=== PATIENT | female | born 1940 | race Caucasian/White ===

== ENCOUNTER 2016-10-02 12:27 | Inpatient (IN) | payer MEDICARE, BC ==
[~2016-10-02] VITALS: Ht 170.2 cm; Wt 118.0 kg
[~2016-10-02 12:27] MED LIST: AUGM875T PO; BACT800T5 PO; CARV6.25 PO; DILT31TA PO; EFFE25TA PO; LEVEMIR SQ; MAGN400T PO; METO2.5T7 PO; MIRA33502 PO; NOVOLOGSS SQ; PERC7.5T13 PO; PROBCAP4 PO; ROBA500T PO; SPIR25TA PO; STOO100T PO; TORS1TAB12 PO; WARF5TAB PO
[2016-10-02 12:44] VITALS: BP 145/89; PULSE 89; RESP 18; TEMP 98; O2SAT 100
[2016-10-02 12:49] VITALS: BP 145/89; PULSE 91; RESP 18; TEMP 98; O2SAT 100
[2016-10-02] MEDS ORDERED: SODIUM CHLOR 0.9% 1000 ML INJ 1,000 ML IV ONE (13:15)
--- NOTE | 2016-10-02 13:17 | PD ---
HPI . Constipation Chief Complaint: GI Complaint Time Seen by Provider: 12:57 Travel History International Travel<30 days: No Contact w/Intl Traveler<30days: No Traveled to known affect area: No History of Present Illness HPI This is a 76 year old female with morbid obesity, DM, CHF, HTN, Hyperlipidemia, Incontinence, and GENIA who presents with with a 10 day history of severe constipation. She reports not eating the past two days and this morning she had explosive diarrhea. She has been taking MiraLax and Dulcolax daily. She reports tenesmus, anxiety, lightheadedness, nausea, and mild diffuse abdominal pain. She denies any fevers, chest pain, SOB, hematochezia, melena, or hematemesis. She has no allergies. PFSH Past Medical History Hx Anticoagulant Therapy: Yes (WARFARIN ) Arthritis: Yes Asthma: No Atrial Fibrillation: Yes Blood Disorders: No Anxiety: Yes Depression: Yes Heart Rhythm Problems: Yes Cancer: Yes (CERVICAL ) Cardiovascular Problems: Yes (CHF, A FIB) High Cholesterol: No Chemotherapy: No Chest Pain: No Congestive Heart Failure: Yes COPD: No Cerebrovascular Accident: No Diabetes: Yes (TYPE 2 INSULIN DEPENDENT) Patient Takes Glucophage: No Diminished Hearing: No Endocrine: Yes Gastrointestinal Disorders: Yes GERD: No Glaucoma: No Genitourinary: Yes (INCONTINENT OF URINE) Hepatitis: No Hiatal Hernia: No Hypertension: Yes Immune Disorder: No Implanted Vascular Access Dvce: Yes Kidney Stones: No Musculoskeletal: Yes (ARTHRITIS) Neurologic: Yes Psychiatric: No Reproductive: No Respiratory: Yes Immunizations Current: No Migraines: No Myocardial Infarction: No Radiation Therapy: No Renal Failure: No Seizures: No Sleep Apnea: Yes (CPAP AT NIGHT) Thyroid Disease: No Ulcer: No Tetanus Vaccination: Unknown Influenza Vaccination: No ?: Not Menopausal: Yes Tubal Ligation: Yes Past Surgical History Abdominal Surgery: Yes (LAP BAND MAR 20, GALL BLADDER (67)) AICD: No Appendectomy: No Arteriovenous Shunt: No Body Medical Devices: ARTIFICAL KNEES BILATERALLY, LAPBAND Cholecystectomy: Yes Genitourinary Surgery: No Gynecologic Surgery: Yes (HYST AND TUBAL LIGATION, CA CERVIX) Hysterectomy: Yes Insulin Pump: No Joint Replacement: Yes (BILAT KNEE 2007) Pacemaker: No Thoracic Surgery: No Tonsillectomy: Yes Other Surgery: Yes (GALLBLADDER SURGERY, 2 COMPLETE KNEES, LAPBAND) Social History Alcohol Use: No Tobacco Use: No (10 PACK YEARS) 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) Allergies-Medications (Allergen,Severity, Reaction): Coded Allergies: *MDRO Multi-Drug Resistant Organism (Verified Adverse Reaction, Unknown, ) MRSA leg wound 10/2014, 11/2014, 02/2015 Reported Meds & Prescriptions Reported Meds & Active Scripts Active Bactrim DS (Sulfamethoxazole-Trimethoprim DS) 1 Tab Tab 1 Tab PO BID Augmentin 875 mg Tab (Amoxicillin & Pot Clavulanate 875 mg Tab) 875 Mg Tab 875 Mg PO BID Miralax (Polyethylene Glycol) 255 Gm Powd 1 Capful PO Q2HR PRN 5 Days MIX 1 CAPFUL (17 GM) IN 8 OZ WATER Coreg 6.25 mg (Carvedilol) 6.25 Mg Tab 12.5 Mg PO BID 30 Days Reported Probiotic Acidophilus (Acidophilus) Cap 1 Tab PO DAILY Levemir Insulin (Insulin Detemir) 100 Units/Ml Inj 50 Units SQ BID Robaxin (Methocarbamol) 500 Mg Tab 1,000 Mg PO PRN Effervescent Potassium/Ch (Potassium Bicarb & Chloride) 25 Meq Tab 75 Meq PO BID Mag-Ox 400 (Magnesium Oxide) 400 Mg Tab 400 Mg PO BID Cardizem 30 mg tab (Diltiazem HCl) 30 Mg Tab 30 Mg PO DAILY Demadex 20 mg (Torsemide) 20 Mg Tab 20 Mg PO BID Percocet 7.5/325 (Oxycodone/Acetaminophen) Oxycodone 7.5/325 Acetaminophen Tab 1 Tab PO Q6H PRN Warfarin Sodium 5 mg (Warfarin Sodium) 5 Mg Tab 5 Mg PO MOTUWETHFRSA EVERY DAY EXCEPT FRIDAY Stool Softener (Docusate Sodium) 100 Mg Tab 100 Mg PO HS Novolog Insulin Supplemental Scale (Insulin Aspart) 100 /Ml Inj Unknown Dose SQ TIDACHS Max dose at bedtime:( )units; sugars less than 70, (0)units; sugars 150-199, (5)unit; sugars 200-249, (10)units; sugars 250-299, (15) units; sugars 300-349, (20)units; sugars greater than 349, (25)units Spironolactone 25 Mg Tab 25 Mg PO BID Metolazone 2.5 Mg Tab 2.5 Mg PO BID Review of Systems Except as stated in HPI: all other systems reviewed are Neg General / Constitutional: No: Fever, Chills HENT: Positive: Lightheadedness, No: Headaches Cardiovascular: Positive: Diaphoresis, Syncope (near syncope after defecating ) , No: Chest Pain or Discomfort, Palpitations Respiratory: No: Cough, Shortness of Breath, Wheezing Gastrointestinal: Positive: Nausea, Diarrhea, Abdominal Pain, Constipation, No : Vomiting, Hematemesis, Hematochezia Genitourinary: No: Urgency, Frequency, Dysuria Skin: Positive Rash Neurologic: Positive: Weakness, Dizziness Physical Exam Narrative GENERAL: This is an obese female examined at bedside. She is in no acute distress She is alert and oriented x3. SKIN: Warm and dry. HEAD: Atraumatic. Normocephalic. EYES: Pupils equal and round. ENT: No nasal bleeding or discharge. Mucous membranes pink and moist. NECK: Trachea midline. CARDIOVASCULAR: Regular rate and rhythm. RESPIRATORY: No accessory muscle use. GASTROINTESTINAL: Abdomen is full but soft, no areas of focal tenderness. Bowel sounds are decreased.No rebound or guarding. MUSCULOSKELETAL: No obvious deformities. No edema. NEUROLOGICAL: Awake and alert. No obvious cranial nerve deficits. Motor grossly within normal limits. Normal speech. PSYCHIATRIC: Appropriate mood and affect; insight and judgment normal. Data Data Last Documented VS Vital Signs Date Time Temp Pulse Resp B/P (MAP) Pulse Ox O2 Delivery O2 Flow Rate FiO2 10/02/16 12:49 18 10/02/16 12:49 98.0 91 145/89 (107) 100 Room Air Orders Orders Urinalysis - C+S If Indicated (10/02/16 13:06) Sodium Chlor 0.9% 1000 Ml Inj (Ns 1000 M (10/02/16 13:15) Abdomen, Flat & Upright (10/02/16 ) Complete Blood Count With Diff (10/02/16 13:06) Comprehensive Metabolic Panel (10/02/16 13:06) Labs Laboratory Tests Test 10/02/16 13:20 White Blood Count 11.3 TH/MM3 Red Blood Count 5.65 MIL/MM3 Hemoglobin 15.0 GM/DL Hematocrit 44.6 % Mean Corpuscular Volume 79.0 FL Mean Corpuscular Hemoglobin 26.6 PG Mean Corpuscular Hemoglobin Concent 33.7 % Red Cell Distribution Width 15.4 % Platelet Count 295 TH/MM3 Mean Platelet Volume 8.6 FL Neutrophils (%) (Auto) 80.1 % Lymphocytes (%) (Auto) 11.0 % Monocytes (%) (Auto) 8.0 % Eosinophils (%) (Auto) 0.2 % Basophils (%) (Auto) 0.7 % Neutrophils # (Auto) 9.0 TH/MM3 Lymphocytes # (Auto) 1.2 TH/MM3 Monocytes # (Auto) 0.9 TH/MM3 Eosinophils # (Auto) 0.0 TH/MM3 Basophils # (Auto) 0.1 TH/MM3 CBC Comment DIFF FINAL Differential Comment Blood Urea Nitrogen 36 MG/DL Creatinine 1.20 MG/DL Random Glucose 213 MG/DL Total Protein 9.3 GM/DL Albumin 3.1 GM/DL Calcium Level 10.0 MG/DL Alkaline Phosphatase 84 U/L Aspartate Amino Transf (AST/SGOT) 23 U/L Alanine Aminotransferase (ALT/SGPT) 14 U/L Total Bilirubin 1.0 MG/DL Sodium Level 128 MEQ/L Potassium Level 3.1 MEQ/L Chloride Level 84 MEQ/L Carbon Dioxide Level 32.2 MEQ/L Anion Gap 12 MEQ/L Estimat Glomerular Filtration Rate 44 ML/MIN [facility] Medical Decision Making Medical Screen Exam Complete: Yes Emergency Medical Condition: Yes Differential Diagnosis Differential diagnosis of abdominal pain includes but is not limited to gastritis, pancreatitis, hepatitis, gastroenteritis, gallbladder disease, constipation, urinary retention, UTI, peptic ulcer disease, diverticulitis or appendicitis Narrative Course This patient presents with abdominal pain and constipation. She states her last normal bowel movement was more than a week ago. She does state that she has been taking MiraLAX and had a loose stool prior to presentation. Last Impressions Abdomen X-Ray 10/02/16 0000 Signed Impressions: Service Date/Time: Sunday, October 02, 2016 13:33 - CONCLUSION: 1. Postsurgical features of prior lap band procedure. 2. Stool noted throughout the colon consistent with some degree of constipation. 3. Borderline prominent loops of small bowel primarily in the left upper abdomen. This is nonspecific although very early developing ileus or partial small bowel obstruction cannot be excluded. Kevin Hung MD CBC & BMP Diagram 10/02/16 13:20 Total Protein 9.3 H, Albumin 3.1 L, Calcium Level 10.0, Alkaline Phosphatase 84 , Aspartate Amino Transf (AST/SGOT) 23, Alanine Aminotransferase (ALT/SGPT) 14, Total Bilirubin 1.[address] Physician Communication Physician Communication Dr. Benitez Diagnosis Primary Impression: Hyponatremia Additional Impressions: Hypokalemia Dehydration Constipation Qualified Codes: K59.00 - Constipation, unspecified Admitting Information Admitting Physician Requests: Observation Condition: Stable Beatriz Davies MD Oct 02, 2016 13:17
[2016-10-02 13:41] LABS: BASOPHIL # 0.1 TH/MM3 (0-0.2); BASOPHIL % 0.7 % (0.0-2.0); EOSINOPHIL % 0.2 % (0.0-4.0); HEMATOCRIT 44.6 % (35.0-46.0); HEMO FLAGS DIFF FINAL; LYMPHOCYTE # 1.2 TH/MM3 (1.0-4.8); MEAN CORPUSCULAR HEMOGLOBIN 26.6 PG (27.0-34.0); MEAN CORPUSCULAR HGB CONC 33.7 % (32.0-36.0); NEUT % 80.1 % (16.0-70.0); PLATELET COUNT 295 TH/MM3 (150-450); RED BLOOD COUNT 5.65 MIL/MM3 (4.00-5.30); RED CELL DISTRIBUTION WIDTH 15.4 % (11.6-17.2); WHITE BLOOD COUNT 11.3 TH/MM3 (4.0-11.0)
[2016-10-02 14:03] LABS: ALKALINE PHOSPHATASE 84 U/L (45-117)
[2016-10-02 14:06] LABS: ALT (GPT) 14 U/L (10-53); ANION GAP 12 MEQ/L (5-15); AST (GOT) 23 U/L (15-37); BICARBONATE 32.2 MEQ/L (21.0-32.0); BLOOD UREA NITROGEN 36 MG/DL (7-18); CHLORIDE 84 MEQ/L (98-107); GLOMERULAR FILTRATION RATE 44 ML/MIN (>89); SODIUM (NA) 128 MEQ/L (136-145)
[2016-10-02 14:08] LABS: POTASSIUM 3.1 MEQ/L (3.5-5.1)
--- NOTE | 2016-10-02 14:11 | RADRPT ---
EXAM DATE/TIME: 10/02/2016 13:33 [facility] COMPARISON: No previous studies available for comparison. INDICATIONS : Abdominal pain and constipation for ten days. MEDICAL HISTORY : SURGICAL HISTORY : Tubal ligation. Cholecystectomy. Hysterectomy. Lap band ENCOUNTER: Initial ACUITY: 2 weeks PAIN SCORE: 10/10 LOCATION: Bilateral Abdomen FINDINGS: Postsurgical features of lap band procedure with reservoir in the right lower quadrant. Air and stool seen throughout the colon. There are borderline prominent loops of small bowel primarily in the left upper abdomen. No significant air-fluid levels. No free air or pneumatosis. No abnormal calcificatio ns. Osseous structures are grossly intact. CONCLUSION: 1. Postsurgical features of prior lap band procedure. 2. Stool noted throughout the colon consistent with some degree of constipation. 3. Borderline prominent loops of small bowel primarily in the left upper abdomen. This is nonspecific although very early developing ileus or partial small bowel obstruction cannot be excluded. Kevin Hnug MD on October 02, 2016 at 14:04 Board Certified Radiologist. This report was verified electronically.
[2016-10-02 15:00] VITALS: BP 139/86; PULSE 93; RESP 18; O2SAT 98
[2016-10-02] MEDS ORDERED: DEXTROSE 50% IN WATER 50 ML VIAL(D50) IV PRN (15:15)
[2016-10-02] MEDS ORDERED: hydrALAZINE HCL 25 MG TAB PO PRN (15:15)
[2016-10-02] MEDS ORDERED: RESP: ALBUTEROL 2.5 MG/IPRATROPIUM 0.5 MG NEB (PRN) NEB (15:15)
[2016-10-02] MEDS ORDERED: GLUCAGON 1 MG/ML VIAL OTHER PRN (15:15)
[2016-10-02] MEDS ORDERED: ONDANSETRON HCL 4 MG/2 ML VIAL IVP PRN (15:15)
[2016-10-02] MEDS ORDERED: SODIUM CHLORIDE 0.9% FLUSH 10 ML FLUSH IV FLUSH PRN (15:15)
--- NOTE | 2016-10-02 15:18 | HHI.HP ---
[facility] Megan Strong MD Admission Diagnosis constipation, hyponatremia, hypokalemia Diagnoses: (1) Abdominal pain (2) Constipation (3) Hyponatremia (4) Hypokalemia Chief Complaint: Abdominal pain Travel History International Travel<30 Days: No Contact w/Intl Traveler <30 Da: No Traveled to Known Affected Are: No History of Present Illness 76-year-old female with a history of diabetes type 2, CHF, atrial fibrillation came to the ED for evaluation of severe abdominal pain due to constipation 10 days despite taking Miralax and Dulcolax. Patient has a history of neuropathy for which she is on chronic narcotics as well as medicinal marijuana. Although patient had one episode of exposed diarrhea this morning, she stated however when she went to sit on the toilet bowl she could not go. She reported decreased appetite and decreased by mouth intake for the past 2 days. Patient was found to have abnormal sodium and potassium. 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 History of cervical cancer Past Surgical History Total hysterectomy Lap Band in 2007 Tonsillectomy Cholecystectomy BL Total Knee replacements Reported Medications Bactrim DS (Sulfamethoxazole-Trimethoprim DS) 1 Tab Tab 1 Tab PO BID Augmentin 875 mg Tab (Amoxicillin & Pot Clavulanate 875 mg Tab) 875 Mg Tab 875 Mg PO BID Miralax (Polyethylene Glycol) 255 Gm Powd 1 Capful PO Q2HR PRN 5 Days MIX 1 CAPFUL (17 GM) IN 8 OZ WATER Coreg 6.25 mg (Carvedilol) 6.25 Mg Tab 12.5 Mg PO BID 30 Days Reported Probiotic Acidophilus (Acidophilus) Cap 1 Tab PO DAILY Levemir Insulin (Insulin Detemir) 100 Units/Ml Inj 50 Units SQ BID Robaxin (Methocarbamol) 500 Mg Tab 1,000 Mg PO PRN Effervescent Potassium/Ch (Potassium Bicarb & Chloride) 25 Meq Tab 75 Meq PO BID Mag-Ox 400 (Magnesium Oxide) 400 Mg Tab 400 Mg PO BID Cardizem 30 mg tab (Diltiazem HCl) 30 Mg Tab 30 Mg PO DAILY Demadex 20 mg (Torsemide) 20 Mg Tab 20 Mg PO BID Percocet 7.5/325 (Oxycodone/Acetaminophen) Oxycodone 7.5/325 Acetaminophen Tab 1 Tab PO Q6H PRN Warfarin Sodium 5 mg (Warfarin Sodium) 5 Mg Tab 5 Mg PO MOTUWETHFRSA EVERY DAY EXCEPT FRIDAY Stool Softener (Docusate Sodium) 100 Mg Tab 100 Mg PO HS Novolog Insulin Supplemental Scale (Insulin Aspart) 100 /Ml Inj Unknown Dose SQ TIDACHS Max dose at bedtime:( )units; sugars less than 70, (0)units; sugars 150-199, (5)unit; sugars 200-249, (10)units; sugars 250-299, (15) units; sugars 300-349, (20)units; sugars greater than 349, (25)units Spironolactone 25 Mg Tab 25 Mg PO BID Metolazone 2.5 Mg Tab 2.5 Mg PO BID Allergies: Coded Allergies: *MDRO Multi-Drug Resistant Organism (Verified Adverse Reaction, Unknown, ) MRSA leg wound 10/2014, 11/2014, 02/2015 Family History Not relevant secondary to patient age Social History Never smoked, denies Etoh, denies drug use. Physical Exam Vital Signs Vital Signs Date Time Temp Pulse Resp B/P (MAP) Pulse Ox O2 Delivery O2 Flow Rate FiO2 10/02/16 12:49 18 10/02/16 12:49 98.0 91 18 145/89 (107) 100 Room Air 10/02/16 12:44 98.0 89 18 145/89 (107) 100 Physical Exam GENERAL: This is a well-nourished, well-developed obese patient, in no apparent distress. SKIN: No rashes, ecchymoses or lesions. Cool and dry. HEAD: Atraumatic. Normocephalic. No temporal or scalp tenderness. EYES: Pupils equal round and reactive. Extraocular motions intact. No scleral icterus. No injection or drainage. ENT: Nose without bleeding, purulent drainage or septal hematoma. Throat without erythema, tonsillar hypertrophy or exudate. Uvula midline. Airway patent. NECK: Trachea midline. No JVD or lymphadenopathy. Supple, nontender, no meningeal signs. CARDIOVASCULAR: Regular rate and rhythm without murmurs, gallops, or rubs. RESPIRATORY: Clear to auscultation. Breath sounds equal bilaterally. No wheezes , rales, or rhonchi. GASTROINTESTINAL: Abdomen soft, mildly tender, nondistended. No hepato- splenomegaly, or palpable masses. No guarding. Positive bowel sounds MUSCULOSKELETAL: Extremities without clubbing, cyanosis, or edema. No joint tenderness, effusion, or edema noted. No calf tenderness. Negative Homans sign bilaterally. NEUROLOGICAL: Awake and alert. Cranial nerves II through XII intact. Motor and sensory grossly within normal limits. Five out of 5 muscle strength in all muscle groups. Normal speech. Laboratory Laboratory Tests Test 10/02/16 13:20 White Blood Count 11.3 Red Blood Count 5.65 Hemoglobin 15.0 Hematocrit 44.6 Mean Corpuscular Volume 79.0 Mean Corpuscular Hemoglobin 26.6 Mean Corpuscular Hemoglobin Concent 33.7 Red Cell Distribution Width 15.4 Platelet Count 295 Mean Platelet Volume 8.6 Neutrophils (%) (Auto) 80.1 Lymphocytes (%) (Auto) 11.0 Monocytes (%) (Auto) 8.0 Eosinophils (%) (Auto) 0.2 Basophils (%) (Auto) 0.7 Neutrophils # (Auto) 9.0 Lymphocytes # (Auto) 1.2 Monocytes # (Auto) 0.9 Eosinophils # (Auto) 0.0 Basophils # (Auto) 0.1 CBC Comment DIFF FINAL Differential Comment Blood Urea Nitrogen 36 Creatinine 1.20 Random Glucose 213 Total Protein 9.3 Albumin 3.1 Calcium Level 10.0 Alkaline Phosphatase 84 Aspartate Amino Transf (AST/SGOT) 23 Alanine Aminotransferase (ALT/SGPT) 14 Total Bilirubin 1.0 Sodium Level 128 Potassium Level 3.1 Chloride Level 84 Carbon Dioxide Level 32.2 Anion Gap 12 Estimat Glomerular Filtration Rate 44 Result Diagram: 10/02/16 1320 10/02/16 1320 Imaging Last Impressions Abdomen X-Ray 10/02/16 0000 Signed Impressions: Service Date/Time: Sunday, October 02, 2016 13:33 - CONCLUSION: 1. Postsurgical features of prior lap band procedure. 2. Stool noted throughout the colon consistent with some degree of constipation. 3. Borderline prominent loops of small bowel primarily in the left upper abdomen. This is nonspecific although very early developing ileus or partial small bowel obstruction cannot be excluded. MD Claudio Robison VTE Risk Assessment Caprini Risk Assessment Model Point Value = 1 Point Value = 2 Point Value = 3 Point Value = 5 Age 41-60 Minor surgery BMI > 25 kg/m2 Swollen legs Varicose veins or History of unexplained or recurrent spontaneous Oral contraceptives or hormone replacement Sepsis (< 1 month) Serious lung disease, including pneumonia (< 1 month) Abnormal pulmonary function Acute myocardial infarction Congestive heart failure (< 1 month) History of inflammatory bowel disease Medical patient at bed rest Age 61-74 Arthroscopic surgery Major open surgery (> 45 min) Laparoscopic surgery (> 45 min) Malignancy Confined to bed (> 72 hours) Immobilizing plaster cast Central venous access Age >= 75 History of VTE Family history of VTE Factor V Leiden Prothrombin [id number] Lupus anticoagulant Anticardiolipin antibodies Elevated serum homocysteine Heparin-induced thrombocytopenia Other congenital or acquired thrombophilia Stroke (< 1 month) Elective arthroplasty Hip, pelvis, or leg fracture Acute spinal cord injury (< 1 month) Prophylaxis Regimen Total Risk Factor Score Risk Level Prophylaxis Regimen 0-1 Low Early ambulation 2 Moderate Order ONE of the following: *Sequential Compression Device (SCD) *Heparin 5000 units SQ BID 3-4 Higher Order ONE of the following medications: *Heparin 5000 units SQ TID *Enoxaparin/Lovenox 40 mg SQ daily (WT < 150 kg, CrCl > 30 mL/min) *Enoxaparin/Lovenox 30 mg SQ daily (WT < 150 kg, CrCl > 10-29 mL/min) *Enoxaparin/Lovenox 30 mg SQ BID (WT < 150 kg, CrCl > 30 mL/min) AND/OR *Sequential Compression Device (SCD) 5 or more Highest Order ONE of the following medications: *Heparin 5000 units SQ TID (Preferred with Epidurals) *Enoxaparin/Lovenox 40 mg SQ daily (WT < 150 kg, CrCl > 30 mL/min) *Enoxaparin/Lovenox 30 mg SQ daily (WT < 150 kg, CrCl > 10-29 mL/min) *Enoxaparin/Lovenox 30 mg SQ BID (WT < 150 kg, CrCl > 30 mL/min) AND *Sequential Compression Device (SCD) Assessment and Plan Problem List: (1) Abdominal pain ICD Code: R10.9 - Unspecified abdominal pain (2) Hyponatremia ICD Code: E87.1 - Hypo-osmolality and hyponatremia Status: Acute (3) Hypokalemia ICD Code: E87.6 - Hypokalemia Status: Acute Assessment and Plan 76 yrs old female Abdominal pain Constipation secondary to narcotics use X-ray abdomen noted and review by me with finding of constipation as well as possible ileus vs partial SBO Repeat flat and upright in a.m. Treat with stool softener now Hyponatremia Start normal saline and monitor electrolytes Hypokalemia Give potassium 60 mEq 1 now Acute on chronic kidney disease stage III Gentle IV fluid hydration Monitor BUN and creatinine and avoid all nephrotoxic drugs Diabetes type 2 Poorly controlled blood glucose Resume outpatient medications and start insulin sliding scale Check hemoglobin A1c History of atrial fibrillation Check INR/PT Resume Coreg and warfarin, monitor INR/PT Other chronic medical conditions Resume outpatient medications DVT prophylaxis: Coumadin Code Status Full code Discussed Condition With Patient, ED physician Problem Qualifiers (1) Constipation: Qualified Codes: K59.00 - Constipation, unspecified Mj Benitez MD Oct 02, 2016 15:18
[2016-10-02] MEDS ORDERED: LYRI50CA PO (15:22)
[2016-10-02] MEDS ORDERED: KLOR25TA2 PO (15:22)
[2016-10-02] MEDS ORDERED: METO5TAB3 PO (15:22)
[2016-10-02] MEDS ORDERED: NOVOLOGP2 SQ (15:22)
[2016-10-02] MEDS ORDERED: OXYC1TAB36 PO (15:22)
[2016-10-02] MEDS ORDERED: STOO100C PO (15:22)
[2016-10-02] MEDS ORDERED: VITA1000 PO (15:22)
[2016-10-02] MEDS ORDERED: INSU1INJ14 SQ (15:22)
[2016-10-02] MEDS ORDERED: TORS20TA PO (15:22)
[2016-10-02] MEDS ORDERED: MAGN400T PO (15:22)
[2016-10-02] MEDS ORDERED: CARV12.52 PO (15:22)
[2016-10-02] MEDS ORDERED: GARC500T PO (15:22)
[2016-10-02] MEDS ORDERED: WARF-18 PO (15:22)
[2016-10-02] MEDS: INSULIN ASPART SUPPLEMENTAL SCALE SQ SCH ×2 (16:00→21:00)
[2016-10-02] MEDS ORDERED: POTASSIUM CHLORIDE 20 MEQ CONTROLLED RELEASE TAB PO ONE (16:00)
[2016-10-02] MEDS: SODIUM CHLOR 0.9% 1000 ML INJ 1,000 ML IV SCH ×2 (17:32→21:08)
[2016-10-02] MEDS ORDERED: [UNRECOGNIZED DRUG - OTHER] PO SCH (21:00)
[2016-10-02] MEDS ORDERED: GARCINIA CAMBOGIA PO SCH (21:00)
[2016-10-02] MEDS ORDERED: CHROMIUM PO SCH (21:00)
[2016-10-02] MEDS: INSULIN DEGLUDEC 80 UNIT SQ SCH (21:00)
[2016-10-02] MEDS: ACETAMINOPHEN 325 MG TAB PO PRN (21:06)
[2016-10-02] MEDS: SODIUM CHLORIDE 0.9% FLUSH 10 ML FLUSH IV FLUSH SCH (21:06)
[2016-10-02] MEDS: TEMAZEPAM 15 MG CAP PO PRN (21:06)
[2016-10-02 22:43] LABS: INTERNATIONAL NORMALIZED RATIO 1.4 RATIO; PROTHROMBIN TIME - PATIENT 16.1 SEC (9.8-11.6)
[2016-10-02 23:43] VITALS: BP 140/71; PULSE 95; RESP 19; TEMP 98.2; O2SAT 98
[2016-10-03 03:58] VITALS: BP 147/88; PULSE 89; RESP 19; TEMP 97.7; O2SAT 97
[2016-10-03 05:34] LABS: AUTOMATED NEUTROPHIL # 10.1 TH/MM3 (1.8-7.7); BASOPHIL % 0.3 % (0.0-2.0); EOSINOPHIL % 0.1 % (0.0-4.0); HEMATOCRIT 41.4 % (35.0-46.0); HEMO FLAGS DIFF FINAL; LYMPH % 13.9 % (9.0-44.0); LYMPHOCYTE # 1.8 TH/MM3 (1.0-4.8); MEAN CELL VOLUME 78.9 FL (80.0-100.0); MEAN CORPUSCULAR HEMOGLOBIN 26.6 PG (27.0-34.0); MEAN CORPUSCULAR HGB CONC 33.7 % (32.0-36.0); MONO % 8.8 % (0.0-8.0); NEUT % 76.9 % (16.0-70.0); PLATELET COUNT 323 TH/MM3 (150-450); RED BLOOD COUNT 5.25 MIL/MM3 (4.00-5.30); RED CELL DISTRIBUTION WIDTH 15.4 % (11.6-17.2); WHITE BLOOD COUNT 13.2 TH/MM3 (4.0-11.0)
[2016-10-03 05:44] LABS: INTERNATIONAL NORMALIZED RATIO 1.4 RATIO; PROTHROMBIN TIME - PATIENT 15.8 SEC (9.8-11.6)
[2016-10-03 05:57] LABS: ANION GAP 6 MEQ/L (5-15)
[2016-10-03 05:59] LABS: ALKALINE PHOSPHATASE 79 U/L (45-117); ALT (GPT) 12 U/L (10-53); AST (GOT) 15 U/L (15-37); BICARBONATE 34.6 MEQ/L (21.0-32.0); BLOOD UREA NITROGEN 27 MG/DL (7-18); CHLORIDE 92 MEQ/L (98-107); GLOMERULAR FILTRATION RATE 54 ML/MIN (>89); SODIUM (NA) 133 MEQ/L (136-145); TOTAL BILIRUBIN ADULT 1.1 MG/DL (0.2-1.0)
[2016-10-03 06:03] LABS: POTASSIUM 2.8 MEQ/L (3.5-5.1)
[2016-10-03] MEDS ORDERED: POTASSIUM CHLORIDE 20 MEQ CONTROLLED RELEASE TAB PO ONE ×2 (06:30→08:30)
--- NOTE | 2016-10-03 06:42 | RADRPT ---
EXAM DATE/TIME: 10/03/2016 06:12 [facility] COMPARISON: ABDOMEN FLAT & UPRIGHT, October 02, 2016, 13:33. INDICATIONS : Abdominal pain, vomiting MEDICAL HISTORY : None. SURGICAL HISTORY : Tubal ligation. Cholecystectomy. Hysterectomy. Lap band ENCOUNTER: Subsequent ACUITY: 2 weeks PAIN SCORE: 10/10 LOCATION: Bilateral abdomen FINDINGS: Supine and upright views of the abdomen were performed. Again seen is a mild ileus. No free air. No e vidence for obstruction. Stable postsurgical changes. No acute bony findings. CONCLUSION: 1. Mild ileus, stable. Marty Avila MD on October 03, 2016 at 6:39 Board Certified Radiologist. This report was verified electronically.
[2016-10-03] MEDS: POTASSIUM CHLOR 20 MEQ PREMIX 100 ML IV SCH ×2 (06:47→09:27)
[2016-10-03] MEDS: INSULIN ASPART SUPPLEMENTAL SCALE SQ SCH ×4 (07:28→21:00)
[2016-10-03 07:49] VITALS: BP 143/79; PULSE 91; RESP 18; TEMP 97.7; O2SAT 95
--- NOTE | 2016-10-03 09:21 | HHI.PR ---
Subjective Remarks Follow up abdominal pain/severe constipation/mild ileus/Hypokalemia 10/03/16-patient seen and examined; she had multiple Bowel movement since admission how she still feels like bloated and states there is still a blockage. Complains of generalized pain Objective Vitals Vital Signs Date Time Temp Pulse Resp B/P (MAP) Pulse Ox O2 Delivery O2 Flow Rate FiO2 10/03/16 07:49 97.7 91 18 143/79 (100) 95 10/03/16 03:58 97.7 89 19 147/88 (107) 97 10/02/16 23:43 98.2 95 19 140/71 (94) 98 10/02/16 21:38 18 10/02/16 15:52 10/02/16 15:00 93 18 139/86 (103) 98 Room Air 10/02/16 12:49 18 10/02/16 12:49 98.0 91 18 145/89 (107) 100 Room Air 10/02/16 12:44 98.0 89 18 145/89 (107) 100 I/O 10/02/16 10/02/16 10/02/16 10/03/16 10/03/16 10/03/16 06:59 14:59 22:59 06:59 14:59 22:59 Intake Total 1000 ml Balance 1000 ml Intake IV Total 1000 ml Result Diagram: 10/03/16 0501 10/03/16 0501 Imaging Last Impressions Abdomen X-Ray 10/03/16 0600 Signed Impressions: Service Date/Time: September 06:12 - CONCLUSION: 1. Mild ileus, stable. Marty Avila MD Objective Remarks GENERAL: NAD SKIN: Warm and dry. HEAD: Normocephalic. EYES: No scleral icterus. No injection or drainage. NECK: Supple, trachea midline. No JVD or lymphadenopathy. CARDIOVASCULAR: Regular rate and rhythm without murmurs, gallops, or rubs. RESPIRATORY: Breath sounds equal bilaterally. No accessory muscle use. GASTROINTESTINAL: obese, Abdomen soft, mildly tender, nondistended. +BS MUSCULOSKELETAL: No cyanosis, or edema. BACK: Nontender without obvious deformity. No CVA tenderness. A/P Problem List: (1) Abdominal pain ICD Code: R10.9 - Unspecified abdominal pain (2) Constipation ICD Code: K59.00 - Constipation Status: Resolved (3) Hyponatremia ICD Code: E87.1 - Hypo-osmolality and hyponatremia Status: Acute (4) Hypokalemia ICD Code: E87.6 - Hypokalemia Status: Acute Assessment and Plan 76 yrs old female Mild Ileus Abdominal pain Constipation secondary to narcotics use Repeat Flat and upright with finding of still mild ileus Continue with conservative treatment with stool softener Hyponatremia Improving with normal saline and monitor electrolytes Hypokalemia Give potassium total of 80 mEq and repeat K Acute on chronic kidney disease stage III Improving with Gentle IV fluid hydration Monitor BUN and creatinine and avoid all nephrotoxic drugs Diabetes type 2 Continue outpatient medications and start insulin sliding scale hemoglobin A1c History of atrial fibrillation Check INR/PT continue Coreg and warfarin, monitor INR/PT Leukocytosis UA pending Other chronic medical conditions continue outpatient medications PT consult to treat DVT prophylaxis: Coumadin Discharge Planning Discharge home with C vs SNF next 24-48hrs Problem Qualifiers (1) Constipation: Qualified Codes: K59.00 - Constipation, unspecified Mj Benitez MD Oct 03, 2016 09:21
[2016-10-03] MEDS: WARFARIN SOD 2.5 MG TAB PO SCH (09:28)
[2016-10-03] MEDS: CARVEDILOL 12.5 MG TAB PO SCH (09:28)
[2016-10-03] MEDS: PREGABALIN 25 MG CAP PO SCH (09:28)
[2016-10-03] MEDS: SODIUM CHLORIDE 0.9% FLUSH 10 ML FLUSH IV FLUSH SCH ×2 (09:29→21:00)
[2016-10-03] MEDS: TORSEMIDE 20 MG TAB PO SCH (09:29)
[2016-10-03] MEDS: MAGNESIUM OXIDE 400 MG TAB PO SCH (09:29)
[2016-10-03] MEDS ORDERED: SOD PHOSPHATE/SOD BIPHOSPHATE (ADULT) ENEMA 133ML PR ONE (09:30)
[2016-10-03] MEDS: SODIUM CHLOR 0.9% 1000 ML INJ 1,000 ML IV SCH ×2 (11:30→21:51)
[2016-10-03 11:35] VITALS: BP 140/95; PULSE 97; RESP 20; TEMP 97.7; O2SAT 98
[2016-10-03 12:19] LABS: HEMOGLOBIN A1b 1.1 %; HEMOGLOBIN Ao 82.1 %; HEMOGLOBIN F 1.1 %; HEMOGLOBIN LA1C 2.5 %; HEMOGLOBIN P3 6.2 %
[2016-10-03 20:11] VITALS: BP 159/79; PULSE 100; RESP 18; TEMP 98.2; O2SAT 96
[2016-10-03] MEDS: INSULIN DEGLUDEC 80 UNIT SQ SCH (21:00)
[2016-10-03] MEDS: DOCUSATE SODIUM 50 MG/SENNA 8.6 MG TAB PO PRN (21:26)
[2016-10-03] MEDS: TEMAZEPAM 15 MG CAP PO PRN (21:26)
[2016-10-03 22:53] VITALS: BP 150/65; PULSE 65; RESP 18; TEMP 97.6; O2SAT 98
[2016-10-04] MEDS: ACETAMINOPHEN 325 MG TAB PO PRN (00:21)
[2016-10-04 03:18] VITALS: BP 150/68; PULSE 65; RESP 18; TEMP 97.7; O2SAT 98
[2016-10-04 06:18] LABS: AUTOMATED NEUTROPHIL # 13.2 TH/MM3 (1.8-7.7); BASOPHIL # 0.1 TH/MM3 (0-0.2); BASOPHIL % 0.3 % (0.0-2.0); EOSINOPHIL % 0.1 % (0.0-4.0); HEMATOCRIT 45.7 % (35.0-46.0); HEMO FLAGS DIFF FINAL; LYMPH % 9.9 % (9.0-44.0); LYMPHOCYTE # 1.6 TH/MM3 (1.0-4.8); MEAN CELL VOLUME 79.3 FL (80.0-100.0); MEAN CORPUSCULAR HEMOGLOBIN 25.9 PG (27.0-34.0); MEAN CORPUSCULAR HGB CONC 32.7 % (32.0-36.0); NEUT % 82.7 % (16.0-70.0); PLATELET COUNT 377 TH/MM3 (150-450); RED BLOOD COUNT 5.76 MIL/MM3 (4.00-5.30); RED CELL DISTRIBUTION WIDTH 15.7 % (11.6-17.2)
[2016-10-04 06:30] LABS: INTERNATIONAL NORMALIZED RATIO 1.3 RATIO; PROTHROMBIN TIME - PATIENT 14.4 SEC (9.8-11.6)
[2016-10-04 06:33] LABS: BICARBONATE 29.5 MEQ/L (21.0-32.0)
[2016-10-04 06:39] LABS: POTASSIUM 2.8 MEQ/L (3.5-5.1)
[2016-10-04] MEDS: INSULIN ASPART SUPPLEMENTAL SCALE SQ SCH ×4 (06:43→21:21)
[2016-10-04 07:28] VITALS: BP 170/101; PULSE 97; RESP 20; TEMP 97.5; O2SAT 97
[2016-10-04] MEDS: SODIUM CHLOR 0.9% 1000 ML INJ 1,000 ML IV SCH ×2 (07:30→18:16)
[2016-10-04] MEDS: SODIUM CHLORIDE 0.9% FLUSH 10 ML FLUSH IV FLUSH SCH ×2 (07:54→21:14)
[2016-10-04] MEDS: CARVEDILOL 12.5 MG TAB PO SCH (08:01)
[2016-10-04] MEDS: TORSEMIDE 20 MG TAB PO SCH (08:01)
[2016-10-04] MEDS: PREGABALIN 25 MG CAP PO SCH (08:01)
[2016-10-04] MEDS: MAGNESIUM OXIDE 400 MG TAB PO SCH (08:01)
[2016-10-04] MEDS: WARFARIN SOD 2.5 MG TAB PO SCH (08:02)
[2016-10-04] MEDS ORDERED: POTASSIUM CHLORIDE 25 MEQ EFFERVESCENT TAB PO ONE (10:30)
[2016-10-04 11:47] VITALS: BP 125/97; PULSE 102; RESP 16; TEMP 97.3; O2SAT 97
--- NOTE | 2016-10-04 14:12 | HHI.PR ---
Subjective Remarks Follow up abdominal pain/severe constipation/mild ileus/Hypokalemia 10/03/16-patient seen and examined; she had multiple Bowel movement since admission how she still feels like bloated and states there is still a blockage. Complains of generalized pain 10/04/16-patient seen and examined, states she is still back up and believes she still has stool causing her to have severe constipation despite the fact she is having bowel movement. Potassium 2.8 Objective Vitals Vital Signs Date Time Temp Pulse Resp B/P (MAP) Pulse Ox O2 Delivery O2 Flow Rate FiO2 10/04/16 11:47 97.3 102 16 125/97 (106) 97 10/04/16 07:28 97.5 97 20 170/101 (124) 97 10/04/16 03:18 97.7 65 18 150/68 (95) 98 10/04/16 02:27 18 10/03/16 22:53 97.6 65 18 150/65 (93) 98 10/03/16 20:11 98.2 100 18 159/79 (105) 96 Result Diagram: 10/04/16 0416 10/04/16 0416 Objective Remarks GENERAL: NAD SKIN: Warm and dry. HEAD: Normocephalic. EYES: No scleral icterus. No injection or drainage. NECK: Supple, trachea midline. No JVD or lymphadenopathy. CARDIOVASCULAR: Regular rate and rhythm without murmurs, gallops, or rubs. RESPIRATORY: Breath sounds equal bilaterally. No accessory muscle use. GASTROINTESTINAL: obese, Abdomen soft, mildly tender, nondistended. +BS MUSCULOSKELETAL: No cyanosis, or edema. BACK: Nontender without obvious deformity. No CVA tenderness. A/P Problem List: (1) Abdominal pain ICD Code: R10.9 - Unspecified abdominal pain (2) Constipation ICD Code: K59.00 - Constipation Status: Resolved (3) Hyponatremia ICD Code: E87.1 - Hypo-osmolality and hyponatremia Status: Acute (4) Hypokalemia ICD Code: E87.6 - Hypokalemia Status: Acute Assessment and Plan 76 yrs old female Mild Ileus Abdominal pain Constipation secondary to narcotics use Repeat Flat and upright with finding of still mild ileus Continue with conservative treatment with stool softener Hyponatremia Improving with normal saline and monitor electrolytes Hypokalemia Give potassium as well as marked oxide Acute on chronic kidney disease stage III Improved with Gentle IV fluid hydration Monitor BUN and creatinine and avoid all nephrotoxic drugs Diabetes type 2 Continue outpatient medications and start insulin sliding scale hemoglobin A1c 6.9 History of atrial fibrillation continue Coreg and warfarin, monitor INR/PT Leukocytosis UA pending Check chest x-ray as well as blood culture Start empiric treatment with vancomycin Other chronic medical conditions continue outpatient medications PT consult to treat DVT prophylaxis: Coumadin Problem Qualifiers (1) Constipation: Qualified Codes: K59.00 - Constipation, unspecified Mj Benitez MD Oct 04, 2016 14:12
[2016-10-04] MEDS ORDERED: VANCOMYCIN INJ 1,000 MG in SODIUM CHLOR 0.9% 250 ML INJ 250 ML IV SCH (16:00)
[2016-10-04] MEDS ORDERED: Vancomycin Consult Pharmacy 1 EA OTHER SCH (16:00)
--- NOTE | 2016-10-04 16:19 | RADRPT ---
EXAM DATE/TIME: 10/04/2016 15:56 [facility] COMPARISON: CHEST SINGLE AP, March 11, 2015, 13:56. INDICATIONS : Chest discomfort, abdomen pain. MEDICAL HISTORY : Diabetes mellitus type II. Congestive heart failure. SURGICAL HISTORY : Tubal ligation. Cholecystectomy. Hysterectomy. Lap band. ENCOUNTER: Subsequent ACUITY: 2 weeks PAIN SCORE: 1/10 LOCATION: Bilateral chest FINDINGS: Portable AP view of the chest demonstrates a normal-sized cardiac silhouette with calcification of th e aorta. No effusion, consolidation, or pneumothorax is identified. Bones and soft tissues demonstrat e no acute finding. There is abnormal elevation of the humeral heads bilaterally. CONCLUSION: 1. No acute cardiopulmonary abnormality is identified. 2. Finding suggesting chronic rotator cuff tears bilaterally. Clif Barraza MD on October 04, 2016 at 16:16 Board Certified Radiologist. This report was verified electronically.
[2016-10-04 17:32] VITALS: BP 135/84; PULSE 95; RESP 16; TEMP 97.6; O2SAT 99
[2016-10-04] MEDS: POTASSIUM CHLORIDE 20 MEQ CONTROLLED RELEASE TAB PO SCH ×2 (20:16→21:14)
[2016-10-04 20:45] VITALS: BP 144/97; PULSE 92; RESP 18; TEMP 97.2; O2SAT 96
[2016-10-04] MEDS ORDERED: PREGABALIN 25 MG CAP PO ONE (20:45)
[2016-10-04] MEDS: INSULIN DEGLUDEC 80 UNIT SQ SCH (21:00)
[2016-10-05] VITALS (8 sets, daily range): BP systolic 131–144; BP diastolic 64–101; PULSE 86–96; RESP 18–20; TEMP 95.3–97.4; O2SAT 95–99
[2016-10-05] MEDS: TEMAZEPAM 15 MG CAP PO PRN ×2 (02:44→21:18)
[2016-10-05] MEDS: DOCUSATE SODIUM 50 MG/SENNA 8.6 MG TAB PO PRN ×2 (02:44→21:21)
[2016-10-05 06:38] LABS: INTERNATIONAL NORMALIZED RATIO 1.3 RATIO
[2016-10-05 06:43] LABS: AUTOMATED NEUTROPHIL # 12.4 TH/MM3 (1.8-7.7); BASOPHIL # 0.1 TH/MM3 (0-0.2); BASOPHIL % 0.4 % (0.0-2.0); EOSINOPHIL % 0.3 % (0.0-4.0); HEMATOCRIT 45.1 % (35.0-46.0); HEMO FLAGS DIFF FINAL; LYMPH % 14.4 % (9.0-44.0); LYMPHOCYTE # 2.3 TH/MM3 (1.0-4.8); MEAN CELL VOLUME 78.9 FL (80.0-100.0); MEAN CORPUSCULAR HEMOGLOBIN 25.8 PG (27.0-34.0); MEAN CORPUSCULAR HGB CONC 32.7 % (32.0-36.0); MONO % 7.8 % (0.0-8.0); NEUT % 77.1 % (16.0-70.0); PLATELET COUNT 325 TH/MM3 (150-450); RED BLOOD COUNT 5.72 MIL/MM3 (4.00-5.30); RED CELL DISTRIBUTION WIDTH 15.5 % (11.6-17.2)
[2016-10-05 07:11] LABS: BICARBONATE 25.7 MEQ/L (21.0-32.0); POTASSIUM 3.4 MEQ/L (3.5-5.1)
[2016-10-05] MEDS: INSULIN ASPART SUPPLEMENTAL SCALE SQ SCH ×4 (08:34→21:00)
[2016-10-05] MEDS: POTASSIUM CHLORIDE 20 MEQ CONTROLLED RELEASE TAB PO SCH ×2 (08:52→21:18)
[2016-10-05] MEDS: CARVEDILOL 12.5 MG TAB PO SCH (08:52)
[2016-10-05] MEDS: ACETAMINOPHEN 325 MG TAB PO PRN ×2 (08:56→23:13)
[2016-10-05] MEDS: WARFARIN SOD 2.5 MG TAB PO SCH (08:56)
[2016-10-05] MEDS: TORSEMIDE 20 MG TAB PO SCH (08:56)
[2016-10-05] MEDS: SODIUM CHLORIDE 0.9% FLUSH 10 ML FLUSH IV FLUSH SCH ×2 (08:56→21:00)
[2016-10-05] MEDS: SODIUM CHLOR 0.9% 1000 ML INJ 1,000 ML IV SCH ×3 (08:57→23:15)
[2016-10-05] MEDS: MAGNESIUM OXIDE 400 MG TAB PO SCH (08:59)
[2016-10-05] MEDS: PREGABALIN 25 MG CAP PO SCH ×2 (08:59→11:49)
[2016-10-05] MEDS: ALUMINUM/MAGNESIUM/SIMETH 30 ML CUP PO PRN ×2 (09:04→21:18)
--- NOTE | 2016-10-05 11:54 | HHI.PR ---
Subjective Remarks Follow up abdominal pain/severe constipation/mild ileus/Hypokalemia 10/03/16-patient seen and examined; she had multiple Bowel movement since admission how she still feels like bloated and states there is still a blockage. Complains of generalized pain 10/04/16-patient seen and examined, states she is still back up and believes she still has stool causing her to have severe constipation despite the fact she is having bowel movement. Potassium 2.8 10/05/16-patient seen and examined, still complaining of feeling back up with stool, potassium 3.4. She was started yesterday empiric vancomycin Objective Vitals Vital Signs Date Time Temp Pulse Resp B/P (MAP) Pulse Ox O2 Delivery O2 Flow Rate FiO2 10/05/16 08:00 95.6 94 20 144/101 (115) 99 10/05/16 04:41 97.3 94 18 136/70 (92) 95 10/05/16 01:07 96 10/05/16 00:45 97.0 96 18 143/80 (101) 97 10/04/16 20:45 97.2 92 18 144/97 (113) 96 10/04/16 17:32 97.6 95 16 135/84 (101) 99 I/O 10/04/16 10/04/16 10/04/16 10/05/16 10/05/16 10/05/16 06:59 14:59 22:59 06:59 14:59 22:59 Intake Total 240 ml 240 ml 0 ml Balance 240 ml 240 ml 0 ml Intake Oral 240 ml 240 ml IV Total 0 ml # Voids 2 # Bowel Movements 0 Result Diagram: 10/05/16 0553 10/05/16 0553 Objective Remarks GENERAL: NAD SKIN: Warm and dry. HEAD: Normocephalic. EYES: No scleral icterus. No injection or drainage. NECK: Supple, trachea midline. No JVD or lymphadenopathy. CARDIOVASCULAR: Regular rate and rhythm without murmurs, gallops, or rubs. RESPIRATORY: Breath sounds equal bilaterally. No accessory muscle use. GASTROINTESTINAL: obese, Abdomen soft, mildly tender, nondistended. +BS MUSCULOSKELETAL: No cyanosis, or edema. BACK: Nontender without obvious deformity. No CVA tenderness. A/P Problem List: (1) Abdominal pain ICD Code: R10.9 - Unspecified abdominal pain (2) Constipation ICD Code: K59.00 - Constipation Status: Resolved (3) Hyponatremia ICD Code: E87.1 - Hypo-osmolality and hyponatremia Status: Acute (4) Hypokalemia ICD Code: E87.6 - Hypokalemia Status: Acute Assessment and Plan 76 yrs old female Mild Ileus Abdominal pain Constipation secondary to narcotics use Repeat Flat and upright with finding of still mild ileus Continue with conservative treatment with stool softener Give Fleet enema 1 today Hyponatremia Improving with normal saline and monitor electrolytes Hypokalemia 3.4 today and improving Acute on chronic kidney disease stage III Improved with Gentle IV fluid hydration Monitor BUN and creatinine and avoid all nephrotoxic drugs Diabetes type 2 Continue outpatient medications and insulin sliding scale hemoglobin A1c 6.9 History of atrial fibrillation continue Coreg and warfarin, monitor INR/PT Leukocytosis UA pending Chest x-ray noted and unremarkable Blood culture pending Continue empiric treatment with vancomycin Other chronic medical conditions continue outpatient medications PT consult to treat DVT prophylaxis: Coumadin Problem Qualifiers (1) Constipation: Qualified Codes: K59.00 - Constipation, unspecified Mj Benitez MD Oct 05, 2016 11:54
[2016-10-05] MEDS ORDERED: SOD PHOSPHATE/SOD BIPHOSPHATE (ADULT) ENEMA 133ML PR ONE (13:00)
[2016-10-05 14:25] LABS: BICARBONATE 29.2 MEQ/L (21.0-32.0); POTASSIUM 3.3 MEQ/L (3.5-5.1)
[2016-10-05] MEDS: VANCOMYCIN INJ 1,750 MG in SODIUM CHLORID 0.9% 500 ML INJ 500 ML IV SCH (17:11)
[2016-10-05] MEDS: INSULIN DEGLUDEC 80 UNIT SQ SCH (21:00)
[2016-10-06 03:00] VITALS: BP 153/82; PULSE 90; RESP 19; TEMP 96.9; O2SAT 97
[2016-10-06] MEDS: SODIUM CHLOR 0.9% 1000 ML INJ 1,000 ML IV SCH ×2 (05:49→21:56)
[2016-10-06] MEDS: INSULIN ASPART SUPPLEMENTAL SCALE SQ SCH ×4 (05:54→22:12)
[2016-10-06 08:00] VITALS: BP 156/72; PULSE 85; RESP 17; TEMP 97.2; O2SAT 100
[2016-10-06 08:27] LABS: INTERNATIONAL NORMALIZED RATIO 1.4 RATIO; PROTHROMBIN TIME - PATIENT 15.6 SEC (9.8-11.6)
[2016-10-06] MEDS: SODIUM CHLORIDE 0.9% FLUSH 10 ML FLUSH IV FLUSH SCH ×2 (09:00→21:00)
[2016-10-06] MEDS: POTASSIUM CHLORIDE 20 MEQ CONTROLLED RELEASE TAB PO SCH ×2 (10:31→21:00)
[2016-10-06] MEDS: WARFARIN SOD 2.5 MG TAB PO SCH (10:31)
[2016-10-06] MEDS: PREGABALIN 25 MG CAP PO SCH (10:31)
[2016-10-06] MEDS: CARVEDILOL 12.5 MG TAB PO SCH (10:31)
[2016-10-06] MEDS: MAGNESIUM OXIDE 400 MG TAB PO SCH (10:32)
[2016-10-06] MEDS: TORSEMIDE 20 MG TAB PO SCH (10:32)
[2016-10-06] MEDS: ALUMINUM/MAGNESIUM/SIMETH 30 ML CUP PO PRN (10:32)
--- NOTE | 2016-10-06 11:12 | HHI.PR ---
Subjective Remarks Follow up abdominal pain/severe constipation/mild ileus/Hypokalemia 10/03/16-patient seen and examined; she had multiple Bowel movement since admission how she still feels like bloated and states there is still a blockage. Complains of generalized pain 10/04/16-patient seen and examined, states she is still back up and believes she still has stool causing her to have severe constipation despite the fact she is having bowel movement. Potassium 2.8 10/05/16-patient seen and examined, still complaining of feeling back up with stool, potassium 3.4. She was started yesterday empiric vancomycin 10/06/16-patient seen and examined, states she is feeling somehow better although she still has some abdominal spasm. Positive for BM. Patient is requesting if she can be discharged to [facility] Objective Vitals Vital Signs Date Time Temp Pulse Resp B/P (MAP) Pulse Ox O2 Delivery O2 Flow Rate FiO2 10/06/16 08:00 97.2 85 17 156/72 (100) 100 10/06/16 03:00 96.9 90 19 153/82 (105) 97 10/05/16 23:23 97.4 92 19 134/64 (87) 96 10/05/16 19:31 96.7 89 19 138/81 (100) 96 10/05/16 17:00 96.1 86 20 131/71 (91) 97 10/05/16 12:00 95.3 90 20 139/82 (101) 96 I/O 10/05/16 10/05/16 10/05/16 10/06/16 10/06/16 10/06/16 06:59 14:59 22:59 06:59 14:59 22:59 Intake Total 240 ml 0 ml 1080 ml 360 ml Balance 240 ml 0 ml 1080 ml 360 ml Intake Oral 240 ml 1080 ml 360 ml IV Total 0 ml # Voids 2 6 1 # Bowel Movements 0 1 2 Result Diagram: 10/05/16 0553 10/05/16 1309 Imaging Last Impressions Chest X-Ray 10/04/16 0000 Signed Impressions: Service Date/Time: Tuesday, October 04, 2016 15:56 - CONCLUSION: 1. No acute cardiopulmonary abnormality is identified. 2. Finding suggesting chronic rotator cuff tears bilaterally. Clif Barraza MD Abdomen X-Ray 10/03/16 0600 Signed Impressions: Service Date/Time: September 06:12 - CONCLUSION: 1. Mild ileus, stable. Marty Avila MD Objective Remarks GENERAL: NAD SKIN: Warm and dry. HEAD: Normocephalic. EYES: No scleral icterus. No injection or drainage. NECK: Supple, trachea midline. No JVD or lymphadenopathy. CARDIOVASCULAR: Regular rate and rhythm without murmurs, gallops, or rubs. RESPIRATORY: Breath sounds equal bilaterally. No accessory muscle use. GASTROINTESTINAL: obese, Abdomen soft, mildly tender, nondistended. +BS MUSCULOSKELETAL: No cyanosis, or edema. BACK: Nontender without obvious deformity. No CVA tenderness. Procedures none A/P Problem List: (1) Abdominal pain ICD Code: R10.9 - Unspecified abdominal pain (2) Constipation ICD Code: K59.00 - Constipation Status: Resolved (3) Hyponatremia ICD Code: E87.1 - Hypo-osmolality and hyponatremia Status: Acute (4) Hypokalemia ICD Code: E87.6 - Hypokalemia Status: Acute Assessment and Plan 76 yrs old female Mild Ileus Abdominal pain Constipation secondary to narcotics use Repeat Flat and upright with finding of still mild ileus Continue with conservative treatment with stool softener Hyponatremia Improving with normal saline and monitor electrolytes Hypokalemia improving Acute on chronic kidney disease stage III Improved with Gentle IV fluid hydration Monitor BUN and creatinine and avoid all nephrotoxic drugs Diabetes type 2 Continue outpatient medications and insulin sliding scale hemoglobin A1c 6.9 History of atrial fibrillation continue Coreg and warfarin, monitor INR/PT Leukocytosis Chest x-ray noted and unremarkable Blood culture NTD Continue empiric treatment with vancomycin Chronic sores/ulcers Wound care consult in a.m. Other chronic medical conditions continue outpatient medications PT consult to treat DVT prophylaxis: Coumadin Problem Qualifiers (1) Constipation: Qualified Codes: K59.00 - Constipation, unspecified Mj Benitez MD Oct 06, 2016 11:12
[2016-10-06 16:00] VITALS: BP 144/67; PULSE 86; RESP 17; TEMP 95.2; O2SAT 96
[2016-10-06] MEDS: VANCOMYCIN INJ 1,750 MG in SODIUM CHLORID 0.9% 500 ML INJ 500 ML IV SCH (17:48)
[2016-10-06 19:15] VITALS: BP 132/86; PULSE 86; RESP 19; TEMP 97.2; O2SAT 96
[2016-10-06 19:16] LABS: AUTOMATED NEUTROPHIL # 8.2 TH/MM3 (1.8-7.7); BASOPHIL # 0.1 TH/MM3 (0-0.2); BASOPHIL % 0.7 % (0.0-2.0); EOSINOPHIL # 0.2 TH/MM3 (0-0.4); HEMATOCRIT 42.5 % (35.0-46.0); HEMO FLAGS DIFF FINAL; MEAN CELL VOLUME 79.4 FL (80.0-100.0); MONO % 7.5 % (0.0-8.0); NEUT % 71.8 % (16.0-70.0); PLATELET COUNT 303 TH/MM3 (150-450); RED BLOOD COUNT 5.36 MIL/MM3 (4.00-5.30); RED CELL DISTRIBUTION WIDTH 15.7 % (11.6-17.2); WHITE BLOOD COUNT 11.4 TH/MM3 (4.0-11.0)
[2016-10-06 19:50] LABS: BICARBONATE 27.6 MEQ/L (21.0-32.0)
[2016-10-06 19:52] LABS: POTASSIUM 3.8 MEQ/L (3.5-5.1)
[2016-10-06] MEDS: INSULIN DEGLUDEC 80 UNIT SQ SCH (21:00)
[2016-10-06] MEDS: TEMAZEPAM 15 MG CAP PO PRN (22:03)
[2016-10-07 00:10] VITALS: BP 113/60; PULSE 91; RESP 20; TEMP 96.6; O2SAT 96
[2016-10-07 04:20] VITALS: BP 133/79; PULSE 85; RESP 18; TEMP 97; O2SAT 97
[2016-10-07] MEDS: INSULIN ASPART SUPPLEMENTAL SCALE SQ SCH ×2 (07:00→11:25)
[2016-10-07 07:50] VITALS: BP 135/83; PULSE 87; RESP 18; TEMP 97.5; O2SAT 99
[2016-10-07] MEDS: TORSEMIDE 20 MG TAB PO SCH (08:31)
[2016-10-07] MEDS: MAGNESIUM OXIDE 400 MG TAB PO SCH (08:31)
[2016-10-07] MEDS: PREGABALIN 25 MG CAP PO SCH (08:32)
[2016-10-07] MEDS: SODIUM CHLORIDE 0.9% FLUSH 10 ML FLUSH IV FLUSH SCH (08:32)
[2016-10-07] MEDS: WARFARIN SOD 2.5 MG TAB PO SCH (08:32)
[2016-10-07] MEDS: CARVEDILOL 12.5 MG TAB PO SCH (08:32)
[2016-10-07] MEDS: SODIUM CHLOR 0.9% 1000 ML INJ 1,000 ML IV SCH (08:34)
[2016-10-07] MEDS: POTASSIUM CHLORIDE 20 MEQ CONTROLLED RELEASE TAB PO SCH (08:34)
[2016-10-07 11:02] VITALS: BP 98/65; PULSE 90; RESP 18; TEMP 96.6; O2SAT 96
--- NOTE | 2016-10-07 11:41 | HHI.PR ---
Subjective Remarks Follow up abdominal pain/severe constipation/mild ileus/Hypokalemia 10/03/16-patient seen and examined; she had multiple Bowel movement since admission how she still feels like bloated and states there is still a blockage. Complains of generalized pain 10/04/16-patient seen and examined, states she is still back up and believes she still has stool causing her to have severe constipation despite the fact she is having bowel movement. Potassium 2.8 10/05/16-patient seen and examined, still complaining of feeling back up with stool, potassium 3.4. She was started yesterday empiric vancomycin 10/06/16-patient seen and examined, states she is feeling somehow better although she still has some abdominal spasm. Positive for BM. Patient is requesting if she can be discharged to [facility] 10/07/16-patient seen and examined, reports some abdominal spasm or why stable. Discussed with senior case manager regarding discharge disposition. Objective Vitals Vital Signs Date Time Temp Pulse Resp B/P (MAP) Pulse Ox O2 Delivery O2 Flow Rate FiO2 10/07/16 11:02 96.6 90 18 98/65 (76) 96 10/07/16 07:50 97.5 87 18 135/83 (100) 99 10/07/16 04:20 97.0 85 18 133/79 (97) 97 10/07/16 00:10 96.6 91 20 113/60 (77) 96 10/06/16 19:15 97.2 86 19 132/86 (101) 96 10/06/16 16:00 95.2 86 17 144/67 (92) 96 I/O 10/06/16 10/06/16 10/06/16 10/07/16 10/07/16 10/07/16 07:00 15:00 23:00 07:00 15:00 23:00 Intake Total 360 ml 2080 ml 480 ml Balance 360 ml 2080 ml 480 ml Intake Oral 360 ml 1200 ml 480 ml IV Total 880 ml # Voids 1 7 4 # Bowel Movements 2 1 0 Result Diagram: 10/06/16 1835 10/07/16 0645 Imaging Last Impressions Chest X-Ray 10/04/16 0000 Signed Impressions: Service Date/Time: Tuesday, October 04, 2016 15:56 - CONCLUSION: 1. No acute cardiopulmonary abnormality is identified. 2. Finding suggesting chronic rotator cuff tears bilaterally. Clif Barraza MD Abdomen X-Ray 10/03/16 0600 Signed Impressions: Service Date/Time: September 06:12 - CONCLUSION: 1. Mild ileus, stable. Marty Avila MD Objective Remarks GENERAL: NAD SKIN: Warm and dry. HEAD: Normocephalic. EYES: No scleral icterus. No injection or drainage. NECK: Supple, trachea midline. No JVD or lymphadenopathy. CARDIOVASCULAR: Regular rate and rhythm without murmurs, gallops, or rubs. RESPIRATORY: Breath sounds equal bilaterally. No accessory muscle use. GASTROINTESTINAL: obese, Abdomen soft, mildly tender, nondistended. +BS MUSCULOSKELETAL: No cyanosis, or edema. BACK: Nontender without obvious deformity. No CVA tenderness. Procedures none A/P Problem List: (1) Abdominal pain ICD Code: R10.9 - Unspecified abdominal pain (2) Constipation ICD Code: K59.00 - Constipation Status: Resolved (3) Hyponatremia ICD Code: E87.1 - Hypo-osmolality and hyponatremia Status: Acute (4) Hypokalemia ICD Code: E87.6 - Hypokalemia Status: Acute Assessment and Plan 76 yrs old female Mild Ileus Abdominal pain Constipation secondary to narcotics use Repeat Flat and upright with finding of still mild ileus Continue with conservative treatment with stool softener Hyponatremia Improving with normal saline and monitor electrolytes Hypokalemia Resolved Acute on chronic kidney disease stage III Improved with Gentle IV fluid hydration Monitor BUN and creatinine and avoid all nephrotoxic drugs Diabetes type 2 Continue outpatient medications and insulin sliding scale hemoglobin A1c 6.9 History of atrial fibrillation continue Coreg and warfarin, monitor INR/PT Leukocytosis-improving Chest x-ray noted and unremarkable Blood culture NTD Discontinue empiric treatment with vancomycin Chronic sores/ulcers Wound care consult in a.m. Other chronic medical conditions continue outpatient medications PT to treat DVT prophylaxis: Coumadin Problem Qualifiers (1) Constipation: Qualified Codes: K59.00 - Constipation, unspecified Mj Benitez MD Oct 07, 2016 11:41
--- NOTE | 2016-10-07 13:11 | HHI.DS ---
Discharge Summary Admission Date Oct 04, 2016 at 15:50 Discharge Date: Oct 07, 2016 Admitting Diagnosis constipation, hyponatremia, hypokalemia (1) Abdominal pain ICD Code: R10.9 - Unspecified abdominal pain (2) Constipation ICD Code: K59.00 - Constipation Status: Resolved (3) Hyponatremia ICD Code: E87.1 - Hypo-osmolality and hyponatremia Status: Acute (4) Hypokalemia ICD Code: E87.6 - Hypokalemia Status: Acute Procedures none Brief History - From Admission 76-year-old female with a history of diabetes type 2, CHF, atrial fibrillation came to the ED for evaluation of severe abdominal pain due to constipation 10 days despite taking Miralax and Dulcolax. Patient has a history of neuropathy for which she is on chronic narcotics as well as medicinal marijuana. Although patient had one episode of exposed diarrhea this morning, she stated however when she went to sit on the toilet bowl she could not go. She reported decreased appetite and decreased by mouth intake for the past 2 days. Patient was found to have abnormal sodium and potassium. She denies any chest pain or shortness of breath, although she complains of chronic upper and lowers extremities neuropathy CBC/BMP: 10/06/16 1835 10/07/16 0645 Significant Findings Laboratory Tests Test 10/05/16 05:53 10/05/16 13:09 10/06/16 07:05 10/06/16 18:18 White Blood Count 16.0 TH/MM3 (4.0-11.0) Red Blood Count 5.72 MIL/MM3 (4.00-5.30) Mean Corpuscular Volume 78.9 FL (80.0-100.0) Mean Corpuscular Hemoglobin 25.8 PG (27.0-34.0) Neutrophils (%) (Auto) 77.1 % (16.0-70.0) Neutrophils # (Auto) 12.4 TH/MM3 (1.8-7.7) Monocytes # (Auto) 1.2 TH/MM3 (0-0.9) Prothrombin Time 15.0 SEC (9.8-11.6) 15.6 SEC (9.8-11.6) Blood Urea Nitrogen 26 MG/DL (7-18) 27 MG/DL (7-18) 20 MG/DL (7-18) Random Glucose 161 MG/DL (74-106) 152 MG/DL (74-106) 187 MG/DL (74-106) Sodium Level 131 MEQ/L (136-145) 132 MEQ/L (136-145) 132 MEQ/L (136-145) Potassium Level 3.4 MEQ/L (3.5-5.1) 3.3 MEQ/L (3.5-5.1) Chloride Level 94 MEQ/L (98-107) 94 MEQ/L (98-107) 94 MEQ/L (98-107) Estimat Glomerular Filtration Rate 64 ML/MIN (>89) 63 ML/MIN (>89) 62 ML/MIN (>89) Test 10/06/16 18:35 10/07/16 06:45 White Blood Count 11.4 TH/MM3 (4.0-11.0) Red Blood Count 5.36 MIL/MM3 (4.00-5.30) Mean Corpuscular Volume 79.4 FL (80.0-100.0) Neutrophils (%) (Auto) 71.8 % (16.0-70.0) Neutrophils # (Auto) 8.2 TH/MM3 (1.8-7.7) Estimat Glomerular Filtration Rate 66 ML/MIN (>89) Imaging Last Impressions Chest X-Ray 10/04/16 0000 Signed Impressions: Service Date/Time: Tuesday, October 04, 2016 15:56 - CONCLUSION: 1. No acute cardiopulmonary abnormality is identified. 2. Finding suggesting chronic rotator cuff tears bilaterally. Clif Barraza MD Abdomen X-Ray 10/03/16 0600 Signed Impressions: Service Date/Time: September 06:12 - CONCLUSION: 1. Mild ileus, stable. Marty Avila MD PE at Discharge GENERAL: NAD SKIN: Warm and dry. HEAD: Normocephalic. EYES: No scleral icterus. No injection or drainage. NECK: Supple, trachea midline. No JVD or lymphadenopathy. CARDIOVASCULAR: Regular rate and rhythm without murmurs, gallops, or rubs. RESPIRATORY: Breath sounds equal bilaterally. No accessory muscle use. GASTROINTESTINAL: obese, Abdomen soft, mildly tender, nondistended. +BS MUSCULOSKELETAL: No cyanosis, or edema. BACK: Nontender without obvious deformity. No CVA tenderness. Hospital Course Ascencio admitted with abdominal pain, use and multiple electrolyte abnormalities which were corrected accordingly. He was managed conservatively for her ileus with initially nothing by mouth along with IV fluid hydration. Diet was advanced accordingly. Patient was continued on her treatment for diabetes and other medical conditions. DVT and GI prophylaxis were provided. She was started on prophylactic empiric Antibiotics for leukocytosis however cultures remained negative prior to discharge. Physical therapy was consulted. Pt Condition on Discharge: Stable Discharge Disposition: Rehab Inpatient Discharge Time: > 30 minutes Discharge Instructions DIET: Follow Instructions for: Diabetic Diet Activities you can perform: Regular-No Restrictions Follow up Referrals: PCP Follow-up - 2-3 Days Continued Medications: Carvedilol (Carvedilol) 12.5 Mg Tab 12.5 MG PO DAILY, #60 TAB 0 Refills Cholecalciferol (Vitamin D-1000) 1,000 Unit Tab 4000 UNITS PO DAILY for Nutritional Supplement, #1 BOTTLE 0 Refills Docusate Sodium (Stool Softener) 100 Mg Cap 100 MG PO DAILY Garcinia Cambogia-Chromium (Garcinia Cambogia 500-200 mg-Mcg) 1 Tab Tab 3 TAB PO BID Insulin Aspart Inj (Novolog Inj) 1,000 Unit/10 Ml Vial 0 SQ DIRECTED for Blood Sugar Management, #10 ML 0 Refills Sliding Scale as directed. Insulin Degludec Inj (Tresiba Flextouch Pen Inj) 300 unit/3 ML Pen 80 UNITS SQ HS for Blood Sugar Management, #15 ML 0 Refills Magnesium Oxide (Magnesium Oxide) 400 Mg Tab 400 MG PO DAILY Metolazone (Metolazone) 5 Mg Tab 5 MG PO DAILY, #30 TAB 0 Refills Oxycodone-Acetaminophen (Oxycodone-Acetaminophen) 10-325 mg Tab 1 TAB PO Q6H PRN for PAIN, TAB 0 Refills Potassium Bicarbonate Effervescent (Klor-Con EF) 25 Meq Tab 50 MEQ PO DAILY for Electrolyte Replacement, #60 TAB 0 Refills Pregabalin (Lyrica) 50 Mg Cap 50 MG PO DAILY, #30 CAP 0 Refills Torsemide (Torsemide) 20 Mg Tab 20 MG PO DAILY, #30 TAB 0 Refills Warfarin (Warfarin) 2.5 Mg Tab 2.5 MG PO DAILY for Blood Clot Prevention, #30 TAB 0 Refills Mj Benitez MD Oct 07, 2016 13:11
[2016-10-07] MEDS ORDERED: PHARMACY ORDERED LAB ONE (16:45)
[2016-10-23] MEDS ORDERED: TORS20TA PO (08:17)
[2016-10-23] MEDS ORDERED: MAGN400T PO (08:17)
[2016-10-23] MEDS ORDERED: VITA1000 PO (08:17)
[2016-10-23] MEDS ORDERED: KLOR25TA2 PO (08:17)
[2016-10-23] MEDS ORDERED: PREG25 PO (08:18)
[2016-10-23] MEDS ORDERED: CARV6.25 PO (08:18)
[2016-10-23] MEDS ORDERED: REST15CA PO (08:18)
[2016-10-23] MEDS ORDERED: SODI1TAB PO (08:18)
[2016-10-23] MEDS ORDERED: DICY20TA10 PO (08:18)
[2016-10-23] MEDS ORDERED: LEVEMIR SQ ×2 (08:18)
[2016-10-23] MEDS ORDERED: ROPI.25 PO (08:18)
[2016-10-23] MEDS ORDERED: COUM1TAB PO (08:18)
[2016-10-23] MEDS ORDERED: ACET1TAB86 PO (08:18)
[2016-10-23] MEDS ORDERED: SPIR25 PO (08:18)
== END 2016-10-07 14:52 | DRG 392 ==
LOC: NEPC 12:27 → NEDA 15:10 → NEPHCDU 16:22 → OBSVTOIN 10-04 15:50 → N06B 10-04 18:28
PROVIDERS: ADMIT Hospitalist; ATTEND Hospitalist
DX: K59.03 Drug induced constipation (principal); K56.7 Ileus, unspecified; E11.22 Type 2 diabetes mellitus with diabetic chronic kidney disease; I50.30 Unspecified diastolic (congestive) heart failure; E87.1 Hypo-osmolality and hyponatremia; I48.91 Unspecified atrial fibrillation; G62.9 Polyneuropathy, unspecified; L97.919 Non-pressure chronic ulcer of unspecified part of right lower leg with unspecified severity; I12.9 Hypertensive chronic kidney disease with stage 1 through stage 4 chronic kidney disease, or unspecified chronic kidney disease; Z68.41 Body mass index [BMI] 40.0-44.9, adult; E66.01 Morbid (severe) obesity due to excess calories; N18.3 Chronic kidney disease, stage 3 (moderate); N28.9 Disorder of kidney and ureter, unspecified; E87.6 Hypokalemia; T40.605A Adverse effect of unspecified narcotics, initial encounter; Z79.891 Long term (current) use of opiate analgesic; Z98.84 Bariatric surgery status; G47.33 Obstructive sleep apnea (adult) (pediatric); Z85.41 Personal history of malignant neoplasm of cervix uteri; Z96.653 Presence of artificial knee joint, bilateral; F12.90 Cannabis use, unspecified, uncomplicated; Z79.01 Long term (current) use of anticoagulants; Z79.4 Long term (current) use of insulin
CPT/HCPCS: 71010; 74020; 76937; 80048; 80053; 82565; 82948; 83036; 85025; 85610; 87040; 96360; 96361; 96372; G0378; J1815; J2405; J3370; J3480; J7030; J7040

== ENCOUNTER 2017-01-26 17:24 | Inpatient (IN) | payer MEDICARE, BC ==
[~2017-01-26] VITALS: Ht 172.7 cm; Wt 140.0 kg
[~2017-01-26 17:24] MED LIST changes: +ACET325T15 PO; -AUGM875T PO; -BACT800T5 PO; +CARV12.52 PO; +COUM1TAB PO; +DICY20TA10 PO; -DILT31TA PO; +DOCU1CAP66 PO; -EFFE25TA PO; +INSU1INJ14 SQ; +KLOR25TA2 PO; -METO2.5T7 PO; -MIRA33502 PO; +NOVOLOGP2 SQ; -NOVOLOGSS SQ; -PERC7.5T13 PO; +PREG25 PO; -PROBCAP4 PO; +REST15CA PO; -ROBA500T PO; +ROPI.25 PO; +SODI1TAB PO; +SPIR25 PO; -SPIR25TA PO; -STOO100T PO; -TORS1TAB12 PO; +TORS20TA PO; +VITA1000 PO; -WARF5TAB PO
[2017-01-26 17:34] VITALS: BP 128/75; PULSE 95; RESP 20; TEMP 97.8; O2SAT 100
[2017-01-26] MEDS ORDERED: SODIUM CHLORIDE 0.9% FLUSH 10 ML FLUSH IV FLUSH PRN ×2 (17:45→20:30)
--- NOTE | 2017-01-26 17:55 | PD ---
HPI Chief Complaint: General Weakness Time Seen by Provider: 17:46 Travel History International Travel<30 days: No Contact w/Intl Traveler<30days: No Traveled to known affect area: No History of Present Illness HPI Patient is a 76-year-old female presenting to emergency department for evaluation of generalized weakness. Patient states that since she has gotten progressively more weak. She states that today she stood up including get her legs to move, she subsequently fell back into her chair/recliner and then slid to the floor. She denies any head injury or loss of consciousness. She states that she just felt weak. She denies abdominal pain, chest pain, fever or chills, nausea, vomiting she has a history of urinary tract infections which she reports which were asymptomatic in the past. Patient's past medical history significant for hypertension, chronic constipation, type 2 diabetes, peripheral neuropathy. PFSH Past Medical History Hx Anticoagulant Therapy: Yes (WARFARIN ) Arthritis: Yes Atrial Fibrillation: Yes Heart Rhythm Problems: Yes Cancer: Yes (Cervical CA 99) Cardiovascular Problems: Yes High Cholesterol: Yes Chest Pain: Yes Congestive Heart Failure: Yes COPD: Yes Diabetes: Yes (TYPE 2 INSULIN DEPENDENT) Endocrine: Yes Gastrointestinal Disorders: Yes Genitourinary: Yes Hypertension: Yes Musculoskeletal: Yes Neurologic: Yes (peripheral neuropathy) Renal Failure: Yes Sleep Apnea: Yes (CPAP ) Menopausal: Yes Tubal Ligation: Yes Past Surgical History Abdominal Surgery: Yes (LAP BAND MAR 20, GALL BLADDER (67)) Body Medical Devices: ARTIFICAL KNEES BILATERALLY, LAPBAND Cholecystectomy: Yes Gynecologic Surgery: Yes (HYST AND TUBAL LIGATION, CA CERVIX) Hysterectomy: Yes Joint Replacement: Yes (BILAT KNEE 2007) Tonsillectomy: Yes Social History Alcohol Use: No Tobacco Use: No (10 PACK YEARS) Substance Use: Yes (marijuana every once in a while) Allergies-Medications (Allergen,Severity, Reaction): Coded Allergies: *MDRO Multi-Drug Resistant Organism (Verified Adverse Reaction, Unknown, 01/26/17) MRSA leg wound 10/2014, 11/2014, 02/2015 Reported Meds & Prescriptions Reported Meds & Active Scripts Active Levemir Inj (Insulin Detemir) 1,000 unit/ 10 ML Vial 35 Units SQ DAILY 30 Days Do not mix with any other Insulin. Requip (Ropinirole HCl) 0.25 Mg Tab 0.25 Mg PO HS Lyrica (Pregabalin) 25 Mg Cap 50 Mg PO TID Eq Acetaminophen (Acetaminophen) 325 Mg Tab 650 Mg PO Q4H PRN 30 Days Coreg (Carvedilol) 6.25 Mg Tab 6.25 Mg PO DAILY Klor-Con EF (Potassium Bicarbonate) 25 Meq Tab 50 Meq PO DAILY Torsemide 20 Mg Tab 20 Mg PO DAILY Reported Warfarin 2.5 Mg Tab 2.5 Mg PO DAILY Linzess (Linaclotide) 290 Mcg Cap 290 Mcg PO DAILY Lyrica (Pregabalin) 100 Mg Cap 100 Mg PO BID Tresiba Flextouch Pen Inj (Insulin Degludec Inj) 300 unit/3 ML Pen 80 Units SQ HS Review of Systems Except as stated in HPI: all other systems reviewed are Neg HENT: No: Headaches, Lightheadedness Cardiovascular: No: Chest Pain or Discomfort Respiratory: No: Shortness of Breath Gastrointestinal: No: Nausea, Vomiting, Abdominal Pain Neurologic: Positive: Weakness, No: Focal Abnormalities, Change in Mentation, Sensory Disturbance Physical Exam Narrative GENERAL: Obese, well-developed, alert elderly female. Resting comfortably in no acute distress. SKIN: Warm and dry. HEAD: Atraumatic. Normocephalic. EYES: Pupils equal and round. No scleral icterus. No injection or drainage. ENT: No nasal bleeding or discharge. Mucous membranes pink and moist. NECK: Trachea midline. No JVD. CARDIOVASCULAR: Tachycardic, 2/6 systolic murmur RESPIRATORY: No accessory muscle use. Clear to auscultation. Breath sounds equal bilaterally. GASTROINTESTINAL: Abdomen soft, non-tender, nondistended. Hepatic and splenic margins not palpable. Positive bowel sounds, no rebound, no guarding MUSCULOSKELETAL: Extremities without clubbing, cyanosis, or edema. No obvious deformities. NEUROLOGICAL: Awake and alert. No obvious cranial nerve deficits. Motor grossly within normal limits. Five out of 5 muscle strength in the arms and legs. Normal speech. PSYCHIATRIC: Appropriate mood and affect; insight and judgment normal. Data Data Last Documented VS Vital Signs Date Time Temp Pulse Resp B/P (MAP) Pulse Ox O2 Delivery O2 Flow Rate FiO2 01/26/17 17:34 97.8 95 20 128/75 (92) 100 Orders Orders Electrocardiogram (01/26/17 17:44) Complete Blood Count With Diff (01/26/17 17:44) Comprehensive Metabolic Panel (01/26/17 17:44) Thyroid Stimulating Hormone (01/26/17 17:44) Urinalysis - C+S If Indicated (01/26/17 17:44) Chest, Single Ap (01/26/17 17:44) Blood Glucose (01/26/17 17:44) Ecg Monitoring (01/26/17 17:44) Iv Access Insert/Monitor (01/26/17 17:44) Oximetry (01/26/17 17:44) Sodium Chloride 0.9% Flush (Ns Flush) (01/26/17 17:45) B-Type Natriuretic Peptide (01/26/17 17:44) Act Partial Throm Time (Ptt) (01/26/17 17:53) Prothrombin Time / Inr (Pt) (01/26/17 17:53) Cath For Specimen (01/26/17 18:47) Urine Culture (01/26/17 18:45) Admit Order (Ed Use Only) (01/26/17 20:15) Labs Laboratory Tests Test 01/26/17 18:10 01/26/17 18:45 White Blood Count 9.2 TH/MM3 Red Blood Count 4.27 MIL/MM3 Hemoglobin 11.9 GM/DL Hematocrit 36.0 % Mean Corpuscular Volume 84.3 FL Mean Corpuscular Hemoglobin 27.8 PG Mean Corpuscular Hemoglobin Concent 33.0 % Red Cell Distribution Width 15.3 % Platelet Count 220 TH/MM3 Mean Platelet Volume 9.4 FL Neutrophils (%) (Auto) 76.8 % Lymphocytes (%) (Auto) 12.6 % Monocytes (%) (Auto) 7.7 % Eosinophils (%) (Auto) 2.0 % Basophils (%) (Auto) 0.9 % Neutrophils # (Auto) 7.0 TH/MM3 Lymphocytes # (Auto) 1.2 TH/MM3 Monocytes # (Auto) 0.7 TH/MM3 Eosinophils # (Auto) 0.2 TH/MM3 Basophils # (Auto) 0.1 TH/MM3 CBC Comment DIFF FINAL Differential Comment Prothrombin Time 26.2 SEC Prothromb Time International Ratio 2.6 RATIO Activated Partial Thromboplast Time 38.3 SEC Blood Urea Nitrogen 25 MG/DL Creatinine 1.39 MG/DL Random Glucose 70 MG/DL Total Protein 8.6 GM/DL Albumin 3.3 GM/DL Calcium Level 9.4 MG/DL Alkaline Phosphatase 67 U/L Aspartate Amino Transf (AST/SGOT) 18 U/L Alanine Aminotransferase (ALT/SGPT) 15 U/L Total Bilirubin 0.8 MG/DL Sodium Level 139 MEQ/L Potassium Level 3.7 MEQ/L Chloride Level 107 MEQ/L Carbon Dioxide Level 26.8 MEQ/L Anion Gap 5 MEQ/L Estimat Glomerular Filtration Rate 37 ML/MIN B-Type Natriuretic Peptide 42 PG/ML Thyroid Stimulating Hormone 3rd Gen 1.820 uIU/ML Urine Color YELLOW Urine Turbidity CLEAR Urine pH 5.5 Urine Specific [place] 1.010 Urine Protein TRACE mg/dL Urine Glucose (UA) NEG mg/dL Urine Ketones NEG mg/dL Urine Occult Blood SMALL Urine Nitrite NEG Urine Bilirubin NEG Urine Urobilinogen LESS THAN 2.0 MG/DL Urine Leukocyte Esterase NEG Urine RBC 1 /hpf Urine WBC 1 /hpf Urine Squamous Epithelial Cells <1 /hpf Urine Bacteria MANY /hpf Urine Hyaline Casts 3 /lpf Urine Mucus FEW /lpf Microscopic Urinalysis Comment CATH-CULTURE IND MDM Medical Decision Making Medical Screen Exam Complete: Yes Emergency Medical Condition: Yes Interpretation(s) Last Impressions Chest X-Ray 01/26/17 [id number] Signed Impressions: Service Date/Time: Thursday, January 26, 2017 17:56 - CONCLUSION: Normal examination. The right humeral head is elevated suggesting a right-sided rotator cuff tear Charles Mortensen MD Laboratory Tests Test 01/26/17 18:10 01/26/17 18:45 White Blood Count 9.2 TH/MM3 Red Blood Count 4.27 MIL/MM3 Hemoglobin 11.9 GM/DL Hematocrit 36.0 % Mean Corpuscular Volume 84.3 FL Mean Corpuscular Hemoglobin 27.8 PG Mean Corpuscular Hemoglobin Concent 33.0 % Red Cell Distribution Width 15.3 % Platelet Count 220 TH/MM3 Mean Platelet Volume 9.4 FL Neutrophils (%) (Auto) 76.8 % Lymphocytes (%) (Auto) 12.6 % Monocytes (%) (Auto) 7.7 % Eosinophils (%) (Auto) 2.0 % Basophils (%) (Auto) 0.9 % Neutrophils # (Auto) 7.0 TH/MM3 Lymphocytes # (Auto) 1.2 TH/MM3 Monocytes # (Auto) 0.7 TH/MM3 Eosinophils # (Auto) 0.2 TH/MM3 Basophils # (Auto) 0.1 TH/MM3 CBC Comment DIFF FINAL Differential Comment Prothrombin Time 26.2 SEC Prothromb Time International Ratio 2.6 RATIO Activated Partial Thromboplast Time 38.3 SEC Blood Urea Nitrogen 25 MG/DL Creatinine 1.39 MG/DL Random Glucose 70 MG/DL Total Protein 8.6 GM/DL Albumin 3.3 GM/DL Calcium Level 9.4 MG/DL Alkaline Phosphatase 67 U/L Aspartate Amino Transf (AST/SGOT) 18 U/L Alanine Aminotransferase (ALT/SGPT) 15 U/L Total Bilirubin 0.8 MG/DL Sodium Level 139 MEQ/L Potassium Level 3.7 MEQ/L Chloride Level 107 MEQ/L Carbon Dioxide Level 26.8 MEQ/L Anion Gap 5 MEQ/L Estimat Glomerular Filtration Rate 37 ML/MIN B-Type Natriuretic Peptide 42 PG/ML Thyroid Stimulating Hormone 3rd Gen 1.820 uIU/ML Urine Color YELLOW Urine Turbidity CLEAR Urine pH 5.5 Urine Specific [place] 1.010 Urine Protein TRACE mg/dL Urine Glucose (UA) NEG mg/dL Urine Ketones NEG mg/dL Urine Occult Blood SMALL Urine Nitrite NEG Urine Bilirubin NEG Urine Urobilinogen LESS THAN 2.0 MG/DL Urine Leukocyte Esterase NEG Urine RBC 1 /hpf Urine WBC 1 /hpf Urine Squamous Epithelial Cells <1 /hpf Urine Bacteria MANY /hpf Urine Hyaline Casts 3 /lpf Urine Mucus FEW /lpf Microscopic Urinalysis Comment CATH-CULTURE IND Vital Signs Date Time Temp Pulse Resp B/P (MAP) Pulse Ox O2 Delivery O2 Flow Rate FiO2 01/26/17 17:34 97.8 95 20 128/75 (92) 100 Vital Signs Date Time Temp Pulse Resp B/P (MAP) Pulse Ox O2 Delivery O2 Flow Rate FiO2 01/26/17 17:34 97.8 95 20 128/75 (92) 100 Differential Diagnosis UTI versus hypoglycemia versus deconditioning versus metabolic abnormality versus other Narrative Course Patient is a 76-year-old female presenting from home due to generalized weakness. Patient's vital signs are stable, she is afebrile. Labs and imaging ordered and pending. Initial EKG showed atrial fibrillation with a ventricular rate of 86. Patient has a history of the same. This was reviewed by my attending physician. CBC is unremarkable Chemistry BUN and creatinine 25/1.39, slightly elevated when compared to prior. TSH is normal Urinalysis small occult blood, many bacteria, few mucus, reflex culture pending. Chest x-ray shows normal examination, the right humeral head is elevated suggesting a right-sided rotator cuff tear. BNP is pending We'll attempt to ambulate patient, patient is unable to ambulate she will be admitted for observation due to generalized weakness. Weakness may be secondary to hypoglycemia as the patient's blood sugar on arrival was 67. Patient was unable to get out of bed in the emergency department. She was unable to ambulate stating she was too weak and was afraid she is going to fall. [facility] paged for admission. Dr. Hall accepted admit, orders placed. Pt agreeable to stay. Diagnosis Primary Impression: Weakness generalized Additional Impressions: Impaired mobility and activities of daily living Morbid obesity Admitting Information Admitting Physician Requests: Observation Condition: Stable Nadege Rivera Jan 26, 2017 17:55
--- NOTE | 2017-01-26 18:05 | RADRPT ---
EXAM DATE/TIME: 01/26/2017 17:56 [facility] COMPARISON: No previous studies available for comparison. INDICATIONS : Syncope MEDICAL HISTORY : Congestive heart failure. Diabetes mellitus type II. SURGICAL HISTORY : None. ENCOUNTER: Initial ACUITY: 1 week PAIN SCORE: 0/10 LOCATION: chest FINDINGS: A single view of the chest demonstrates the lungs to be symmetrically aerated without evidence of mas s, infiltrate or effusion. The cardiomediastinal contours are unremarkable. Osseous structures are intact. CONCLUSION: Normal examination. The right humeral head is elevated suggesting a right-sided rotator cuff tear Charles Mortensen MD on January 26, 2017 at 18:02 Board Certified Radiologist. This report was verified electronically.
[2017-01-26] MEDS ORDERED: LYRI100C PO (18:25)
[2017-01-26] MEDS ORDERED: WARF-18 PO (18:25)
[2017-01-26] MEDS ORDERED: LINA290C PO (18:25)
[2017-01-26 18:35] LABS: BASOPHIL # 0.1 TH/MM3 (0-0.2); BASOPHIL % 0.9 % (0.0-2.0); EOSINOPHIL # 0.2 TH/MM3 (0-0.4); HEMO FLAGS DIFF FINAL; LYMPH % 12.6 % (9.0-44.0); LYMPHOCYTE # 1.2 TH/MM3 (1.0-4.8); MEAN CELL VOLUME 84.3 FL (80.0-100.0); MEAN CORPUSCULAR HEMOGLOBIN 27.8 PG (27.0-34.0); MONO % 7.7 % (0.0-8.0); NEUT % 76.8 % (16.0-70.0); PLATELET COUNT 220 TH/MM3 (150-450); RED BLOOD COUNT 4.27 MIL/MM3 (4.00-5.30); RED CELL DISTRIBUTION WIDTH 15.3 % (11.6-17.2); WHITE BLOOD COUNT 9.2 TH/MM3 (4.0-11.0)
[2017-01-26 18:42] LABS: APTT (PATIENT) 38.3 SEC (24.3-30.1); INTERNATIONAL NORMALIZED RATIO 2.6 RATIO; PROTHROMBIN TIME - PATIENT 26.2 SEC (9.8-11.6)
[2017-01-26 18:52] LABS: ALKALINE PHOSPHATASE 67 U/L (45-117); TOTAL BILIRUBIN ADULT 0.8 MG/DL (0.2-1.0)
[2017-01-26 18:54] LABS: ALT (GPT) 15 U/L (10-53); ANION GAP 5 MEQ/L (5-15); AST (GOT) 18 U/L (15-37); BICARBONATE 26.8 MEQ/L (21.0-32.0); BLOOD UREA NITROGEN 25 MG/DL (7-18); CHLORIDE 107 MEQ/L (98-107); GLOMERULAR FILTRATION RATE 37 ML/MIN (>89); POTASSIUM 3.7 MEQ/L (3.5-5.1); SODIUM (NA) 139 MEQ/L (136-145)
[2017-01-26 19:05] LABS: BACTERIA, URINE MANY /hpf; BLOOD, URINE SMALL (NEG); COMMENT (UR) CATH-CULTURE IND; CULTURE IF INDICATED CATH CULTURE IND; GLUCOSE,URINE NEG (NEG); HYALINE CAST, URINE 3 /lpf (RARE); KETONE, URINE NEG (NEG); MUCUS URINE FEW /lpf (OCC); NITRITE,URINE NEG (NEG); PH, URINE 5.5 (5.0-8.5); SQUAMOUS EPITHELIAL CELL URINE <1 /hpf (0-5); URINE COLOR YELLOW (YELLW/STRAW)
--- NOTE | 2017-01-26 20:21 | HHI.HP ---
HPI Service [facility] Primary Care Physician No Primary Care Physician Admission Diagnosis GENERALIZED WEANKESS Diagnoses: (1) Generalized weakness Diagnosis: Principal (2) Gait instability Diagnosis: Principal (3) Bacteriuria Diagnosis: Principal (4) JORJE (acute kidney injury) Diagnosis: Principal (5) A-fib Diagnosis: Principal (6) DM (diabetes mellitus) Diagnosis: Principal Travel History International Travel<30 Days: No Contact w/Intl Traveler <30 Da: No Traveled to Known Affected Are: No History of Present Illness This is a 76-year-old female with a PMH of HTN, Cervical CA, Hyperlipidemia, COPD, CHF (Echo 03/12/15 w/ EF 50-55%), Peripheral Neuropathy, Sleep Apnea and DM who presented to the ER with complaints of generalized weakness x4 days. States symptoms progressively worse today, unable to ambulate due to weakness. Denies fever, chills, chest pain, cough or sick contacts. On arrival, BP 128/75 , HR 95, O2 sat 100% on RA, Afebrile. CBC unremarkable except for mildly elevated neutrophil count. Creatinine 1.39, previously 1.17 on 10/17/16. UA with significant bacteriuria. CXR normal, possible right-sided rotator cuff tear. Attempted ambulation while in ER, however pt unable to ambulate without assistance due to weakness. Review of Systems Except as stated in HPI: all other systems reviewed are Neg ROS: 14 point review of systems otherwise negative. Past Family Social History Past Medical History PMH: HTN, Cervical CA, Hyperlipidemia, COPD, CHF (Echo 03/12/15 w/ EF 50-55%), Peripheral Neuropathy, Sleep Apnea and DM Past Surgical History PAST SURGICAL HISTORY: Lap Band, Cholecystectomy, Bilateral Knee Replacement, Hysterectomy, Tonsillectomy Allergies: Coded Allergies: *MDRO Multi-Drug Resistant Organism (Verified Adverse Reaction, Unknown, 01/26/17) MRSA leg wound 10/2014, 11/2014, 02/2015 Family History PAST FAMILY HISTORY: Reviewed. No h/o DM or CAD Social History PAST SOCIAL HISTORY: Negative for alcohol or tobacco. Occasional Marijuana Physical Exam Vital Signs Vital Signs Date Time Temp Pulse Resp B/P (MAP) Pulse Ox O2 Delivery O2 Flow Rate FiO2 01/26/17 17:34 97.8 95 20 128/75 (92) 100 Physical Exam PE: GENERAL: Elderly white obese female in no acute distress. HEENT: PERRLA, EOMI. No scleral icterus or conjunctival pallor. No lid lag or facial droop. CARDIOVASCULAR: Regular rate and rhythm. No obvious murmurs to auscultation. No chest tenderness to palpation. RESPIRATORY: No obvious rhonchi or wheezing. Clear to auscultation. Breath sounds equal bilaterally. GASTROINTESTINAL: Abdomen soft, non-tender, nondistended. BS normal. MUSCULOSKELETAL: Extremities without clubbing, cyanosis, or edema. No obvious deformities. NEUROLOGICAL: Awake, alert and oriented x4. No focal neurologic deficits. Moving both upper and lower extremities spontaneously. Laboratory Laboratory Tests Test 01/26/17 18:10 01/26/17 18:45 White Blood Count 9.2 Red Blood Count 4.27 Hemoglobin 11.9 Hematocrit 36.0 Mean Corpuscular Volume 84.3 Mean Corpuscular Hemoglobin 27.8 Mean Corpuscular Hemoglobin Concent 33.0 Red Cell Distribution Width 15.3 Platelet Count 220 Mean Platelet Volume 9.4 Neutrophils (%) (Auto) 76.8 Lymphocytes (%) (Auto) 12.6 Monocytes (%) (Auto) 7.7 Eosinophils (%) (Auto) 2.0 Basophils (%) (Auto) 0.9 Neutrophils # (Auto) 7.0 Lymphocytes # (Auto) 1.2 Monocytes # (Auto) 0.7 Eosinophils # (Auto) 0.2 Basophils # (Auto) 0.1 CBC Comment DIFF FINAL Differential Comment Prothrombin Time 26.2 Prothromb Time International Ratio 2.6 Activated Partial Thromboplast Time 38.3 Blood Urea Nitrogen 25 Creatinine 1.39 Random Glucose 70 Total Protein 8.6 Albumin 3.3 Calcium Level 9.4 Alkaline Phosphatase 67 Aspartate Amino Transf (AST/SGOT) 18 Alanine Aminotransferase (ALT/SGPT) 15 Total Bilirubin 0.8 Sodium Level 139 Potassium Level 3.7 Chloride Level 107 Carbon Dioxide Level 26.8 Anion Gap 5 Estimat Glomerular Filtration Rate 37 B-Type Natriuretic Peptide 42 Thyroid Stimulating Hormone 3rd Gen 1.820 Urine Color YELLOW Urine Turbidity CLEAR Urine pH 5.5 Urine Specific [place] 1.010 Urine Protein TRACE Urine Glucose (UA) NEG Urine Ketones NEG Urine Occult Blood SMALL Urine Nitrite NEG Urine Bilirubin NEG Urine Urobilinogen LESS THAN 2.0 Urine Leukocyte Esterase NEG Urine RBC 1 Urine WBC 1 Urine Squamous Epithelial Cells <1 Urine Bacteria MANY Urine Hyaline Casts 3 Urine Mucus FEW Microscopic Urinalysis Comment CATH-CULTURE IND Date/Time Source Procedure Growth Status 01/26/17 18:45 Urine Catheterized Urine Urine Culture Pending Received Result Diagram: 01/26/17 18101/26/17 181 Caprini VTE Risk Assessment Caprini VTE Risk Assessment: Mod/High Risk (score >= 2) Caprini Risk Assessment Model Point Value = 1 Point Value = 2 Point Value = 3 Point Value = 5 Age 41-60 Minor surgery BMI > 25 kg/m2 Swollen legs Varicose veins or History of unexplained or recurrent spontaneous Oral contraceptives or hormone replacement Sepsis (< 1 month) Serious lung disease, including pneumonia (< 1 month) Abnormal pulmonary function Acute myocardial infarction Congestive heart failure (< 1 month) History of inflammatory bowel disease Medical patient at bed rest Age 61-74 Arthroscopic surgery Major open surgery (> 45 min) Laparoscopic surgery (> 45 min) Malignancy Confined to bed (> 72 hours) Immobilizing plaster cast Central venous access Age >= 75 History of VTE Family history of VTE Factor V Leiden Prothrombin [id number] Lupus anticoagulant Anticardiolipin antibodies Elevated serum homocysteine Heparin-induced thrombocytopenia Other congenital or acquired thrombophilia Stroke (< 1 month) Elective arthroplasty Hip, pelvis, or leg fracture Acute spinal cord injury (< 1 month) Prophylaxis Regimen Total Risk Factor Score Risk Level Prophylaxis Regimen 0-1 Low Early ambulation 2 Moderate Order ONE of the following: *Sequential Compression Device (SCD) *Heparin 5000 units SQ BID 3-4 Higher Order ONE of the following medications: *Heparin 5000 units SQ TID *Enoxaparin/Lovenox 40 mg SQ daily (WT < 150 kg, CrCl > 30 mL/min) *Enoxaparin/Lovenox 30 mg SQ daily (WT < 150 kg, CrCl > 10-29 mL/min) *Enoxaparin/Lovenox 30 mg SQ BID (WT < 150 kg, CrCl > 30 mL/min) AND/OR *Sequential Compression Device (SCD) 5 or more Highest Order ONE of the following medications: *Heparin 5000 units SQ TID (Preferred with Epidurals) *Enoxaparin/Lovenox 40 mg SQ daily (WT < 150 kg, CrCl > 30 mL/min) *Enoxaparin/Lovenox 30 mg SQ daily (WT < 150 kg, CrCl > 10-29 mL/min) *Enoxaparin/Lovenox 30 mg SQ BID (WT < 150 kg, CrCl > 30 mL/min) AND *Sequential Compression Device (SCD) Assessment and Plan Problem List: (1) Generalized weakness ICD Code: R53.1 - Weakness (2) Gait instability ICD Code: R26.81 - Unsteadiness on feet (3) Bacteriuria ICD Code: R82.71 - Bacteriuria (4) JORJE (acute kidney injury) ICD Code: N17.9 - Acute kidney failure, unspecified (5) A-fib ICD Code: I48.91 - Unspecified atrial fibrillation (6) DM (diabetes mellitus) ICD Code: E11.9 - Type 2 diabetes mellitus without complications Assessment and Plan A/P: 1. Generalized Weakness: x4 days w/ progressive worsening, difficulty ambulating due to symptoms. Possibly related to bacteriuria/UTI. IVF, IV Abx for UTI, PT for eval/tx. 2. Gait Instability: secondary to above, ambulation attempted in ER, however unsuccessful. Unsafe d/c home. PT as above, Case Management for assistance w/ possible placement. 3. Bacteriuria: Asymptomatic, however in light of symptoms will treat w/ IV Abx, IVF as above. Follow up cultures. 4. JORJE: Acute on Chronic. Creatinine 1.39, previously 1.17 on 10/17/16. IVF for hydration, repeat labs in am. 5. A-fib: Chronic. Rate-controlled. On Coumadin, INR therapeutic at 2.6. Resume home medications, monitor INR 6. DM: Sliding scale w/ Accu-Cheks. Transient hypoglycemia in ER, hold long- acting Insulin for now. 7. DVT Prophylaxis: Coumadin as above. 8. Social work for d/c planning as needed. 9. Case discussed w/ ER physician at length. Jodi Hall MD Jan 26, 2017 20:21
[2017-01-26] MEDS ORDERED: LACTULOSE SYRUP 20 GM/30 ML CUP PO PRN (20:30)
[2017-01-26] MEDS ORDERED: ONDANSETRON HCL 4 MG/2 ML VIAL IVP PRN (20:30)
[2017-01-26] MEDS ORDERED: ACETAMINOPHEN/HYDROcodone 325 MG/5 MG TAB PO PRN (20:30)
[2017-01-26] MEDS ORDERED: BISACODYL 10 MG SUPP RECTAL PRN (20:30)
[2017-01-26] MEDS ORDERED: DEXTROSE 50% IN WATER 50 ML VIAL(D50) IV PUSH PRN (20:30)
[2017-01-26] MEDS ORDERED: ACETAMINOPHEN/HYDROcodone 325 MG/10 MG TAB PO PRN (20:30)
[2017-01-26] MEDS ORDERED: SENNOSIDES 8.6 MG TAB PO PRN (20:30)
[2017-01-26] MEDS ORDERED: MAGNESIUM HYDROXIDE SUSP 30 ML CUP PO PRN (20:30)
[2017-01-26] MEDS ORDERED: GLUCAGON 1 MG/ML VIAL OTHER PRN (20:30)
[2017-01-26] MEDS: SODIUM CHLOR 0.9% 1000 ML INJ 1,000 ML IV SCH (20:58)
[2017-01-26] MEDS: cefTRIAXone INJ 1,000 MG in SODIUM CHLORIDE 0.9% INJ 100 ML IV SCH (20:58)
[2017-01-26] MEDS: INSULIN ASPART SUPPLEMENTAL SCALE SQ SCH (21:00)
[2017-01-26] MEDS: SODIUM CHLORIDE 0.9% FLUSH 10 ML FLUSH IV FLUSH SCH (21:00)
[2017-01-26] MEDS: DOCUSATE SODIUM 50 MG/SENNA 8.6 MG TAB PO SCH (21:00)
[2017-01-26] MEDS: ACETAMINOPHEN 325 MG TAB PO PRN (21:59)
[2017-01-26 22:21] VITALS: BP 121/67; PULSE 94; RESP 24; TEMP 99; O2SAT 98
[2017-01-27 00:18] VITALS: BP 107/53; PULSE 94; RESP 24; TEMP 97.6; O2SAT 97
[2017-01-27] MEDS: PREGABALIN 100 MG CAP PO SCH ×3 (01:03→20:19)
[2017-01-27 03:58] VITALS: BP 115/60; PULSE 88; RESP 24; TEMP 99.4; O2SAT 97
[2017-01-27 04:25] LABS: AUTOMATED NEUTROPHIL # 5.6 TH/MM3 (1.8-7.7); BASOPHIL # 0.1 TH/MM3 (0-0.2); BASOPHIL % 0.7 % (0.0-2.0); EOSINOPHIL # 0.1 TH/MM3 (0-0.4); EOSINOPHIL % 1.3 % (0.0-4.0); HEMATOCRIT 32.8 % (35.0-46.0); HEMO FLAGS DIFF FINAL; LYMPH % 17.4 % (9.0-44.0); LYMPHOCYTE # 1.4 TH/MM3 (1.0-4.8); MEAN CELL VOLUME 83.4 FL (80.0-100.0); MEAN CORPUSCULAR HEMOGLOBIN 27.2 PG (27.0-34.0); MEAN CORPUSCULAR HGB CONC 32.6 % (32.0-36.0); MONO % 9.5 % (0.0-8.0); NEUT % 71.1 % (16.0-70.0); PLATELET COUNT 187 TH/MM3 (150-450); RED BLOOD COUNT 3.94 MIL/MM3 (4.00-5.30); RED CELL DISTRIBUTION WIDTH 15.2 % (11.6-17.2); WHITE BLOOD COUNT 7.8 TH/MM3 (4.0-11.0)
[2017-01-27 04:35] LABS: INTERNATIONAL NORMALIZED RATIO 2.6 RATIO; PROTHROMBIN TIME - PATIENT 25.9 SEC (9.8-11.6)
[2017-01-27 05:08] LABS: ALKALINE PHOSPHATASE 56 U/L (45-117); ALT (GPT) 13 U/L (10-53); ANION GAP 5 MEQ/L (5-15); AST (GOT) 13 U/L (15-37); BICARBONATE 25.6 MEQ/L (21.0-32.0); BLOOD UREA NITROGEN 25 MG/DL (7-18); CHLORIDE 108 MEQ/L (98-107); GLOMERULAR FILTRATION RATE 41 ML/MIN (>89); POTASSIUM 3.6 MEQ/L (3.5-5.1); SODIUM (NA) 139 MEQ/L (136-145); TOTAL BILIRUBIN ADULT 0.8 MG/DL (0.2-1.0)
[2017-01-27] MEDS: SODIUM CHLOR 0.9% 1000 ML INJ 1,000 ML IV SCH ×2 (06:16→16:47)
[2017-01-27 08:00] VITALS: BP 129/58; PULSE 87; RESP 18; TEMP 97.7; O2SAT 96
[2017-01-27] MEDS: INSULIN ASPART SUPPLEMENTAL SCALE SQ SCH ×4 (08:00→20:20)
[2017-01-27] MEDS: CARVEDILOL 6.25 MG TAB PO SCH (08:05)
[2017-01-27] MEDS: DOCUSATE SODIUM 50 MG/SENNA 8.6 MG TAB PO SCH ×2 (08:05→20:19)
[2017-01-27] MEDS: SODIUM CHLORIDE 0.9% FLUSH 10 ML FLUSH IV FLUSH SCH ×2 (08:06→20:19)
[2017-01-27] MEDS ORDERED: WARFARIN SOD 2.5 MG TAB PO SCH (09:00)
--- NOTE | 2017-01-27 11:43 | HHI.PR ---
Subjective Remarks Follow-up for lower extremity weakness Patient stated that she was doing fine and has home PT. She stated that when she worked with home PT on she was able to walk with a walker. She stated that all of a sudden she wasn't able to lift her leg up visit with a walker so went to the emergency department due to inability to walk. She denied any weakness and stated that it was more not able to lift her feet and visit with the walker. She denies any acute back pain. She stated that she has a chronic lower back pain that is very mild and the same. She asked for a Lidoderm patch and stated that she usually uses a Lidoderm patch for. Patient denies any fecal or urinary incontinence. She stated that she has chronic neuropathy but there has not been any changes in her neuropathy. Objective Vitals Vital Signs Date Time Temp Pulse Resp B/P (MAP) Pulse Ox O2 Delivery O2 Flow Rate FiO2 01/27/17 08:00 97.7 87 18 129/58 (81) 96 01/27/17 03:58 99.4 88 24 115/60 (78) 97 01/27/17 00:18 97.6 94 24 107/53 (71) 97 01/26/17 22:21 99.0 94 24 121/67 (85) 98 01/26/17 17:34 97.8 95 20 128/75 (92) 100 I/O 01/26/17 01/26/17 01/26/17 01/27/17 01/27/17 01/27/17 07:00 15:00 23:00 07:00 15:00 23:00 Intake Total 480 ml Balance 480 ml Intake Oral 480 ml # Voids 4 Result Diagram: 01/27/17 0339 01/27/17 0339 Objective Remarks GENERAL: in NAD CARDIOVASCULAR: Regular rate and rhythm without murmurs, gallops, or rubs. RESPIRATORY: Breath sounds equal bilaterally. No accessory muscle use. GASTROINTESTINAL: Abdomen soft, non-tender, nondistended. MUSCULOSKELETAL: 5 out of 5 lower extremity strength. Decrease lower extremity sensation but this is patient's baseline. Medications and IVs Current Medications Sodium Chloride (NS Flush) 2 ml UNSCH PRN IV FLUSH FLUSH AFTER USING IV ACCESS ; Start 01/26/17 at 17:45; Stop 01/26/17 at 20:30; Status DC Ceftriaxone Sodium 1000 mg/ Sodium Chloride 100 ml @ 200 mls/hr Q24H IV Last administered on 01/26/17 20:58; Start 01/26/17 at 21:00 Dextrose (D50w (Vial) Inj) 50 ml UNSCH PRN IV PUSH HYPOGLYCEMIA-SEE COMMENTS; Start 01/26/17 at 20:30 Glucagon (Glucagon Inj) 1 mg UNSCH PRN OTHER HYPOGLYCEMIA-SEE COMMENTS; Start 01/26/17 at 20:30 Insulin Aspart (NovoLOG SUPPLEMENTAL SCALE) 1 ACHS SLIDING SCALE SQ ; Start at 21:00 Sodium Chloride 1,000 ml @ 100 mls/hr Q10H IV Last administered on 01/26/17 20:58; Start 01/26/17 at 20:16 Sodium Chloride (NS Flush) 2 ml UNSCH PRN IV FLUSH FLUSH AFTER USING IV ACCESS ; Start 01/26/17 at 20:30 Sodium Chloride (NS Flush) 2 ml BID IV FLUSH Last administered on 01/27/17 08 :06; Start 01/26/17 at 21:00 Ondansetron HCl (Zofran Inj) 4 mg Q6H PRN IVP NAUSEA OR VOMITING; Start at 20:30 Acetaminophen (Tylenol) 650 mg Q6H PRN PO FEVER/PAIN SCALE 1 TO 2 Last administered on 01/26/17 21:59; Start 01/26/17 at 20:30 Acetaminophen/ Hydrocodone Bitart (Arabi 5-325 Mg) 1 tab Q4H PRN PO PAIN SCALE 3 TO 5; Start 01/26/17 at 20:30 Acetaminophen/ Hydrocodone Bitart (Arabi 10-325 Mg) 1 tab Q4H PRN PO PAIN SCALE 6 TO 10; Start 01/26/17 at 20:30 Senna/Docusate Sodium (Leelee-Colace) 1 tab BID PO Last administered on 08:05; Start 01/26/17 at 21:00 Magnesium Hydroxide (Milk Of Magnesia Liq) 30 ml Q12H PRN PO Mild constipation ; Start 01/26/17 at 20:30 Sennosides (Senokot) 17.2 mg Q12H PRN PO Moderate constipation; Start at 20:30 Bisacodyl (Dulcolax Supp) 10 mg DAILY PRN RECTAL SEVERE CONSITIPATION; Start 01/26/17 at 20:30 Lactulose (Lactulose Liq) 30 ml DAILY PRN PO SEVERE CONSITIPATION; Start 01/26 at 20:30 Carvedilol (Coreg) 6.25 mg DAILY PO Last administered on 01/27/17 08:05; Start 01/27/17 at 09:00 Pregabalin (Lyrica) 100 mg BID PO Last administered on 01/27/17 01:05; Start 01/26/17 at 21:00 Ropinirole HCl (Requip) 0.25 mg HS PO Last administered on 01/27/17 01:15; Start 01/26/17 at 21:00 Warfarin Sodium (Coumadin) 2.5 mg DAILY PO ; Start 01/27/17 at 09:00; Stop at 09:00; Status DC Warfarin Sodium (Coumadin) 2.5 mg DAILY@1600 PO ; Start 01/27/17 at 16:00 A/P Problem List: (1) Generalized weakness ICD Code: R53.1 - Weakness (2) Gait instability ICD Code: R26.81 - Unsteadiness on feet (3) Bacteriuria ICD Code: R82.71 - Bacteriuria (4) JORJE (acute kidney injury) ICD Code: N17.9 - Acute kidney failure, unspecified (5) A-fib ICD Code: I48.91 - Unspecified atrial fibrillation (6) DM (diabetes mellitus) ICD Code: E11.9 - Type 2 diabetes mellitus without complications Assessment and Plan 76-year-old female complaining about inability to ambulate Inability to ambulate -Strength is intact from her baseline at the moment. No red flags noted. Patient was in rehabilitation prior for similar symptoms but now is receiving PT at home. -Contributing factor most likely secondary to patient being morbidly obese. -Recommend weight loss. Will get x-ray lumbar, sacral, coccyx area. -Consult to case management to help with placement but at the moment patient does not qualify for inpatient rehabilitation/SNF. -PT consulted. Will have patient work with PT since she does not qualify for any inpatient rehabilitation. Bacteriuria: -Patient asymptomatic. She was treated empirically with IV antibiotics. We'll continue IV antibiotics pending cultures. JORJE: Acute on Chronic. -Improved. Back to baseline. Avoid nephrotoxins. Continue to monitor creatinine. A-fib: - Chronic. Rate-controlled. On Coumadin, INR therapeutic at 2.6. Resume home medications. DM: - Sliding scale w/ Accu-Cheks. Transient hypoglycemia in ER, DVT Prophylaxis: Coumadin as above. Megha Hook MD Jan 27, 2017 11:43
--- NOTE | 2017-01-27 12:12 | RADRPT ---
EXAM DATE/TIME: 01/27/2017 11:44 [facility] COMPARISON: No previous studies available for comparison. INDICATIONS : Pain no known injury MEDICAL HISTORY : Diabetes mellitus type II. Congestive heart failure. Obesity SURGICAL HISTORY : None. ENCOUNTER: Initial ACUITY: >1 year PAIN SCORE: 10/10 LOCATION: Sacrum and coccyx FINDINGS: There are degenerative changes at L4-5 and L5-S1. SI joints are normal Sacrum intact. CONCLUSION: Degenerative changes lumbar spine Sacrum intact Ceasar Reed MD FACR on January 27, 2017 at 12:10 Board Certified Radiologist. This report was verified electronically.
[2017-01-27 12:27] VITALS: BP 124/76; PULSE 87; RESP 18; TEMP 97.8; O2SAT 95
--- NOTE | 2017-01-27 12:44 | RADRPT ---
EXAM DATE/TIME: 01/27/2017 11:46 [facility] COMPARISON: No previous studies available for comparison. INDICATIONS : Pain no known injury MEDICAL HISTORY : Diabetes mellitus type II. Congestive heart failure. Obesity SURGICAL HISTORY : Gastric bypass. ENCOUNTER: Initial ACUITY: >1 year PAIN SCORE: 10/10 LOCATION: Lower Lumbar spine FINDINGS: Two view examination was performed. There are five non-rib bearing vertebral bodies. Lateral project ion shows wedge deformity of L1 with central impression on the superior endplate of L2. These may bot h be chronic. High grade 1 anterolisthesis of L4 on 5 is probably due to facet hypertrophy and degene ration. Atherosclerotic calcification of the regional vasculature. CONCLUSION: 1. High grade one anterolisthesis of L4 on 5 appears reduced due to facet hypertrophy and degeneratio n. 2. Wedge deformity of L1 with minimal impression on the superior endplate of L2 centrally both appear to be chronic. Clark Saldivar MD on January 27, 2017 at 12:39 Board Certified Radiologist. This report was verified electronically.
[2017-01-27] MEDS: LIDOCAINE HCL 5% PATCH T-DERMAL SCH (12:58)
[2017-01-27] MEDS: ACETAMINOPHEN 325 MG TAB PO PRN ×2 (13:08→23:29)
[2017-01-27 16:38] VITALS: BP 138/65; PULSE 84; RESP 20; TEMP 97.4; O2SAT 97
[2017-01-27] MEDS: WARFARIN SOD 2.5 MG TAB PO SCH (16:46)
[2017-01-27] MEDS: NYSTATIN 100,000 U/GM PWD 15 GM BTL TOPICAL SCH ×2 (16:46→20:26)
--- NOTE | 2017-01-27 17:56 | EKG ---
Date Performed: 01/26/2017 Time Performed: 18:09:34 PTAGE: 76 years EKG: ATRIAL FIBRILLATION MARKED RIGHT AXIS DEVIATION RIGHT BUNDLE BRANCH BLOCK ABNORMAL ECG Sinc e PREVIOUS TRACING , no significant change noted PREVIOUS TRACIN03/11/2015 13.44 DOCTOR: Gaudencio Murguia Interpretating Date/Time 01/27/2017 17:54:44
[2017-01-27] MEDS: cefTRIAXone INJ 1,000 MG in SODIUM CHLORIDE 0.9% INJ 100 ML IV SCH (20:19)
[2017-01-27 20:58] VITALS: BP 154/78; PULSE 98; RESP 18; TEMP 98.5; O2SAT 97
[2017-01-27] MEDS: REMOVE OLD LIDOCAINE PATCH T-DERMAL SCH (21:00)
[2017-01-28 00:39] VITALS: BP 135/61; PULSE 94; RESP 20; TEMP 98.1; O2SAT 95
[2017-01-28] MEDS: SODIUM CHLOR 0.9% 1000 ML INJ 1,000 ML IV SCH ×3 (02:16→22:16)
[2017-01-28 04:18] VITALS: BP 139/82; PULSE 84; RESP 20; TEMP 98.6; O2SAT 98
[2017-01-28 07:42] VITALS: BP 125/77; PULSE 87; RESP 20; TEMP 96.6; O2SAT 94
[2017-01-28] MEDS: INSULIN ASPART SUPPLEMENTAL SCALE SQ SCH ×4 (08:00→20:33)
[2017-01-28] MEDS: PREGABALIN 100 MG CAP PO SCH ×2 (09:02→20:32)
[2017-01-28] MEDS: SODIUM CHLORIDE 0.9% FLUSH 10 ML FLUSH IV FLUSH SCH ×2 (09:02→20:32)
[2017-01-28] MEDS: NYSTATIN 100,000 U/GM PWD 15 GM BTL TOPICAL SCH ×2 (09:02→20:33)
[2017-01-28] MEDS: ACETAMINOPHEN 325 MG TAB PO PRN ×2 (09:02→18:08)
[2017-01-28] MEDS: LIDOCAINE HCL 5% PATCH T-DERMAL SCH (09:03)
[2017-01-28] MEDS: DOCUSATE SODIUM 50 MG/SENNA 8.6 MG TAB PO SCH ×2 (09:03→20:32)
[2017-01-28] MEDS: CARVEDILOL 6.25 MG TAB PO SCH (09:03)
[2017-01-28 11:01] LABS: BICARBONATE 22.6 MEQ/L (21.0-32.0); POTASSIUM 3.6 MEQ/L (3.5-5.1)
--- NOTE | 2017-01-28 11:56 | HHI.PR ---
Subjective Remarks Follow-up for lower extremity weakness Patient states she feels the same. She stated that she is on the wrong dose of Requip but nurse called her pharmacist and stated that it is the correct dose. Also start wanted to restart Linzess. Objective Vitals Vital Signs Date Time Temp Pulse Resp B/P (MAP) Pulse Ox O2 Delivery O2 Flow Rate FiO2 01/28/17 07:42 96.6 87 20 125/77 (93) 94 01/28/17 04:18 98.6 84 20 139/82 (101) 98 01/28/17 00:39 98.1 94 20 135/61 (85) 95 01/28/17 00:29 20 01/27/17 21:19 20 01/27/17 20:58 98.5 98 18 154/78 (103) 97 01/27/17 16:38 97.4 84 20 138/65 (89) 97 01/27/17 12:27 97.8 87 18 124/76 (92) 95 I/O 01/27/17 01/27/17 01/27/17 01/28/17 01/28/17 01/28/17 07:00 15:00 23:00 07:00 15:00 23:00 Intake Total 480 ml 1850 ml Balance 480 ml 1850 ml Intake Oral 480 ml 750 ml IV Total 1100 ml # Voids 4 2 Result Diagram: 01/27/17 0339 01/28/17 0945 Imaging Last Impressions Sacrum and Coccyx X-Ray 01/27/17 0000 Signed Impressions: Service Date/Time: Friday, January 27, 2017 11:44 - CONCLUSION: Degenerative changes lumbar spine Sacrum intact Ceasar Reed MD FACR Lumbar Spine X-Ray 01/27/17 0000 Signed Impressions: Service Date/Time: Friday, January 27, 2017 11:46 - CONCLUSION: 1. High grade one anterolisthesis of L4 on 5 appears reduced due to facet hypertrophy and degeneration. 2. Wedge deformity of L1 with minimal impression on the superior endplate of L2 centrally both appear to be chronic. Clark Saldivar MD Chest X-Ray 01/26/17 1536 Signed Impressions: Service Date/Time: Thursday, January 26, 2017 17:56 - CONCLUSION: Normal examination. The right humeral head is elevated suggesting a right-sided rotator cuff tear Charles Mortensen MD Objective Remarks GENERAL: in NAD CARDIOVASCULAR: Regular rate and rhythm without murmurs, gallops, or rubs. RESPIRATORY: Breath sounds equal bilaterally. No accessory muscle use. GASTROINTESTINAL: Abdomen soft, non-tender, nondistended. MUSCULOSKELETAL: 5 out of 5 lower extremity strength. Decrease lower extremity sensation but this is patient's baseline. Medications and IVs Current Medications Sodium Chloride (NS Flush) 2 ml UNSCH PRN IV FLUSH FLUSH AFTER USING IV ACCESS ; Start 01/26/17 at 17:45; Stop 01/26/17 at 20:30; Status DC Ceftriaxone Sodium 1000 mg/ Sodium Chloride 100 ml @ 200 mls/hr Q24H IV Last administered on 01/27/17 20:19; Start 01/26/17 at 21:00; Stop 01/28/17 at 11 :50; Status DC Dextrose (D50w (Vial) Inj) 50 ml UNSCH PRN IV PUSH HYPOGLYCEMIA-SEE COMMENTS; Start 01/26/17 at 20:30 Glucagon (Glucagon Inj) 1 mg UNSCH PRN OTHER HYPOGLYCEMIA-SEE COMMENTS; Start 01/26/17 at 20:30 Insulin Aspart (NovoLOG SUPPLEMENTAL SCALE) 1 ACHS SLIDING SCALE SQ Last administered on 01/27/17 20:20; Start 01/26/17 at 21:00 Sodium Chloride 1,000 ml @ 100 mls/hr Q10H IV Last administered on 01/28/17 02:16; Start 01/26/17 at 20:16 Sodium Chloride (NS Flush) 2 ml UNSCH PRN IV FLUSH FLUSH AFTER USING IV ACCESS ; Start 01/26/17 at 20:30 Sodium Chloride (NS Flush) 2 ml BID IV FLUSH Last administered on 01/28/17 09 :02; Start 01/26/17 at 21:00 Ondansetron HCl (Zofran Inj) 4 mg Q6H PRN IVP NAUSEA OR VOMITING; Start at 20:30 Acetaminophen (Tylenol) 650 mg Q6H PRN PO FEVER/PAIN SCALE 1 TO 2 Last administered on 01/28/17 09:02; Start 01/26/17 at 20:30 Acetaminophen/ Hydrocodone Bitart (Selden 5-325 Mg) 1 tab Q4H PRN PO PAIN SCALE 3 TO 5; Start 01/26/17 at 20:30 Acetaminophen/ Hydrocodone Bitart (Selden 10-325 Mg) 1 tab Q4H PRN PO PAIN SCALE 6 TO 10; Start 01/26/17 at 20:30 Senna/Docusate Sodium (Leelee-Colace) 1 tab BID PO Last administered on 09:03; Start 01/26/17 at 21:00 Magnesium Hydroxide (Milk Of Magnesia Liq) 30 ml Q12H PRN PO Mild constipation ; Start 01/26/17 at 20:30 Sennosides (Senokot) 17.2 mg Q12H PRN PO Moderate constipation; Start at 20:30 Bisacodyl (Dulcolax Supp) 10 mg DAILY PRN RECTAL SEVERE CONSITIPATION; Start 01/26/17 at 20:30 Lactulose (Lactulose Liq) 30 ml DAILY PRN PO SEVERE CONSITIPATION; Start 01/26 at 20:30 Carvedilol (Coreg) 6.25 mg DAILY PO Last administered on 01/28/17 09:03; Start 01/27/17 at 09:00 Pregabalin (Lyrica) 100 mg BID PO Last administered on 01/28/17 09:02; Start 01/26/17 at 21:00 Ropinirole HCl (Requip) 0.25 mg HS PO Last administered on 01/27/17 20:19; Start 01/26/17 at 21:00 Warfarin Sodium (Coumadin) 2.5 mg DAILY PO ; Start 01/27/17 at 09:00; Stop at 09:00; Status DC Warfarin Sodium (Coumadin) 2.5 mg DAILY@1600 PO Last administered on 16:46; Start 01/27/17 at 16:00 Lidocaine HCl (Lidoderm 5% Patch.12 Hr) 1 patch DAILY T-DERMAL Last administered on 01/28/17 09:03; Start 01/27/17 at 12:00 Miscellaneous Information 1 Q24H T-DERMAL Last administered on 01/27/17 21:00 ; Start 01/27/17 at 21:00 Nystatin (Mycostatin Powder) 1 applic Q12HR TOPICAL Last administered on 09:02; Start 01/27/17 at 15:00 Non-Formulary Medication 290 mcg DAILY PO ; Start 01/28/17 at 12:00; Status UNV A/P Problem List: (1) Generalized weakness ICD Code: R53.1 - Weakness (2) Gait instability ICD Code: R26.81 - Unsteadiness on feet (3) Bacteriuria ICD Code: R82.71 - Bacteriuria (4) JORJE (acute kidney injury) ICD Code: N17.9 - Acute kidney failure, unspecified (5) A-fib ICD Code: I48.91 - Unspecified atrial fibrillation (6) DM (diabetes mellitus) ICD Code: E11.9 - Type 2 diabetes mellitus without complications Assessment and Plan 76-year-old female complaining about inability to ambulate Inability to ambulate -Strength is intact from her baseline at the moment. No red flags noted. Patient was in rehabilitation prior for similar symptoms but now is receiving PT at home. -Contributing factor most likely secondary to patient being morbidly obese. -Recommend weight loss. -X-ray shows degenerative joint disease and high grade 1 anteriorlisthesis of L4 on 5. -Patient poor surgical candidate. -Consult neurologist to see if further studies need to be done. Unable to do MRI since patient does have metal in her knee. Bacteriuria: -Patient asymptomatic. Urine cultures negative. Discontinue Rocephin. JORJE: Acute on Chronic. -Improved. Back to baseline. Avoid nephrotoxins. Continue to monitor creatinine. A-fib: - Chronic. Rate-controlled. On Coumadin, INR therapeutic at 2.6. Resume home medications. DM: - Sliding scale w/ Accu-Cheks. Transient hypoglycemia in ER, DVT Prophylaxis: Coumadin as above. Discharge Planning Once patient is medically cleared she will be discharged to rehabilitation facility. Megha Hook MD Jan 28, 2017 11:56
[2017-01-28] MEDS ORDERED: LINZESS 290 MCG PO SCH (12:30)
[2017-01-28 13:13] VITALS: BP 132/85; PULSE 81; RESP 20; TEMP 97.2; O2SAT 98
--- NOTE | 2017-01-28 16:45 | MB ---
cc: JUDY MATT M.D. DATE OF : 1940, 76 DATE OF CONSULTATION: 01/28/2017 REASON FOR CONSULTATION: Lower extremity weakness, low back pain. HISTORY OF PRESENT ILLNESS: This is a 76 year-old woman with a history of hypertension, cervical cancer, hyperlipidemia, COPD, CHF, last EF in February 2015, 50 to 55%, and peripheral neuropathy as well as diabetes, sleep apnea, comes in with weakness for four days. She states she usually gets around in an electric wheelchair but had PT on Friday and the next day, Friday, she was having more trouble walking with the walker, but her baseline is with a wheelchair to scooter. She had trouble actually getting to bed and at one point she was just sitting on the edge of the bed, she could not get in. She seems to be weaker in her right leg. She cannot lift it off the bed, only bending at the knee, compared to the left leg. She does complain of some back pain, but not severe but does complain of some right hip pain as well. Her right leg seems externally deviated as well. She did state that it did come on pretty quickly. No symptoms in the face or in the arms. ALLERGIES: None to medications. There is some remote history of possible MDRO, MRSA in the leg wound, possibly in . FAMILY HISTORY: Noncontributory. SOCIAL HISTORY: She apparently lives alone in an apartment, has a Life Alert. No tobacco or alcohol, occasional marijuana. HOME MEDICATIONS: 1. Levamir. 2. Requip. 3. Lyrica. 4. Tylenol. 5. Coreg. 6. Potassium. 7. Torsemide. 8. Apparently warfarin. 9. Linzess. 10. Tresiba 10. PHYSICAL EXAMINATION: Vitals: Temperature is 97.2, pulse 81, respiratory rate 20. Blood pressure 132/85, sating 98% on room air. GENERAL: She is awake and alert. She is oriented and fluent. HEENT: The pupils are reactive. Face looks symmetrical. Tongue midline. Motor and upper extremities, she has limitation, range of motion, looks like she has an old rotator cuff issue, but there is no drift noted. Leg lag cannot be assessed. Her right leg is externally deviated, but she can lift it at the thigh. She has a distant 3/5, left leg is 4/5. She has diffuse edema in the legs. Reflexes cannot be elicited in both lower extremities. She has had bilateral knee replacement. Sensory: She cannot feel vibration, position sense, pinprick, light touch of the knees down. She can feel vibration, normal sensory in her hands. I did try to do a straight leg raise and when I lifted the right leg up she had some referred pain in either her hip or lower back, it is not clear. Gait: Cannot be assessed. [id number] is normal. LABORATORY DATA: Reviewed. Her INR is 2.6. CBC, hemoglobin 10.7, platelets are 187,000. Chemistries: Currently her creatinine is 1.16, GFR 45, glucose 132. Albumin 2.7, TSH 1.82. Urine: small blood. Culture is not indicated. She did have a urine culture, however, no growth. X-RAYS: Lumbar spine x-ray shows high grade one anterolisthesis of L4 on 5, appears reduced due to facet hypertrophy and degeneration, wedge deformity L1 minimal impression on the superior end plate of L2 centrally, both appear to be chronic. Sacrum coccyx x-ray shows degenerative changes in the lumbar sine, sacrum intact. Chest x-ray: Normal right humeral head, elevated showing a possible right rotator cuff tear. I do not see any imaging of the brain. IMPRESSION This is a morbidly obese pleasant 76-year-old woman with lower extremity weakness predominantly in the right leg. Severe neuropathy. Possible hip issue versus lumbar, less likely stroke. RECOMMENDATIONS: Recommend at least a CT of the head to rule out hypodensity such as a stroke, although unlikely due to the fact that she is well anticoagulated, but I will go ahead and order the CT. She should have some vitamin level checked, B12, B1, B6. She will need extensive PT. She will also need an MRI of her lower spine, lumbosacral spine as an outpatient if she does not fit into our machine. Her artificial is titanium and they are compatible with an MRI. She will also need an outpatient EMG and nerve conduction study at some point in time. Of note, she stated that she saw Dr. Kendrick about a year ago in [place]. She can follow up with his office or our office. She should continue the lyrica. Unfortunately I do not think that she can go home given the fact that she cannot ambulate or transfer. She would benefit from inpatient rehab either at [facility], or she would prefer, she stated [facility]. Case Management would have to find out where she can go. Otherwise we will go ahead and get the two studies, the hip, the CT and the vitamin levels. Continue current care as outlined. MD SHARAD Fry/NETO /1:46 PM /3:21 PM
--- NOTE | 2017-01-28 17:31 | RADRPT ---
EXAM DATE/TIME: 01/28/2017 17:16 [facility] COMPARISON: No previous studies available for comparison. INDICATIONS : Patient complains of weakness. RADIATION DOSE: 35.78 CTDIvol (mGy) MEDICAL HISTORY : Cardiovascular disease. Hypertension. Chronic obstructive pulmonary disease.cervical cancer, diabetic SURGICAL HISTORY : Cholecystectomy. Hysterectomy. ENCOUNTER: Initial ACUITY: 1 day PAIN SCALE: 0/10 LOCATION: cranial TECHNIQUE: Multiple contiguous axial images were obtained of the head. Using automated exposure control and adj ustment of the mA and/or kV according to patient size, radiation dose was kept as low as reasonably a chievable to obtain optimal diagnostic quality images. DICOM format image data is available electro nically for review and comparison. FINDINGS: CEREBRUM: The ventricles are normal for age. No evidence of midline shift, mass lesion, hemorrhage or acute in farction. No extra-axial fluid collections are seen. POSTERIOR FOSSA: The cerebellum and brainstem are intact. The 4th ventricle is midline. The cerebellopontine angle i s unremarkable. EXTRACRANIAL: The visualized portion of the orbits is intact. SKULL: The calvaria is intact. No evidence of skull fracture. CONCLUSION: Normal examination. Charles Mortensen MD on January 28, 2017 at 17:29 Board Certified Radiologist. This report was verified electronically.
[2017-01-28] MEDS: WARFARIN SOD 2.5 MG TAB PO SCH (18:07)
[2017-01-28 20:25] VITALS: BP 138/79; PULSE 88; RESP 24; TEMP 98.5; O2SAT 98
[2017-01-28] MEDS: REMOVE OLD LIDOCAINE PATCH T-DERMAL SCH (20:33)
--- NOTE | 2017-01-28 21:36 | RADRPT ---
EXAM DATE/TIME: 01/28/2017 21:21 [facility] COMPARISON: No previous studies available for comparison. INDICATIONS : Right hip pain and weakness. MEDICAL HISTORY : Cardiovascular disease. Hypertension. Chronic obstructive pulmonary disease. Cervical cancer, Diabeti c SURGICAL HISTORY : Cholecystectomy. Hysterectomy ENCOUNTER: Initial ACUITY: 1 day PAIN SCORE: 6/10 LOCATION: Right pelvis FINDINGS: Osseous structures are osteopenic. The bony pelvic ring is grossly intact. There is mild narrowing of the superior-medial hip joints bilaterally. Mild collar of osteophytes is seen about the right fe moral neck. No fracture seen. The primary and secondary trabecular pattern of the femoral neck is m aintained. CONCLUSION: No fracture seen. Mild, symmetric, degenerative changes in the hips. Jamir Mcguire MD on January 28, 2017 at 21:31 Board Certified Radiologist. This report was verified electronically.
[2017-01-29 00:16] VITALS: BP 141/67; PULSE 88; RESP 24; TEMP 97.9; O2SAT 95
[2017-01-29] MEDS: ACETAMINOPHEN 325 MG TAB PO PRN ×3 (03:48→20:57)
[2017-01-29 04:23] VITALS: BP 144/73; PULSE 88; RESP 20; TEMP 97.5; O2SAT 95
[2017-01-29] MEDS: INSULIN ASPART SUPPLEMENTAL SCALE SQ SCH ×4 (08:00→20:58)
[2017-01-29 08:31] VITALS: BP 117/62; PULSE 84; RESP 18; TEMP 98.6; O2SAT 96
[2017-01-29] MEDS: CARVEDILOL 6.25 MG TAB PO SCH (09:04)
[2017-01-29] MEDS: PREGABALIN 100 MG CAP PO SCH ×2 (09:04→20:33)
[2017-01-29] MEDS: DOCUSATE SODIUM 50 MG/SENNA 8.6 MG TAB PO SCH ×2 (09:05→20:33)
[2017-01-29] MEDS: LIDOCAINE HCL 5% PATCH T-DERMAL SCH (09:05)
[2017-01-29] MEDS: SODIUM CHLORIDE 0.9% FLUSH 10 ML FLUSH IV FLUSH SCH ×2 (09:05→20:34)
[2017-01-29] MEDS: SODIUM CHLOR 0.9% 1000 ML INJ 1,000 ML IV SCH (09:06)
[2017-01-29] MEDS: NYSTATIN 100,000 U/GM PWD 15 GM BTL TOPICAL SCH ×2 (09:06→20:35)
--- NOTE | 2017-01-29 10:19 | HHI.PR ---
Subjective Remarks Follow-up for lower extremity weakness Patient stated that she feels a lot stronger now. She stated that she got up 3 times yesterday. She said that she is also able to pivot. Patient states she is very motivated to do physical therapy. Otherwise no other events. Objective Vitals Vital Signs Date Time Temp Pulse Resp B/P (MAP) Pulse Ox O2 Delivery O2 Flow Rate FiO2 01/29/17 08:31 98.6 84 18 117/62 (80) 96 01/29/17 04:48 20 01/29/17 04:23 97.5 88 20 144/73 (96) 95 01/29/17 00:16 97.9 88 24 141/67 (91) 95 01/28/17 21:32 20 01/28/17 20:25 98.5 88 24 138/79 (98) 98 01/28/17 13:13 97.2 81 20 132/85 (101) 98 I/O 01/28/17 01/28/17 01/28/17 01/29/17 01/29/17 01/29/17 07:00 15:00 23:00 07:00 15:00 23:00 Intake Total 1000 ml Balance 1000 ml IV Total 1000 ml # Voids 2 Result Diagram: 01/27/17 0339 01/28/17 0945 Imaging Last Impressions Hip and Pelvis X-Ray 01/28/17 0000 Signed Impressions: Service Date/Time: Saturday, January 28, 2017 21:21 - CONCLUSION: No fracture seen. Mild, symmetric, degenerative changes in the hips. Jamir Mcguire MD Head CT 01/28/17 0000 Signed Impressions: Service Date/Time: Saturday, January 28, 2017 17:16 - CONCLUSION: Normal examination. Charles Mortensen MD Sacrum and Coccyx X-Ray 01/27/17 0000 Signed Impressions: Service Date/Time: Friday, January 27, 2017 11:44 - CONCLUSION: Degenerative changes lumbar spine Sacrum intact Ceasar Reed MD FACR Lumbar Spine X-Ray 01/27/17 0000 Signed Impressions: Service Date/Time: Friday, January 27, 2017 11:46 - CONCLUSION: 1. High grade one anterolisthesis of L4 on 5 appears reduced due to facet hypertrophy and degeneration. 2. Wedge deformity of L1 with minimal impression on the superior endplate of L2 centrally both appear to be chronic. Clark Saldivar MD Chest X-Ray 01/26/17 0727 Signed Impressions: Service Date/Time: Thursday, January 26, 2017 17:56 - CONCLUSION: Normal examination. The right humeral head is elevated suggesting a right-sided rotator cuff tear Charles Mortensen MD Objective Remarks GENERAL: in NAD CARDIOVASCULAR: Regular rate and rhythm without murmurs, gallops, or rubs. RESPIRATORY: Breath sounds equal bilaterally. No accessory muscle use. GASTROINTESTINAL: Abdomen soft, non-tender, nondistended. MUSCULOSKELETAL: 5 out of 5 lower extremity strength. Decrease lower extremity sensation but this is patient's baseline. Medications and IVs Current Medications Sodium Chloride (NS Flush) 2 ml UNSCH PRN IV FLUSH FLUSH AFTER USING IV ACCESS ; Start 01/26/17 at 17:45; Stop 01/26/17 at 20:30; Status DC Ceftriaxone Sodium 1000 mg/ Sodium Chloride 100 ml @ 200 mls/hr Q24H IV Last administered on 01/27/17 20:19; Start 01/26/17 at 21:00; Stop 01/28/17 at 11 :50; Status DC Dextrose (D50w (Vial) Inj) 50 ml UNSCH PRN IV PUSH HYPOGLYCEMIA-SEE COMMENTS; Start 01/26/17 at 20:30 Glucagon (Glucagon Inj) 1 mg UNSCH PRN OTHER HYPOGLYCEMIA-SEE COMMENTS; Start 01/26/17 at 20:30 Insulin Aspart (NovoLOG SUPPLEMENTAL SCALE) 1 ACHS SLIDING SCALE SQ Last administered on 01/29/17 08:00; Start 01/26/17 at 21:00 Sodium Chloride 1,000 ml @ 100 mls/hr Q10H IV Last administered on 01/29/17 09:06; Start 01/26/17 at 20:16 Sodium Chloride (NS Flush) 2 ml UNSCH PRN IV FLUSH FLUSH AFTER USING IV ACCESS ; Start 01/26/17 at 20:30 Sodium Chloride (NS Flush) 2 ml BID IV FLUSH Last administered on 01/29/17 09 :05; Start 01/26/17 at 21:00 Ondansetron HCl (Zofran Inj) 4 mg Q6H PRN IVP NAUSEA OR VOMITING; Start at 20:30 Acetaminophen (Tylenol) 650 mg Q6H PRN PO FEVER/PAIN SCALE 1 TO 2 Last administered on 01/29/17 09:04; Start 01/26/17 at 20:30 Acetaminophen/ Hydrocodone Bitart ([place] 5-325 Mg) 1 tab Q4H PRN PO PAIN SCALE 3 TO 5; Start 01/26/17 at 20:30 Acetaminophen/ Hydrocodone Bitart ([place] 10-325 Mg) 1 tab Q4H PRN PO PAIN SCALE 6 TO 10; Start 01/26/17 at 20:30 Senna/Docusate Sodium (Leelee-Colace) 1 tab BID PO Last administered on 09:05; Start 01/26/17 at 21:00 Magnesium Hydroxide (Milk Of Magnesia Liq) 30 ml Q12H PRN PO Mild constipation ; Start 01/26/17 at 20:30 Sennosides (Senokot) 17.2 mg Q12H PRN PO Moderate constipation; Start at 20:30 Bisacodyl (Dulcolax Supp) 10 mg DAILY PRN RECTAL SEVERE CONSITIPATION; Start 01/26/17 at 20:30 Lactulose (Lactulose Liq) 30 ml DAILY PRN PO SEVERE CONSITIPATION; Start 01/26 at 20:30 Carvedilol (Coreg) 6.25 mg DAILY PO Last administered on 01/29/17 09:04; Start 01/27/17 at 09:00 Pregabalin (Lyrica) 100 mg BID PO Last administered on 01/29/17 09:04; Start 01/26/17 at 21:00 Ropinirole HCl (Requip) 0.25 mg HS PO Last administered on 01/28/17 20:32; Start 01/26/17 at 21:00 Warfarin Sodium (Coumadin) 2.5 mg DAILY PO ; Start 01/27/17 at 09:00; Stop at 09:00; Status DC Warfarin Sodium (Coumadin) 2.5 mg DAILY@1600 PO Last administered on 18:07; Start 01/27/17 at 16:00 Lidocaine HCl (Lidoderm 5% Patch.12 Hr) 1 patch DAILY T-DERMAL Last administered on 12/20/17at 09:05; Start 01/27/17 at 12:00 Miscellaneous Information 1 Q24H T-DERMAL Last administered on 01/28/17t 20:33 ; Start 01/27/17 at 21:00 Nystatin (Mycostatin Powder) 1 applic Q12HR TOPICAL Last administered on t 09:06; Start 01/27/17 at 15:00 Patient Own Medication PT OWN MED: LINZ... DAILY PO ; Start 01/28/17 at 12:30; Status Future Hold A/P Problem List: (1) Generalized weakness ICD Code: R53.1 - Weakness (2) Gait instability ICD Code: R26.81 - Unsteadiness on feet (3) Bacteriuria ICD Code: R82.71 - Bacteriuria (4) JORJE (acute kidney injury) ICD Code: N17.9 - Acute kidney failure, unspecified (5) A-fib ICD Code: I48.91 - Unspecified atrial fibrillation (6) DM (diabetes mellitus) ICD Code: E11.9 - Type 2 diabetes mellitus without complications Assessment and Plan 76-year-old female complaining about inability to ambulate Inability to ambulate -Strength is intact from her baseline at the moment. No red flags noted. Patient was in rehabilitation prior for similar symptoms but now is receiving PT at home. -Contributing factor most likely secondary to patient being morbidly obese. -Recommend weight loss. -X-ray shows degenerative joint disease and high grade 1 anteriorlisthesis of L4 on 5. Hip x-ray shows degenerative joint disease. CT scan of the brain negative for any acute process. Clinically patient is doing better. MRI can be done as outpatient. -Neurologist consulted per sheet recommendations. Bacteriuria: -Patient asymptomatic. Urine cultures negative. Discontinue Rocephin. JORJE: Acute on Chronic. -Improved. Back to baseline. Avoid nephrotoxins. Continue to monitor creatinine. A-fib: - Chronic. Rate-controlled. On Coumadin, INR therapeutic at 2.6. Resume home medications. DM: - Sliding scale w/ Accu-Cheks. Transient hypoglycemia in ER, DVT Prophylaxis: Coumadin as above. Discharge Planning Patient scheduled for discharge tomorrow to SNF. Megha Hook MD Jan 29, 2017 10:19
[2017-01-29 12:28] VITALS: BP 120/68; PULSE 83; RESP 18; TEMP 98.5; O2SAT 97
[2017-01-29 16:04] VITALS: BP 133/66; PULSE 81; RESP 18; TEMP 98.5; O2SAT 94
[2017-01-29] MEDS: WARFARIN SOD 2.5 MG TAB PO SCH (16:52)
[2017-01-29] MEDS: REMOVE OLD LIDOCAINE PATCH T-DERMAL SCH (20:58)
[2017-01-29 22:50] VITALS: BP 163/86; PULSE 87; RESP 24; TEMP 97.9; O2SAT 95
[2017-01-30 00:41] VITALS: BP 118/57; PULSE 86; RESP 24; TEMP 97.8; O2SAT 94
[2017-01-30] MEDS: SODIUM CHLOR 0.9% 1000 ML INJ 1,000 ML IV SCH (01:13)
[2017-01-30] MEDS: ACETAMINOPHEN 325 MG TAB PO PRN (05:30)
[2017-01-30 06:11] VITALS: BP 178/77; PULSE 88; RESP 22; TEMP 97.5; O2SAT 96
[2017-01-30] MEDS ORDERED: NOVOLOGSS SQ (08:39)
[2017-01-30] MEDS: SODIUM CHLORIDE 0.9% FLUSH 10 ML FLUSH IV FLUSH SCH (09:00)
[2017-01-30] MEDS: DOCUSATE SODIUM 50 MG/SENNA 8.6 MG TAB PO SCH ×2 (09:00→09:51)
--- NOTE | 2017-01-30 09:06 | HHI.PR ---
Subjective Remarks Patient says she is feeling all right. Denies chest pain or shortness of breath. She reports last bowel movement on Friday, however denies constipation and does not want to have laxatives due to not wanting to have a bowel movement. Objective Vital Signs Date Time Temp Pulse Resp B/P (MAP) Pulse Ox O2 Delivery O2 Flow Rate FiO2 01/30/17 06:11 97.5 88 22 178/77 (110) 96 01/30/17 00:41 97.8 86 24 118/57 (77) 94 01/29/17 22:50 97.9 87 24 163/86 (111) 95 01/29/17 21:41 16 01/29/17 16:04 98.5 81 18 133/66 (88) 94 01/29/17 12:28 98.5 83 18 120/68 (85) 97 Result Diagram: 01/27/17 0339 01/28/17 0945 Imaging Last Impressions Hip and Pelvis X-Ray 01/28/17 0000 Signed Impressions: Service Date/Time: Saturday, January 28, 2017 21:21 - CONCLUSION: No fracture seen. Mild, symmetric, degenerative changes in the hips. Jamir Mcguire MD Head CT 01/28/17 0000 Signed Impressions: Service Date/Time: Saturday, January 28, 2017 17:16 - CONCLUSION: Normal examination. Charles Mortensen MD Sacrum and Coccyx X-Ray 01/27/17 0000 Signed Impressions: Service Date/Time: Friday, January 27, 2017 11:44 - CONCLUSION: Degenerative changes lumbar spine Sacrum intact Ceasar Reed MD FACR Lumbar Spine X-Ray 01/27/17 0000 Signed Impressions: Service Date/Time: Friday, January 27, 2017 11:46 - CONCLUSION: 1. High grade one anterolisthesis of L4 on 5 appears reduced due to facet hypertrophy and degeneration. 2. Wedge deformity of L1 with minimal impression on the superior endplate of L2 centrally both appear to be chronic. Clark Saldivar MD Chest X-Ray 01/26/17 8472 Signed Impressions: Service Date/Time: Thursday, January 26, 2017 17:56 - CONCLUSION: Normal examination. The right humeral head is elevated suggesting a right-sided rotator cuff tear Charles Mortensen MD Objective Remarks GENERAL: Patient sitting up in bed. Appears comfortable. SKIN: Warm and dry. HEAD: Normocephalic. EYES: No scleral icterus. No injection or drainage. NECK: Supple, trachea midline. No JVD CARDIOVASCULAR: Regular rate and rhythm without murmurs, gallops, or rubs. RESPIRATORY: Breath sounds equal bilaterally. No accessory muscle use. GASTROINTESTINAL: Abdomen soft, non-tender, nondistended. MUSCULOSKELETAL: No cyanosis, or edema. BACK: Nontender without obvious deformity. No CVA tenderness. A/P Assessment and Plan Inability to ambulate -Strength is intact from her baseline at the moment. No red flags noted. Patient was in rehabilitation prior for similar symptoms but now is receiving PT at home. -Contributing factor most likely secondary to patient being morbidly obese. -Recommend weight loss. -X-ray shows degenerative joint disease and high grade 1 anteriorlisthesis of L4 on 5. Hip x-ray shows degenerative joint disease. CT scan of the brain negative for any acute process. Clinically patient is doing better. MRI can be done as outpatient. -Neurologist consulted per sheet recommendations. = Follow-up with urology as outpatient. MRI as outpatient. //Constipation. = We'll order laxatives. //Bacteriuria: -Patient asymptomatic. Urine cultures negative. Discontinue Rocephin. //JORJE: Acute on Chronic. -Improved. Back to baseline. Avoid nephrotoxins. Continue to monitor creatinine. //A-fib: - Chronic. Rate-controlled. On Coumadin, INR therapeutic at 2.6. Resume home medications. //DM: - Sliding scale w/ Accu-Cheks. Transient hypoglycemia in ER, //DVT Prophylaxis: Coumadin as above. Discharge Planning Discharge to SNF Follow up with neurology. MRI as outpatient. Juwan Weber MD Jan 30, 2017 09:06
--- NOTE | 2017-01-30 09:06 | HHI.DS ---
Discharge Summary Admission Date Jan 27, 2017 at 15:50 Discharge Date: Jan 30, 2017 Admitting Diagnosis GENERALIZED WEANKESS (1) Generalized weakness ICD Code: R53.1 - Weakness (2) Gait instability ICD Code: R26.81 - Unsteadiness on feet (3) Bacteriuria ICD Code: R82.71 - Bacteriuria (4) JORJE (acute kidney injury) ICD Code: N17.9 - Acute kidney failure, unspecified (5) A-fib ICD Code: I48.91 - Unspecified atrial fibrillation (6) DM (diabetes mellitus) ICD Code: E11.9 - Type 2 diabetes mellitus without complications Procedures No invasive procedures Brief History - From Admission This is a 76-year-old female with a PMH of HTN, Cervical CA, Hyperlipidemia, COPD, CHF (Echo 03/12/15 w/ EF 50-55%), Peripheral Neuropathy, Sleep Apnea and DM who presented to the ER with complaints of generalized weakness x4 days. States symptoms progressively worse today, unable to ambulate due to weakness. Denies fever, chills, chest pain, cough or sick contacts. On arrival, BP 128/75 , HR 95, O2 sat 100% on RA, Afebrile. CBC unremarkable except for mildly elevated neutrophil count. Creatinine 1.39, previously 1.17 on 10/17/16. UA with significant bacteriuria. CXR normal, possible right-sided rotator cuff tear. Attempted ambulation while in ER, however pt unable to ambulate without assistance due to weakness. CBC/BMP: 01/27/17 0339 01/28/17 0945 Significant Findings Laboratory Tests Test 01/28/17 09:45 01/28/17 17:53 Blood Urea Nitrogen 20 MG/DL (7-18) Creatinine 1.16 MG/DL (0.50-1.00) Random Glucose 132 MG/DL (74-106) Chloride Level 109 MEQ/L (98-107) Estimat Glomerular Filtration Rate 45 ML/MIN (>89) Imaging Last Impressions Hip and Pelvis X-Ray 01/28/17 0000 Signed Impressions: Service Date/Time: Saturday, January 28, 2017 21:21 - CONCLUSION: No fracture seen. Mild, symmetric, degenerative changes in the hips. Jamir Mcguire MD Head CT 01/28/17 0000 Signed Impressions: Service Date/Time: Saturday, January 28, 2017 17:16 - CONCLUSION: Normal examination. Charles Mortensen MD Sacrum and Coccyx X-Ray 01/27/17 0000 Signed Impressions: Service Date/Time: Friday, January 27, 2017 11:44 - CONCLUSION: Degenerative changes lumbar spine Sacrum intact Ceasar Reed MD FACR Lumbar Spine X-Ray 01/27/17 0000 Signed Impressions: Service Date/Time: Friday, January 27, 2017 11:46 - CONCLUSION: 1. High grade one anterolisthesis of L4 on 5 appears reduced due to facet hypertrophy and degeneration. 2. Wedge deformity of L1 with minimal impression on the superior endplate of L2 centrally both appear to be chronic. Clark Saldivar MD Chest X-Ray 01/26/17 1744 Signed Impressions: Service Date/Time: Thursday, January 26, 2017 17:56 - CONCLUSION: Normal examination. The right humeral head is elevated suggesting a right-sided rotator cuff tear Charles Mortensen MD PE at Discharge GENERAL: in NAD CARDIOVASCULAR: Regular rate and rhythm without murmurs, gallops, or rubs. RESPIRATORY: Breath sounds equal bilaterally. No accessory muscle use. GASTROINTESTINAL: Abdomen soft, non-tender, nondistended. MUSCULOSKELETAL: 5 out of 5 lower extremity strength. Decrease lower extremity sensation but this is patient's baseline. Hospital Course Lumbar spine x-ray on admission shows high-grade anterolisthesis of L4 on L5. Neurology was consult. Head CT ordered and negative. Patient received physical therapy, and will require extensive physical therapy at rehabilitation. She'll need a follow-up with neurology as outpatient. Patient did report no bowel movement in 3 days with it which, however refuses laxatives until she gets to [facility] facility For problem-based summary from most recent progress note, please see below. Inability to ambulate -Strength is intact from her baseline at the moment. No red flags noted. Patient was in rehabilitation prior for similar symptoms but now is receiving PT at home. -Contributing factor most likely secondary to patient being morbidly obese. -Recommend weight loss. -X-ray shows degenerative joint disease and high grade 1 anteriorlisthesis of L4 on 5. Hip x-ray shows degenerative joint disease. CT scan of the brain negative for any acute process. Clinically patient is doing better. MRI can be done as outpatient. -Neurologist consulted per sheet recommendations. = Follow-up with urology as outpatient. MRI as outpatient. //Constipation. = We'll order laxatives. //Bacteriuria: -Patient asymptomatic. Urine cultures negative. Discontinue Rocephin. //JORJE: Acute on Chronic. -Improved. Back to baseline. Avoid nephrotoxins. Continue to monitor creatinine. //A-fib: - Chronic. Rate-controlled. On Coumadin, INR therapeutic at 2.6. Resume home medications. //DM: - Sliding scale w/ Accu-Cheks. Transient hypoglycemia in ER, //DVT Prophylaxis: Coumadin as above. Pt Condition on Discharge: Good Discharge Disposition: Discharge to SNF Discharge Time: > 30 minutes Discharge Instructions DIET: Follow Instructions for: Diabetic Diet Activities you can perform: Regular-No Restrictions Follow up Referrals: Neurology - 2 Weeks with Sofya Ospina MD New Medications: Insulin Aspart Inj (Novolog Inj) 100 Unit/Ml Inj 1 INJECTION SQ ACHS SLIDING SCALE for Blood Sugar Management for 30 Days, INJECTION Continued Medications: Acetaminophen (Eq Acetaminophen) 325 Mg Tab 650 MG PO Q4H PRN for Fever/ Pain 1-10 for 30 Days, #360 TAB Carvedilol (Coreg) 6.25 Mg Tab 6.25 MG PO DAILY, #30 TAB Linaclotide (Linzess) 290 Mcg Cap 290 MCG PO DAILY, CAP 0 Refills Potassium Bicarbonate Effervescent (Klor-Con EF) 25 Meq Tab 50 MEQ PO DAILY for Electrolyte Replacement, #30 TAB 0 Refills Pregabalin (Lyrica) 25 Mg Cap 50 MG PO TID, #90 CAP Pregabalin (Lyrica) 100 Mg Cap 100 MG PO BID, #60 CAP 0 Refills Ropinirole (Requip) 0.25 Mg Tab 0.25 MG PO HS, #30 TAB Torsemide (Torsemide) 20 Mg Tab 20 MG PO DAILY, #30 TAB 0 Refills Warfarin (Warfarin) 2.5 Mg Tab 2.5 MG PO DAILY for Blood Clot Prevention, #30 TAB 0 Refills Discontinued Medications: Insulin Degludec Inj (Tresiba Flextouch Pen Inj) 300 unit/3 ML Pen 80 UNITS SQ HS for Blood Sugar Management, #15 ML 0 Refills Insulin Detemir Inj (Levemir Inj) 1,000 unit/ 10 ML Vial 35 UNITS SQ DAILY for 30 Days, INJECTION Do not mix with any other Insulin. Juwan Weber MD Jan 30, 2017 09:06
[2017-01-30] MEDS: INSULIN ASPART SUPPLEMENTAL SCALE SQ SCH (09:50)
[2017-01-30] MEDS: NYSTATIN 100,000 U/GM PWD 15 GM BTL TOPICAL SCH (09:50)
[2017-01-30] MEDS: CARVEDILOL 6.25 MG TAB PO SCH (09:51)
[2017-01-30] MEDS: MAGNESIUM HYDROXIDE SUSP 30 ML CUP PO ONE ×2 (09:51→09:55)
[2017-01-30] MEDS: LIDOCAINE HCL 5% PATCH T-DERMAL SCH (09:51)
[2017-01-30] MEDS: PREGABALIN 100 MG CAP PO SCH (09:51)
[2017-01-30] MEDS: DOCUSATE SODIUM 50 MG/SENNA 8.6 MG TAB PO ONE ×2 (09:54→09:58)
[2017-01-30 11:28] VITALS: BP 126/80; PULSE 68; TEMP 98.2; O2SAT 97
[2017-02-01 03:50] LABS: VITAMIN B6 LESS THAN 2.0 ng/mL (2.1-21.7)
== END 2017-01-30 12:42 | DRG 556 ==
LOC: NEPE 17:24 → NEDA 20:16 → NEPGCP 22:09 → OBSVTOIN 01-27 15:50
PROVIDERS: ADMIT Hospitalist; ATTEND Internal Medicine
DX: R26.2 Difficulty in walking, not elsewhere classified (principal); N17.9 Acute kidney failure, unspecified; E11.42 Type 2 diabetes mellitus with diabetic polyneuropathy; E11.649 Type 2 diabetes mellitus with hypoglycemia without coma; I11.0 Hypertensive heart disease with heart failure; I50.9 Heart failure, unspecified; Z68.42 Body mass index [BMI] 45.0-49.9, adult; E66.01 Morbid (severe) obesity due to excess calories; R53.1 Weakness; I48.2 Chronic atrial fibrillation; R82.71 Bacteriuria; E78.5 Hyperlipidemia, unspecified; J44.9 Chronic obstructive pulmonary disease, unspecified; K59.00 Constipation, unspecified; G89.29 Other chronic pain; M43.16 Spondylolisthesis, lumbar region; G47.30 Sleep apnea, unspecified; Z85.41 Personal history of malignant neoplasm of cervix uteri; Z79.4 Long term (current) use of insulin; Z71.3 Dietary counseling and surveillance; Z87.891 Personal history of nicotine dependence; Z79.01 Long term (current) use of anticoagulants
CPT/HCPCS: 70450; 71010; 72100; 72220; 73502; 80048; 80053; 81001; 82607; 82948; 83880; 84207; 84425; 84443; 85025; 85610; 85730; 87086; 93005; G8987-GP; G8988-GP; J0696; J1815; J7030

== ENCOUNTER 2017-10-29 08:48 | Inpatient (IN) ==
[2017-10-29] MEDS ORDERED: Morphine Sulfate Inj 8 MG/ML Vial IV.PUSH ONE (09:20)
--- NOTE | 2017-10-29 09:42 | ED ---
HPI General Chief complaint: Weakness Stated complaint: weakness Time Seen by Provider: 10/29/17 09:09 Source: patient, old records reviewed and other (Dr Walters) Mode of arrival: EMS Limitations: physical limitation History of Present Illness HPI narrative: Patient is a morbidly obese 77-year-old female with a BMI of 50 that came because of generalized pain mostly on her lower legs where she has chronic venous stasis wounds and is followed by Dr. Flores public information specialist. She was actually supposed to go there today but instead of going to the office she came here because she had pain. Patient is requesting something to eat and pain medications. Does not elevate a heart rate of 101. Afebrile. Location: lower extremity (Bilateral) Radiation: non-radiation Severity: mild and severe Severity scale (1-10): 10 Quality: aching Pain Consistency: constant Relieving factors: none Exacerbating factors: movement Related Data Home Medications Medication Instructions Recorded Confirmed carvedilol See Label Instructions .ROUTE 10/29/17 10/29/17 .COMPLEX furosemide [Lasix] 40 mg PO BID 10/29/17 10/29/17 linaclotide [Linzess] 290 mcg PO DAILY 10/29/17 10/29/17 metolazone 2.5 mg PO DAILY 10/29/17 10/29/17 potassium chloride See Label Instructions .ROUTE 10/29/17 10/29/17 .COMPLEX pregabalin [Lyrica] 100 mg PO BID 10/29/17 10/29/17 ropinirole 0.25 mg PO DAILY 10/29/17 10/29/17 warfarin 5 mg PO DAILY 10/29/17 10/29/17 Allergies Allergy/AdvReac Type Severity Reaction Status Date / Time *MDRO Multi-Drug Resistant AdvReac Unknown Uncoded 01/26/17 17:39 Organism Review of Systems ROS: all other systems reviewed are negative [facility] Medical History Medical History Atrial fibrillation (Acute) Chronic cutaneous venous stasis ulcer (Acute) Congestive heart failure (Acute) History of MRSA infection (Acute) Hyperlipidemia (Acute) Hypertension (Acute) Morbidly obese (Acute) Neuropathy (Acute) Obstructive sleep apnea (Acute) Type 2 diabetes mellitus (Acute) Urinary incontinence (Acute) Family History Family History Other Family history non-contributory Social History Social History Substance History: Active Abuse (smokes occ. mattyana ) Second Hand Smoke Exposure: No Smoking Status: Former smoker (quit many years ago) How Often Do You Have a Drink Containing Alcohol: Monthly or less Recent Travel in [facility] within the Last 8 Weeks: No Recent Out of Country Travel within the Last 8 Weeks: No Immunization History Tetanus Immunization: Unsure Exam Narrative Exam Narrative: GENERAL: Alert and oriented in distress due to pain SKIN: Chronic venous stasis wounds on lower extremities bilateral with excoriation macerated tissue. Weeping serous liquid. Fetid odor. Tender to palpation. Appears to have lymphedema. HEAD: Atraumatic. Normocephalic. EYES: Pupils equal and round. No scleral icterus. No injection or drainage. ENT: No nasal bleeding or discharge. Mucous membranes pink and moist. NECK: Trachea midline. No JVD. CARDIOVASCULAR: Regular rate and rhythm. No murmur appreciated. RESPIRATORY: No accessory muscle use. Clear to auscultation. Breath sounds equal bilaterally. GASTROINTESTINAL: Abdomen soft, morbidly obese non-tender, nondistended. Hepatic and splenic margins not palpable. MUSCULOSKELETAL: Severe pitting edema venous stasis changes NEUROLOGICAL: Awake and alert. No obvious cranial nerve deficits. Motor grossly within normal limits. Normal speech. PSYCHIATRIC: Appropriate mood and affect; insight and judgment normal. Course Hospital Course: Patient Reevaluation(s) Reevaluation #1: Patient still in pain no relief after she received IV morphine will give p.o. Dilaudid Time: 10:15 Reevaluation #2: Patient states she still has pain we will give IV Dilaudid Time: 12:01 Reevaluation #3: Patient lives alone has a home health care nurse that comes in between 7 and 9 however after evaluating it appears that she needs a little more fpc than just 2 hours in the a.m. she is super morbidly obese she is not able to ambulate without assistance she has severe venous stasis changes and chronic wounds of bilateral legs so patient may benefit from a placement. Time: 12:53 Consultations Consultation #1: Dr. Rain the patient's wound care physician called us and recommends ABD pads right now and if she gets admitted to consult wound care nurse. Time: 09:42 Initial Documented Vital Signs Temperature 99.4 F 10/29/17 08:52 Pulse Rate 101 H 10/29/17 08:52 Respiratory Rate 18 10/29/17 08:52 Blood Pressure 127/63 10/29/17 08:52 Pulse Oximetry 96 10/29/17 08:52 Last Documented Vital Signs Temperature 98.3 F 10/29/17 18:10 Pulse Rate 99 H 10/29/17 18:10 Respiratory Rate 16 10/29/17 18:10 Blood Pressure 137/74 10/29/17 18:10 Pulse Oximetry 94 L 10/29/17 18:10 Medical Decision Making MDM Narrative Medical decision making narrative: No leukocytosis or bandemia noted. Afebrile. Tachycardia was noted. No lactic acidosis creatinine 1.03. BUN 23 patient was advised to increase her fluid intake. Wound cultures were sent and I personally spoke to her public information specialist who recommended having her follow-up when she gets discharged. Medical Screen Exam Complete: Yes Emergency Medical Condition: Yes Medical Records Medical records reviewed: Yes I reviewed the patient's medical records. Lab Data Lab results reviewed: Yes I reviewed the patient's lab results. Result diagrams: 10/29/17 09:33 10/29/17 09:33 Lab Results 10/29/17 10/29/17 10/29/17 Range/Units 09:33 09:33 09:33 WBC 9.6 (4.0-11.0) th/mm3 RBC 4.32 (4.00-5.30) mil/mm3 Hgb 11.1 L (11.6-15.3) gm/dL Hct 34.3 L (35.0-46.0) % MCV 79.5 L (80.0-100.0) fL MCH 25.6 L (27.0-34.0) pg MCHC 32.2 (32.0-36.0) % RDW 17.3 H (11.6-17.2) % Plt Count 312 (150-450) th/mm3 MPV 7.5 (7.0-11.0) fL Neut % (Auto) 83.4 H (16.0-70.0) % Lymph % (Auto) 8.9 L (9.0-44.0) % [place] % (Auto) 7.1 (0.0-8.0) % Eos % (Auto) 0.2 (0.0-4.0) % Baso % (Auto) 0.4 (0.0-2.0) % Neut # (Auto) 8.0 H (1.8-7.7) th/mm3 Lymph # (Auto) 0.9 L (1.0-4.8) th/mm3 [place] # (Auto) 0.7 (0.0-0.9) th/mm3 Eos # (Auto) 0.0 (0.0-0.4) th/mm3 Baso # (Auto) 0.0 (0.0-0.2) th/mm3 WBC Differential . Differential Comment Auto diff final PT 15.9 H (9.8-11.6) sec INR 1.6 Ratio APTT 31.7 H (24.3-30.1) sec Sodium 133 L (136-145) meq/L Potassium 3.4 L (3.5-5.1) meq/L Chloride 96 L (98-107) meq/L Carbon Dioxide 32.2 H (21.0-32.0) meq/L Anion Gap 5 (5-15) meq/L BUN 23 H (7-18) mg/dL Creatinine 1.03 H (0.50-1.00) mg/dL Estimated GFR 52 L (>89) mL/min POC Glucose (68-110) mg/dl Random Glucose 109 H (74-106) mg/dL Lactic Acid (0.4-2.0) mmol/L Calcium 8.5 (8.5-10.1) mg/dL Total Bilirubin 0.8 (0.2-1.0) mg/dL AST 13 L (15-37) U/L ALT 12 (10-53) U/L Alkaline Phosphatase 79 (45-117) U/L Troponin I Less than 0.02 L (0.02-0.05) ng/mL Total Protein 7.4 (6.4-8.2) g/dL Albumin 2.2 L (3.4-5.0) g/dL Urine Color (Yellw/Straw) Urine Clarity (Clear) Urine pH (5.0-8.5) Ur Specific [place] (1.002-1.035) Urine Protein (Neg-Trace) mg/dL Urine Glucose (UA) (Negative) mg/dL Urine Ketones (Negative) mg/dL Urine Occult Blood (Negative) Urine Nitrate (Negative) Urine Bilirubin (Negative) Urine Urobilinogen (Less than 2) mg/dL Ur Leukocyte Esterase (Negative) Urine RBC (0-3) /hpf Urine WBC (0-5) /hpf Ur Squamous Epith Cells (0-5) /hpf Urine Bacteria (None) /hpf Micro UA Comment Ur Microscopic Review Urine Culture Comments 10/29/17 10/29/17 10/29/17 Range/Units 09:33 15:48 17:18 WBC (4.0-11.0) th/mm3 RBC (4.00-5.30) mil/mm3 Hgb (11.6-15.3) gm/dL Hct (35.0-46.0) % MCV (80.0-100.0) fL MCH (27.0-34.0) pg MCHC (32.0-36.0) % RDW (11.6-17.2) % Plt Count (150-450) th/mm3 MPV (7.0-11.0) fL Neut % (Auto) (16.0-70.0) % Lymph % (Auto) (9.0-44.0) % [place] % (Auto) (0.0-8.0) % Eos % (Auto) (0.0-4.0) % Baso % (Auto) (0.0-2.0) % Neut # (Auto) (1.8-7.7) th/mm3 Lymph # (Auto) (1.0-4.8) th/mm3 [place] # (Auto) (0.0-0.9) th/mm3 Eos # (Auto) (0.0-0.4) th/mm3 Baso # (Auto) (0.0-0.2) th/mm3 WBC Differential Differential Comment PT (9.8-11.6) sec INR Ratio APTT (24.3-30.1) sec Sodium (136-145) meq/L Potassium (3.5-5.1) meq/L Chloride (98-107) meq/L Carbon Dioxide (21.0-32.0) meq/L Anion Gap (5-15) meq/L BUN (7-18) mg/dL Creatinine (0.50-1.00) mg/dL Estimated GFR (>89) mL/min POC Glucose 69 131 H (68-110) mg/dl Random Glucose (74-106) mg/dL Lactic Acid 1.5 (0.4-2.0) mmol/L Calcium (8.5-10.1) mg/dL Total Bilirubin (0.2-1.0) mg/dL AST (15-37) U/L ALT (10-53) U/L Alkaline Phosphatase (45-117) U/L Troponin I (0.02-0.05) ng/mL Total Protein (6.4-8.2) g/dL Albumin (3.4-5.0) g/dL Urine Color (Yellw/Straw) Urine Clarity (Clear) Urine pH (5.0-8.5) Ur Specific [place] (1.002-1.035) Urine Protein (Neg-Trace) mg/dL Urine Glucose (UA) (Negative) mg/dL Urine Ketones (Negative) mg/dL Urine Occult Blood (Negative) Urine Nitrate (Negative) Urine Bilirubin (Negative) Urine Urobilinogen (Less than 2) mg/dL Ur Leukocyte Esterase (Negative) Urine RBC (0-3) /hpf Urine WBC (0-5) /hpf Ur Squamous Epith Cells (0-5) /hpf Urine Bacteria (None) /hpf Micro UA Comment Ur Microscopic Review Urine Culture Comments 10/29/17 Range/Units Unknown WBC (4.0-11.0) th/mm3 RBC (4.00-5.30) mil/mm3 Hgb (11.6-15.3) gm/dL Hct (35.0-46.0) % MCV (80.0-100.0) fL MCH (27.0-34.0) pg MCHC (32.0-36.0) % RDW (11.6-17.2) % Plt Count (150-450) th/mm3 MPV (7.0-11.0) fL Neut % (Auto) (16.0-70.0) % Lymph % (Auto) (9.0-44.0) % [place] % (Auto) (0.0-8.0) % Eos % (Auto) (0.0-4.0) % Baso % (Auto) (0.0-2.0) % Neut # (Auto) (1.8-7.7) th/mm3 Lymph # (Auto) (1.0-4.8) th/mm3 [place] # (Auto) (0.0-0.9) th/mm3 Eos # (Auto) (0.0-0.4) th/mm3 Baso # (Auto) (0.0-0.2) th/mm3 WBC Differential Differential Comment PT (9.8-11.6) sec INR Ratio APTT (24.3-30.1) sec Sodium (136-145) meq/L Potassium (3.5-5.1) meq/L Chloride (98-107) meq/L Carbon Dioxide (21.0-32.0) meq/L Anion Gap (5-15) meq/L BUN (7-18) mg/dL Creatinine (0.50-1.00) mg/dL Estimated GFR (>89) mL/min POC Glucose (68-110) mg/dl Random Glucose (74-106) mg/dL Lactic Acid (0.4-2.0) mmol/L Calcium (8.5-10.1) mg/dL Total Bilirubin (0.2-1.0) mg/dL AST (15-37) U/L ALT (10-53) U/L Alkaline Phosphatase (45-117) U/L Troponin I (0.02-0.05) ng/mL Total Protein (6.4-8.2) g/dL Albumin (3.4-5.0) g/dL Urine Color Yellow (Yellw/Straw) Urine Clarity Clear (Clear) Urine pH 6.0 (5.0-8.5) Ur Specific [place] 1.015 (1.002-1.035) Urine Protein 30 H (Neg-Trace) mg/dL Urine Glucose (UA) Negative (Negative) mg/dL Urine Ketones Negative (Negative) mg/dL Urine Occult Blood Small H (Negative) Urine Nitrate Negative (Negative) Urine Bilirubin Negative (Negative) Urine Urobilinogen 2.0 H (Less than 2) mg/dL Ur Leukocyte Esterase Negative (Negative) Urine RBC 1 (0-3) /hpf Urine WBC 2 (0-5) /hpf Ur Squamous Epith Cells <1 (0-5) /hpf Urine Bacteria Rare H (None) /hpf Micro UA Comment Cath-culture ind Ur Microscopic Review Not Reportable Urine Culture Comments Cath-cult indicated Imaging Data Radiologist's impression: Chest X-Ray 10/29/17 09:20 CONCLUSION: Lungs are clear. No infiltrate or mass. Bilateral rotator cuff tears Discharge Plan Discharge Disposition Patient Disposition: 30 Still Patient Discharge Details Diagnosis: Intractable pain, Chronic cutaneous venous stasis ulcer, Physical debility, Morbid obesity Physicians Team ED Provider: Nigel Nagel Primary Care Provider: Megan Strong Attending Provider: Felipe Hinton Other Providers: [place] Discharge Interventions Interventions: ED Discharge Assessment Last Done: 10/29/17 18:03 Vital Signs Last Done: 10/29/17 11:31 Discharge Planning - Case Management Last Done: 10/29/17 16:35 Status ED Status: Left Department Discharge Information Discharge Date/Time: 10/29/17 18:04
[2017-10-29] MEDS ORDERED: Morphine Inj 4 MG/ML Vial IV.PUSH ONE (09:43)
--- NOTE | 2017-10-29 09:58 | XR ---
EXAM DATE: 10/29/2017 9:53 AM EDT AGE/SEX: 77 years / Female INDICATIONS: Productive cough and fever. CLINICAL DATA: This is the patient's initial encounter. Patient reports that signs and symptoms have been present for 1 day and indicates a pain score of 0/10. MEDICAL/SURGICAL HISTORY: . Cardiovascular disease. Hypertension. Chronic obstructive pulmonary disease. cervical cancer, diabetic . Cholecystectomy. Hysterectomy. COMPARISON: [facility] [place], CHEST SINGLE AP, 01/26/2017. . FINDINGS: A single AP view of the chest demonstrates the lungs to be symmetrically aerated without evidence of mass, infiltrate or effusion. The cardiomediastinal contours are unremarkable. Osseous structures a re intact. Bilateral rotator cuff tears CONCLUSION: Lungs are clear. No infiltrate or mass. Bilateral rotator cuff tears Electronically signed by: Charles Mortensen MD 10/29/2017 9:57 AM EDT
[2017-10-29 10:02] LABS: Baso % (Auto) 0.4 % (0.0-2.0); Eos % (Auto) 0.2 % (0.0-4.0); Hematocrit 34.3 % (35.0-46.0); Hemoglobin 11.1 gm/dL (11.6-15.3); Lymph # (Auto) 0.9 th/mm3 (1.0-4.8); Lymph % (Auto) 8.9 % (9.0-44.0); Mean Corpuscular HGB Conc 32.2 % (32.0-36.0); Mean Corpuscular Hemoglobin 25.6 pg (27.0-34.0); Mean Corpuscular Volume 79.5 fL (80.0-100.0); Mean Platelet Volume 7.5 fL (7.0-11.0); Mono # (Auto) 0.7 th/mm3 (0.0-0.9); Mono % (Auto) 7.1 % (0.0-8.0); Neut % (Auto) 83.4 % (16.0-70.0); Platelet Count 312 th/mm3 (150-450); Red Blood Count 4.32 mil/mm3 (4.00-5.30); Red Cell Distribution Width 17.3 % (11.6-17.2); White Blood Count 9.6 th/mm3 (4.0-11.0)
[2017-10-29 10:11] LABS: Activated Partial Thrombo Time 31.7 sec (24.3-30.1); INR 1.6 Ratio; Prothrombin Time 15.9 sec (9.8-11.6)
[2017-10-29 10:17] LABS: Albumin 2.2 g/dL (3.4-5.0); Anion Gap 5 meq/L (5-15); Aspartate Aminotransferase 13 U/L (15-37); Blood Urea Nitrogen 23 mg/dL (7-18); Calcium 8.5 mg/dL (8.5-10.1); Carbon Dioxide 32.2 meq/L (21.0-32.0); Chloride 96 meq/L (98-107); Glomerular Filtration Rate 52 mL/min (>89); Glucose,Random 109 mg/dL (74-106); Potassium 3.4 meq/L (3.5-5.1); Sodium 133 meq/L (136-145)
[2017-10-29 10:21] LABS: Alanine Aminotransferase 12 U/L (10-53); Alkaline Phosphatase 79 U/L (45-117); Total Protein 7.4 g/dL (6.4-8.2)
[2017-10-29] MEDS ORDERED: HYDROmorphone PF Inj 4 MG/ML Ampul IV.PUSH ONE (12:15)
[2017-10-29 16:20] LABS: Bacteria,Urine Rare /hpf; Bilirubin,Urine Negative (Negative); Clarity,Urine Clear (Clear); Color,Urine Yellow (Yellw/Straw); Glucose,Urine (UA) Negative (Negative); Leukocyte Esterase,Urine Negative (Negative); Nitrite,Urine Negative (Negative); Specific Gravity,Urine 1.015 (1.002-1.035); Squamous Epithelial Cell,Urine <1 /hpf (0-5)
[2017-10-29] MEDS ORDERED: Acetaminophen 325 MG Tablet PO PRN (16:34)
[2017-10-29] MEDS ORDERED: Bisacodyl 10 MG Supp RECTAL PRN (16:34)
[2017-10-29] MEDS ORDERED: Dextrose 50% in Water 50 ML Vial IV.PUSH PRN (16:42)
[2017-10-29] MEDS ORDERED: Heparin - SQ 10,000 UNITS/ML Vial SQ SCH (16:45)
[2017-10-29] MEDS ORDERED: HYDROmorphone PF Inj 2 MG/ML Vial IV.PUSH ONE (17:07)
--- NOTE | 2017-10-29 17:15 | P.HP ---
History of Present Illness Service: [facility] Primary Care Physician: Megan Strong MD Chief Complaint: weakness, leg pain History of Present Illness: This is a 77-year-old female with significant past medical history of chronic venous stasis ulcer wounds, morbid obesity, type 2 diabetes, A. fib, obstructive sleep apnea, congestive heart failure, atrial fibrillation, neuropathy, hypertension, chronic kidney disease. Patient presented to the emergency room complaining of weakness and increasing pain to her legs. Patient indicates that she has had chronic venous stasis wounds for many years and follows up with Dr. Sebastian as outpatient. Patient indicates that she has [facility] home health care who has been coming to do daily dressing changes however she was dropped from their services a couple of weeks ago. She called hospice and they came and helped her out and did some wound care which was done yesterday. Today she was due to see Dr. Sebastian however she was unable to get out of bed and had increasing pain therefore her home health aide decided to call [facility] and patient was brought into the hospital. She has a home health aid who comes in 2 hours a day from Friday through Friday to help with ADLs. Patient indicates she has increasing pain to the right leg and right buttock, this is chronic however it was severe today. States that she does not mobilize very much and has a motorized wheelchair. She denies any fever, no chills. No chest pain, no shortness of breath, no nausea, no vomiting, no diarrhea. Appetite has been poor because of the increasing pain. Patient was evaluated in the emergency room, laboratory workup was completed. She has a history of chronic kidney disease, BUN and creatinine appear to be at baseline, 23/1.03. She was noted hypokalemic, potassium 3.4. Lactic acid was 1.5. Blood cultures were obtained. Urinalysis showed mild bacteriuria. Chest x-ray did not reveal any acute findings. Pt. states she doesn't take her Lasix regularly and recently Metolazone was added to improve diuresing. Patient was given hydromorphone 2 mg as well as 4 mg of morphine. Pain slightly improved. Pt. states she can't manage her wound care at home and is concerned about discharge. Case management has evaluated for possible placement at SNF. ED physician called Dr. Sebastian and she recommended wound care consult and f/u as OP when pt is discharged. Pt. is admitted for further evaluation and treatment. 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 - Medical History Medical History: Medical History (Last Reviewed 10/29/17 @ 17:15 by YOMAIRA Healy) Atrial fibrillation Chronic cutaneous venous stasis ulcer Congestive heart failure History of MRSA infection Hyperlipidemia Hypertension Morbidly obese Neuropathy Obstructive sleep apnea Type 2 diabetes mellitus Urinary incontinence - Surgical History Surgical History: Surgical History (Last Reviewed 10/29/17 @ 17:16 by YOMAIRA Healy) Hx of cholecystectomy Hx of laparoscopic gastric banding Hx of tubal ligation - Family History Family History: Family History (Last Updated 10/29/17 @ 17:16 by YOMAIRA Healy) Other Family history non-contributory - Social History I have reviewed the patient's Social History: Yes - Tobacco History Second Hand Smoke Exposure: No Tobacco Use In Past 30 Days: No Smoking Status: Former smoker (quit many years ago) - Alcohol History How Often Do You Have a Drink Containing Alcohol: Monthly or less - Substance Use History Substance History: Active Abuse (smokes occ. marihuana ) - Travel History Recent Travel in the [facility] Within the Last 8 Weeks: No Recent Travel Out of the Country Within the Last 8 Weeks: No - Immunization History Tetanus Immunization: Unsure Medications and Allergies Active Medications: Active Medications Acetaminophen (Tylenol) 650 mg PO Q4H PRN PRN Reason: Temp > 100.4 Al Hydroxide/Mg Hydroxide (Milk Of Magnesia Liq) 30 ml PO Q12H PRN PRN Reason: Mild Constipation Bisacodyl (Dulcolax Supp) 10 mg RECTAL DAILY PRN PRN Reason: SEVERE CONSITIPATION Dextrose (D50w Vial) 50 ml IV.PUSH UNSCH PRN PRN Reason: PER HYPOGLYCEMIA PROTOCOL Furosemide (Lasix) 40 mg PO DAILY MICHOACANO Glucagon (Glucagon Inj) 1 mg OTHER UNSCH PRN PRN Reason: for Hypoglycemia Protocol Insulin Aspart (Novolog Insulin Correctional Sugar Inj) 0 unit SQ ACHS MICHOACANO; Protocol Lactulose (Lactulose Liq) 30 ml PO DAILY PRN PRN Reason: SEVERE CONSITIPATION Metolazone (Zaroxolyn) 2.5 mg PO DAILY [place]ANO Ondansetron HCl (Zofran Inj) 4 mg IV.PUSH Q6H PRN PRN Reason: NAUSEA OR VOMITING Potassium Bicarb/Potassium Chloride (K-Lyte Cl Eff) 25 meq PO ONCE ONE Stop: 10/29/17 17:31 Pregabalin (Lyrica) 100 mg PO BID MICHOACANO Ropinirole HCl (Requip) 0.25 mg PO DAILY MICHOACANO Senna/Docusate Sodium (Leelee-Colace) 1 tab PO BID MICHOACANO Sennosides (Senokot) 17.2 mg PO Q12H PRN PRN Reason: Moderate Constipation Warfarin Sodium (Coumadin) 5 mg PO DAILY MICHOACANO Allergies Allergy/AdvReac Type Severity Reaction Status Date / Time *MDRO Multi-Drug Resistant AdvReac Unknown Uncoded 01/26/17 17:39 Organism Home Medications Medication Instructions Recorded Confirmed Type carvedilol See Label Instructions .ROUTE 10/29/17 10/29/17 History .COMPLEX furosemide [Lasix] 40 mg PO BID 10/29/17 10/29/17 History linaclotide [Linzess] 290 mcg PO DAILY 10/29/17 10/29/17 History metolazone 2.5 mg PO DAILY 10/29/17 10/29/17 History potassium chloride See Label Instructions .ROUTE 10/29/17 10/29/17 History .COMPLEX pregabalin [Lyrica] 100 mg PO BID 10/29/17 10/29/17 History ropinirole 0.25 mg PO DAILY 10/29/17 10/29/17 History warfarin 5 mg PO DAILY 10/29/17 10/29/17 History Exam Vital signs: Vital Signs 10/29/17 08:52 10/29/17 11:31 Temperature 99.4 F Pulse Rate 101 H 100 H Respiratory Rate 18 24 Blood Pressure 127/63 Pulse Oximetry 96 96 Intake & Output 10/28/17 10/29/17 10/29/17 18:59 06:59 18:59 Weight 145.15 kg Narrative: GENERAL: 77-year-old morbidly obese female, grimacing in pain. SKIN: Chronic venous stasis ulcers noted to both lower extremities around calf area. Serous exudate is noted. HEAD: Atraumatic. Normocephalic. EYES: Pupils equal and round. No scleral icterus. No injection or drainage. ENT: No nasal bleeding or discharge. Mucous membranes pink and moist. NECK: Trachea midline. No JVD. CARDIOVASCULAR: Regular rate and rhythm. RESPIRATORY: No accessory muscle use. Clear to auscultation. Breath sounds equal bilaterally. GASTROINTESTINAL: Abdomen soft, non-tender, nondistended. Hepatic and splenic margins not palpable. MUSCULOSKELETAL: Extremities without clubbing, cyanosis. Bilateral pedal pulses 1+ bilaterally. 2-3+ pitting edema. No obvious deformities. NEUROLOGICAL: Awake and alert. No obvious cranial nerve deficits. Motor grossly within normal limits. Five out of 5 muscle strength in the arms and legs. Normal speech. PSYCHIATRIC: Appropriate mood and affect; insight and judgment normal. Results - Labs CBC & Chem 7: 10/29/17 09:33 10/29/17 09:33 Labs: Laboratory Results - last 24 hr 10/29/17 10/29/17 10/29/17 09:33 09:33 09:33 WBC 9.6 RBC 4.32 Hgb 11.1 L Hct 34.3 L MCV 79.5 L MCH 25.6 L MCHC 32.2 RDW 17.3 H Plt Count 312 MPV 7.5 Neut % (Auto) 83.4 H Lymph % (Auto) 8.9 L [place] % (Auto) 7.1 Eos % (Auto) 0.2 Baso % (Auto) 0.4 Neut # (Auto) 8.0 H Lymph # (Auto) 0.9 L [place] # (Auto) 0.7 Eos # (Auto) 0.0 Baso # (Auto) 0.0 WBC Differential . Differential Comment Auto diff final PT 15.9 H INR 1.6 APTT 31.7 H Sodium 133 L Potassium 3.4 L Chloride 96 L Carbon Dioxide 32.2 H Anion Gap 5 BUN 23 H Creatinine 1.03 H Estimated GFR 52 L POC Glucose Random Glucose 109 H Lactic Acid Calcium 8.5 Total Bilirubin 0.8 AST 13 L ALT 12 Alkaline Phosphatase 79 Troponin I Less than 0.02 L Total Protein 7.4 Albumin 2.2 L Urine Color Urine Clarity Urine pH Ur Specific [place] Urine Protein Urine Glucose (UA) Urine Ketones Urine Occult Blood Urine Nitrate Urine Bilirubin Urine Urobilinogen Ur Leukocyte Esterase Urine RBC Urine WBC Ur Squamous Epith Cells Urine Bacteria Micro UA Comment Ur Microscopic Review Urine Culture Comments 10/29/17 10/29/17 10/29/17 09:33 15:48 Unknown WBC RBC Hgb Hct MCV MCH MCHC RDW Plt Count MPV Neut % (Auto) Lymph % (Auto) [place] % (Auto) Eos % (Auto) Baso % (Auto) Neut # (Auto) Lymph # (Auto) [place] # (Auto) Eos # (Auto) Baso # (Auto) WBC Differential Differential Comment PT INR APTT Sodium Potassium Chloride Carbon Dioxide Anion Gap BUN Creatinine Estimated GFR POC Glucose 69 Random Glucose Lactic Acid 1.5 Calcium Total Bilirubin AST ALT Alkaline Phosphatase Troponin I Total Protein Albumin Urine Color Yellow Urine Clarity Clear Urine pH 6.0 Ur Specific [place] 1.015 Urine Protein 30 H Urine Glucose (UA) Negative Urine Ketones Negative Urine Occult Blood Small H Urine Nitrate Negative Urine Bilirubin Negative Urine Urobilinogen 2.0 H Ur Leukocyte Esterase Negative Urine RBC 1 Urine WBC 2 Ur Squamous Epith Cells <1 Urine Bacteria Rare H Micro UA Comment Cath-culture ind Ur Microscopic Review Not Reportable Urine Culture Comments Cath-cult indicated - Imaging Impressions Chest X-Ray 10/29/17 09:20 CONCLUSION: Lungs are clear. No infiltrate or mass. Bilateral rotator cuff tears Caprini VTE Risk Assessment Caprini VTE Risk Assessment: Moderate/High Risk (score >= 2) Caprini Risk Assessment Model: Point Value = 1 Point Value = 2 Point Value = 3 Point Value = 5 Age 41-60 Minor surgery BMI > 25 kg/m2 Swollen legs Varicose veins or History of unexplained or recurrent spontaneous Oral contraceptives or hormone replacement Sepsis (< 1 month) Serious lung disease, including pneumonia (< 1 month) Abnormal pulmonary function Acute myocardial infarction Congestive heart failure (< 1 month) History of inflammatory bowel disease Medical patient at bed rest Age 61-74 Arthroscopic surgery Major open surgery (> 45 min) Laparoscopic surgery (> 45 min) Malignancy Confined to bed (> 72 hours) Immobilizing plaster cast Central venous access Age >= 75 History of VTE Family history of VTE Factor V Leiden Prothrombin [id number] Lupus anticoagulant Anticardiolipin antibodies Elevated serum homocysteine Heparin-induced thrombocytopenia Other congenital or acquired thrombophilia Stroke (< 1 month) Elective arthroplasty Hip, pelvis, or leg fracture Acute spinal cord injury (< 1 month) Prophylaxis Regimen: Total Risk Factor Score Risk Level Prophylaxis Regimen 0-1 Low Early ambulation 2 Moderate Order ONE of the following: *Sequential Compression Device (SCD) *Heparin 5000 units SQ BID 3-4 Higher Order ONE of the following medications: *Heparin 5000 units SQ TID *Enoxaparin/Lovenox 40 mg SQ daily (WT < 150 kg, CrCl > 30 mL/min) *Enoxaparin/Lovenox 30 mg SQ daily (WT < 150 kg, CrCl > 10-29 mL/min) *Enoxaparin/Lovenox 30 mg SQ BID (WT < 150 kg, CrCl > 30 mL/min) AND/OR *Sequential Compression Device (SCD) 5 or more Highest Order ONE of the following medications: *Heparin 5000 units SQ TID (Preferred with Epidurals) *Enoxaparin/Lovenox 40 mg SQ daily (WT < 150 kg, CrCl > 30 mL/min) *Enoxaparin/Lovenox 30 mg SQ daily (WT < 150 kg, CrCl > 10-29 mL/min) *Enoxaparin/Lovenox 30 mg SQ BID (WT < 150 kg, CrCl > 30 mL/min) AND *Sequential Compression Device (SCD) Assessment and Plan - Assessment (1) Weakness Code(s): R53.1 - Weakness Status: Acute (2) Intractable pain Code(s): R52 - Pain, unspecified Status: Acute (3) Chronic cutaneous venous stasis ulcer Code(s): I83.009 - Varicose veins of unspecified lower extremity with ulcer of unspecified site; L97.909 - Non-pressure chronic ulcer of unspecified part of unspecified lower leg with unspecified severity Status: Chronic (4) CKD (chronic kidney disease) stage 3, GFR 30-59 ml/min Code(s): N18.3 - Chronic kidney disease, stage 3 (moderate) Status: Chronic (5) CHF (congestive heart failure) Code(s): I50.9 - Heart failure, unspecified Status: Chronic (6) Diabetes 1.5, managed as type 2 Code(s): E10.9 - Type 1 diabetes mellitus without complications Status: Chronic (7) Hypertension Code(s): I10 - Essential (primary) hypertension Status: Chronic (8) Morbid obesity with BMI of 50.0-59.9, adult Code(s): E66.01 - Morbid (severe) obesity due to excess calories; Z68.43 - Body mass index (BMI) 50-59.9 , adult Status: Chronic (9) Atrial fibrillation Code(s): I48.91 - Unspecified atrial fibrillation Status: Chronic (10) Neuropathy Code(s): G62.9 - Polyneuropathy, unspecified Status: Chronic - Plan Assessment/Plan 77-year-old female with significant past medical history of chronic venous stasis ulcer wounds, morbid obesity, type 2 diabetes, A. fib, obstructive sleep apnea, congestive heart failure, atrial fibrillation, neuropathy, hypertension, chronic kidney disease. Patient presented to the emergency room complaining of weakness and increasing pain to her legs. Has chronic venous stasis wounds for many years and follows up with Dr. Sebastian as outpatient. Patient indicates she had increasing right leg pain as well as right buttock pain as she has an ulcerated area in the right buttock. Has been very weak and cannot get out of bed. Weakness, physical deconditioning. Patient is morbidly obese, has had chronic venous ulceration for many years. -Consult physical therapy for evaluation Consult case management, patient may need placement. If SNF is not able to be arranged, she will need home health care with PT as well as wound care. Intractable right leg and right buttock pain Hx of peripheral neuropathy Dilaudid 0.5 mg IV every 6 as needed as well as [place] 7.5 mg p.o. every 6 as needed -PT for evaluation Chronic venous stasis ulcers, they do not appear to be infected. Lactic acid was normal, no fever. Consult wound care for evaluation We will restart Lasix, discussed with patient and she is agreeable. -Maintain legs elevated Chronic kidney disease stage III, appears at baseline Hypokalemia Avoid nephrotoxic agents -monitor BMP -Replace electrolytes as needed Type 2 diabetes Accu-Cheks before meals and at bedtime with insulin therapy CHF, appears well compensated -Continue Lasix 40 mg PO daily, continue Metolazone -Monitor electrolytes Hx of afib, tachycardic. Pt. states she stopped taking -resume Coreg 3.125 mg po BID -Continue Coumadin, INR 1.6 HTN -continue Coreg Consult CM for discharge planning, possible SNF versus home with HHC Continue Coumadin for DVT prophylaxis Plan of care d/w RN, pt. Further management of the patient will be dependent on the hospital course. (5) CHF (congestive heart failure) Qualifiers: Heart failure type: unspecified Heart failure chronicity: chronic Qualified Code(s): I50.9 - Heart failure, unspecified (7) Hypertension Qualifiers: Hypertension type: essential hypertension Qualified Code(s): I10 - Essential (primary) hypertension (9) Atrial fibrillation Qualifiers: Atrial fibrillation type: unspecified Qualified Code(s): I48.91 - Unspecified atrial fibrillation
[2017-10-29] MEDS: Insulin NovoLOG Aspart Correctional Sugar Inj SQ SCH ×2 (17:22→20:37)
[2017-10-29] MEDS ORDERED: Potassium Chloride 25 MEQ Effervescent Tablet PO ONE (17:30)
[2017-10-29] MEDS: Senna/Docusate Sodium 8.6/50 MG Tablet PO SCH (22:29)
[2017-10-30 07:01] LABS: INR 1.3 Ratio; Prothrombin Time 13.2 sec (9.8-11.6)
[2017-10-30] MEDS: Insulin NovoLOG Aspart Correctional Sugar Inj SQ SCH ×4 (08:29→20:21)
[2017-10-30] MEDS: Senna/Docusate Sodium 8.6/50 MG Tablet PO SCH ×2 (08:31→20:22)
[2017-10-30] MEDS: Furosemide 40 MG Tablet PO SCH (08:31)
--- NOTE | 2017-10-30 10:58 | P.PN ---
Subjective Interval history: awake and alert denies any pain seen with Dr. Sebastian - our wound care physician - well known to her examined at bedside bilateral leg supeficial wounds - weeping, baseline patient mostly wheelchair bound needs almost total care most she can do is stand briefly and pivot telemetry- tachycardic Physical Exam Vital signs: Vital Signs 10/29/17 11:31 10/29/17 18:10 10/29/17 20:00 Temperature 98.3 F 98.4 F Pulse Rate 100 H 99 H 106 H Respiratory Rate 24 16 18 Blood Pressure 137/74 146/80 H Pulse Oximetry 96 94 L 97 10/29/17 23:52 10/30/17 00:00 10/30/17 04:00 Temperature 98.1 F 97.8 F Pulse Rate 108 H 93 H 107 H Respiratory Rate 22 21 Blood Pressure 142/76 H 133/79 Pulse Oximetry 91 L 95 10/30/17 04:55 10/30/17 08:00 10/30/17 08:38 Temperature 96.3 F L Pulse Rate 80 104 H Respiratory Rate 16 16 Blood Pressure 114/70 Pulse Oximetry 96 10/30/17 09:00 Temperature Pulse Rate 114 H Respiratory Rate Blood Pressure Pulse Oximetry Intake & Output 10/29/17 10/30/17 10/30/17 18:59 06:59 18:59 Intake Total 240 / 240 Output Total 600 / 600 Balance -360 / -360 Weight 145.15 kg 139.5 kg Intake: Oral 240 / 240 Output: Urine 600 / 600 Other: Weight On Admission 139.1 kg Narrative: awake and alert, oriented xx3, no acute distress anciteric neck supple lungs- no rales irregularly irregular rhythm abdomen soft bilazteral LE- with extensive open wounds both anterior aspect of the legs- weeping- serous drainage - Urinary Catheter Management Indwelling Urethral Catheter Cath placed during this visit: yes, but has since been removed by the nurse Reason for continuing: Decision to DC catheter Insertion date: 10/29/17 Insertion time: 15:15 Removal date: 10/30/17 Removal time: 00:00 Results - Labs CBC & Chem 7: 10/29/17 09:33 10/31/17 06:24 Laboratory Results - last 24 hr 10/29/17 10/29/17 10/29/17 15:48 17:18 20:13 PT INR POC Glucose 69 131 H 119 H Urine Color Urine Clarity Urine pH Ur Specific [place] Urine Protein Urine Glucose (UA) Urine Ketones Urine Occult Blood Urine Nitrate Urine Bilirubin Urine Urobilinogen Ur Leukocyte Esterase Urine RBC Urine WBC Ur Squamous Epith Cells Urine Bacteria Micro UA Comment Ur Microscopic Review Urine Culture Comments 10/29/17 10/30/17 Unknown 04:29 PT 13.2 H INR 1.3 POC Glucose Urine Color Yellow Urine Clarity Clear Urine pH 6.0 Ur Specific [place] 1.015 Urine Protein 30 H Urine Glucose (UA) Negative Urine Ketones Negative Urine Occult Blood Small H Urine Nitrate Negative Urine Bilirubin Negative Urine Urobilinogen 2.0 H Ur Leukocyte Esterase Negative Urine RBC 1 Urine WBC 2 Ur Squamous Epith Cells <1 Urine Bacteria Rare H Micro UA Comment Cath-culture ind Ur Microscopic Review Not Reportable Urine Culture Comments Cath-cult indicated Microbiology 10/29/17 09:33 Wound - Foot Gram Stain - Final Assessment and Plan - Assessment (1) Weakness Code(s): R53.1 - Weakness Status: Acute (2) Intractable pain Code(s): R52 - Pain, unspecified Status: Acute (3) Chronic cutaneous venous stasis ulcer Code(s): I83.009 - Varicose veins of unspecified lower extremity with ulcer of unspecified site; L97.909 - Non-pressure chronic ulcer of unspecified part of unspecified lower leg with unspecified severity Status: Chronic (4) CKD (chronic kidney disease) stage 3, GFR 30-59 ml/min Code(s): N18.3 - Chronic kidney disease, stage 3 (moderate) Status: Chronic (5) CHF (congestive heart failure) Code(s): I50.9 - Heart failure, unspecified Status: Chronic (6) Diabetes 1.5, managed as type 2 Code(s): E10.9 - Type 1 diabetes mellitus without complications Status: Chronic (7) Hypertension Code(s): I10 - Essential (primary) hypertension Status: Chronic (8) Morbid obesity with BMI of 50.0-59.9, adult Code(s): E66.01 - Morbid (severe) obesity due to excess calories; Z68.43 - Body mass index (BMI) 50-59.9 , adult Status: Chronic (9) Atrial fibrillation Code(s): I48.91 - Unspecified atrial fibrillation Status: Chronic (10) Neuropathy Code(s): G62.9 - Polyneuropathy, unspecified Status: Chronic - Plan 77-year-old female with significant past medical history of chronic venous stasis ulcer wounds, morbid obesity, type 2 diabetes, A. fib, obstructive sleep apnea, congestive heart failure, atrial fibrillation, neuropathy, hypertension, chronic kidney disease. Patient presented to the emergency room complaining of weakness and increasing pain to her legs. Has chronic venous stasis wounds for many years and follows up with Dr. Sebastian as outpatient. Patient indicates she had increasing right leg pain as well as right buttock pain as she has an ulcerated area in the right buttock. Has been very weak and cannot get out of bed. Weakness, physical deconditioning. Patient is morbidly obese, has had chronic venous ulceration for many years. -Consult physical therapy for evaluation Consult case management,- need placement. - patient is almost total care- most she can do is stand briefly and pibvot- wheelchair bound Hx of afib, - in RVR- rate 120s - Pt. states she stopped taking-meds -resume Coreg 3.125 mg po BID - - explained to patient that this is given for HR and CHF- now agrees tot benjamin it -Continue Coumadin, INR 1.6- ff INR-give extra dose todayh - ff INR CHF, appears well compensated -Continue Lasix 40 mg PO daily, continue Metolazone -Monitor electrolytes HTN -continue Coreg Intractable right leg and right buttock pain Hx of peripheral neuropathy Dilaudid 0.5 mg IV every 6 as needed as well as [place] 7.5 mg p.o. every 6 as needed -PT for evaluation Chronic venous stasis ulcers,Lactic acid was normal, no fever. Dr Sebastian at bedside - will obtain cultures . we will hold off on antibiotics for now - wound care dressing isntructions -Maintain legs elevated Chronic kidney disease stage III, appears at baseline Hypokalemia Avoid nephrotoxic agents -monitor BMP - restarted on lasix -Replace electrolytes as needed Type 2 diabetes Accu-Cheks before meals and at bedtime with insulin therapy Consult CM for discharge planning, - needs placement ideally- Dr. Brown discuss with aptient- agreeable Continue Coumadin for DVT prophylaxis (5) CHF (congestive heart failure) Qualifiers: Heart failure type: unspecified Heart failure chronicity: chronic Qualified Code(s): I50.9 - Heart failure, unspecified (7) Hypertension Qualifiers: Hypertension type: essential hypertension Qualified Code(s): I10 - Essential (primary) hypertension (9) Atrial fibrillation Qualifiers: Atrial fibrillation type: unspecified Qualified Code(s): I48.91 - Unspecified atrial fibrillation
--- NOTE | 2017-10-30 12:13 | P.CONWOU ---
History of Present Illness Service: 10/30/17 Consult date: 10/29/17 Reason for Consult: Management of bilateral lower extremity venous stasis ulcers Primary Care Provider: Megan Strong MD Chief Complaint: weakness, leg pain PMFSH - History History Provided By: Patient - Medical History Medical History: Medical History (Last Reviewed 10/30/17 @ 07:39 by Ailyn Schmitt) Atrial fibrillation Chronic cutaneous venous stasis ulcer Congestive heart failure History of MRSA infection Hyperlipidemia Hypertension Morbidly obese Neuropathy Obstructive sleep apnea Type 2 diabetes mellitus Urinary incontinence - Surgical History Surgical History: Surgical History (Last Reviewed 10/30/17 @ 07:39 by Ailyn Schmitt) Hx of cholecystectomy Hx of laparoscopic gastric banding Hx of tubal ligation - Family History Family History: Family History (Last Updated 10/29/17 @ 17:16 by YOMAIRA Healy) Other Family history non-contributory - Tobacco History Second Hand Smoke Exposure: No Smoking Status: Former smoker Tobacco Type: Cigarettes - Alcohol History How Often Do You Have a Drink Containing Alcohol: Never - Substance Use History Substance History: Past History - Travel History Recent Travel in the [place] Within the Last 8 Weeks: No Recent Travel Out of the Country Within the Last 8 Weeks: No - Immunization History Tetanus Immunization: Unable to Assess Hx Influenza Vaccine This Season: Yes Medications and Allergies Active Medications: Active Medications Acetaminophen (Tylenol) 650 mg PO Q4H PRN PRN Reason: Temp > 100.4 Hydrocodone Bitart/Acetaminophen ([place] 7.5/325) 1 tab PO Q6H PRN PRN Reason: PAIN SCALE 4 TO 6 MODERATE Last Admin: 10/30/17 10:39 Dose: 1 tab Al Hydroxide/Mg Hydroxide (Milk Of Magnarleen Liq) 30 ml PO Q12H PRN PRN Reason: Mild Constipation Bisacodyl (Dulcolax Supp) 10 mg RECTAL DAILY PRN PRN Reason: SEVERE CONSITIPATION Carvedilol (Coreg) 3.125 mg PO BID MICHOACANO Dextrose (D50w Vial) 50 ml IV.PUSH UNSCH PRN PRN Reason: PER HYPOGLYCEMIA PROTOCOL Furosemide (Lasix) 40 mg PO DAILY [facility] Last Admin: 10/30/17 08:31 Dose: 40 mg Glucagon (Glucagon Inj) 1 mg OTHER UNSCH PRN PRN Reason: for Hypoglycemia Protocol Hydromorphone HCl (Dilaudid Pf Inj) 0.5 mg IV.PUSH Q6H PRN PRN Reason: PAIN SCALE 7 TO 10 SEVERE Insulin Aspart (Novolog Insulin Correctional Sugar Inj) 0 unit SQ [facility]; Protocol Last Admin: 10/30/17 08:29 Dose: Not Given Lactulose (Lactulose Liq) 30 ml PO DAILY PRN PRN Reason: SEVERE CONSITIPATION Metolazone (Zaroxolyn) 2.5 mg PO DAILY [facility] Last Admin: 10/30/17 08:31 Dose: 2.5 mg Ondansetron HCl (Zofran Inj) 4 mg IV.PUSH Q6H PRN PRN Reason: NAUSEA OR VOMITING Potassium Chloride (Klor-Con 10) 30 meq PO DAILY [facility] Pregabalin (Lyrica) 100 mg PO BID [facility] Last Admin: 10/30/17 08:31 Dose: 100 mg Ropinirole HCl (Requip) 0.25 mg PO HS [facility] Last Admin: 10/29/17 22:30 Dose: 0.25 mg Senna/Docusate Sodium ([place]-Colace) 1 tab PO BID [facility] Last Admin: 10/30/17 08:31 Dose: 1 tab Sennosides (Senokot) 17.2 mg PO Q12H PRN PRN Reason: Moderate Constipation Warfarin Sodium (Coumadin) 5 mg PO DAILY@1600 [facility] Last Admin: 10/29/17 19:53 Dose: 5 mg Warfarin Sodium (Coumadin) 5 mg PO ONCE ONE Stop: 10/30/17 16:01 Allergies Allergy/AdvReac Type Severity Reaction Status Date / Time *MDRO Multi-Drug Resistant AdvReac Unknown Uncoded 01/26/17 17:39 Organism Home Medications Medication Instructions Recorded Confirmed Type carvedilol See Label Instructions .ROUTE 10/29/17 10/29/17 History .COMPLEX furosemide [Lasix] 40 mg PO BID 10/29/17 10/29/17 History linaclotide [Linzess] 290 mcg PO DAILY 10/29/17 10/29/17 History metolazone 2.5 mg PO DAILY 10/29/17 10/29/17 History potassium chloride See Label Instructions .ROUTE 10/29/17 10/29/17 History .COMPLEX pregabalin [Lyrica] 100 mg PO BID 10/29/17 10/29/17 History ropinirole 0.25 mg PO DAILY 10/29/17 10/29/17 History warfarin 5 mg PO DAILY 10/29/17 10/29/17 History Physical Exam Vital signs: Vital Signs 10/29/17 18:10 10/29/17 20:00 10/29/17 23:52 Temperature 98.3 F 98.4 F Pulse Rate 99 H 106 H 108 H Respiratory Rate 16 18 Blood Pressure 137/74 146/80 H Pulse Oximetry 94 L 97 10/30/17 00:00 10/30/17 04:00 10/30/17 04:55 Temperature 98.1 F 97.8 F Pulse Rate 93 H 107 H 80 Respiratory Rate 22 21 Blood Pressure 142/76 H 133/79 Pulse Oximetry 91 L 95 10/30/17 08:00 10/30/17 08:38 10/30/17 09:00 Temperature 96.3 F L Pulse Rate 104 H 114 H Respiratory Rate 16 16 Blood Pressure 114/70 Pulse Oximetry 96 Intake & Output 10/29/17 10/30/17 10/30/17 18:59 06:59 18:59 Intake Total 240 / 240 Output Total 600 / 600 Balance -360 / -360 Weight 145.15 kg 139.5 kg Intake: Oral 240 / 240 Output: Urine 600 / 600 Other: Weight On Admission 139.1 kg - Urinary Catheter Management Indwelling Urethral Catheter Cath placed during this visit: yes, but has since been removed by the nurse Reason for continuing: Decision to DC catheter Insertion date: 10/29/17 Insertion time: 15:15 Removal date: 10/30/17 Removal time: 00:00 Wound/Pressure Injury - Wound Left Lower Ankle Wound Assessment: Ongoing Wound Type: Traumatic Wound Is This a Chronic Wound: Yes Wound Bed Appearance: [place], Yellow Drainage Amount: Moderate Dressing Status: Dry & Intact Right Lower Ankle Wound Assessment: Ongoing Wound Type: Traumatic Wound Is This a Chronic Wound: Yes Wound Bed Appearance: [place], Yellow Drainage Description: Purulent Drainage Amount: Moderate Dressing Status: Dry & Intact Right Buttocks Wound Assessment: Ongoing Wound Type: Pressure Injury Dressing Status: Open to Air Assessment and Plan - Assessment (1) Venous stasis ulcer of right lower extremity Code(s): I83.019 - Varicose veins of right lower extremity with ulcer of unspecified site; L97.919 - Non-pressure chronic ulcer of unspecified part of right lower leg with unspecified severity Status: Acute Plan: Wound dimensions this week are: Device related upperleg midline-0.4cmx 1.2cm x eschar, second device related ulcer m-1.5cmx5.2cmx eschar( please note that these were from dressings which patient had prior to admission. Below these wounds was a large expanse of denuded skin which was circumferential and measured [id number] slough. All the wounds were cleaned with white rags wet with hibiclens and tap water to remove slough and devitalized tissue. Selective debridement was done to remove the more recalcitrant wound detritus with 7mm dermal curette. Cultures were taken. Wounds were then completely cleaned once again and then skin prep and calazyme was placed on intact skin of the periwound and and then hydrofera blue was placed on the wound bed and covered with optilock and ABD pads and gauze and cedric and NEGRO wraps. Patient tolerated this well. (2) Venous stasis ulcer of left lower extremity Code(s): I83.029 - Varicose veins of left lower extremity with ulcer of unspecified site; L97.929 - Non-pressure chronic ulcer of unspecified part of left lower leg with unspecified severity Status: Acute Plan: 10/30/17: Wound dimensions this week are: 7.2cmx 7.8cm x slough. Wound was selectively debrided both with sharp curette as well as hibiclens moistened rag until a good bleeding base was achieved. Wound was then cleaned with normal saline and then dressed with hydrofera blue and covered with abd pad and optilock and then covered with gauze and cedric. Wound care orders submitted. (3) Intertrigo Code(s): L30.4 - Erythema intertrigo Status: Acute (4) Morbid obesity Code(s): E66.01 - Morbid (severe) obesity due to excess calories Status: Acute
[2017-10-30] MEDS: HYDROmorphone PF Inj 2 MG/ML Vial IV.PUSH PRN (23:05)
[2017-10-31 07:35] LABS: INR 1.6 Ratio; Prothrombin Time 16.1 sec (9.8-11.6)
[2017-10-31 07:52] LABS: Calcium 8.4 mg/dL (8.5-10.1); Carbon Dioxide 29.6 meq/L (21.0-32.0); Potassium 3.9 meq/L (3.5-5.1)
[2017-10-31] MEDS: Senna/Docusate Sodium 8.6/50 MG Tablet PO SCH ×2 (09:03→20:55)
[2017-10-31] MEDS: Furosemide 40 MG Tablet PO SCH (09:03)
[2017-10-31] MEDS: Insulin NovoLOG Aspart Correctional Sugar Inj SQ SCH ×4 (09:04→20:56)
--- NOTE | 2017-10-31 10:38 | P.PN ---
Subjective Interval history: no complains doing well we discussed about her insulin regimen at home- high dose - we dont have socorro here now agreesto go to rehab Physical Exam Vital signs: Vital Signs 10/30/17 12:00 10/30/17 16:00 10/30/17 20:00 Temperature 98.0 F 98.6 F 98.6 F Pulse Rate 112 H 106 H 102 H Respiratory Rate 20 20 22 Blood Pressure 144/65 H 124/64 130/63 Pulse Oximetry 92 L 92 L 91 L 10/30/17 20:25 10/30/17 23:55 10/31/17 00:00 Temperature 98.1 F Pulse Rate 110 H 113 H 98 H Respiratory Rate 22 Blood Pressure 114/56 L Pulse Oximetry 94 L 10/31/17 03:50 10/31/17 04:00 10/31/17 07:29 Temperature 98.1 F 98.5 F Pulse Rate 98 H 100 H 92 H Respiratory Rate 21 18 Blood Pressure 108/66 120/72 Pulse Oximetry 94 L 100 10/31/17 08:00 Temperature Pulse Rate 96 H Respiratory Rate 16 Blood Pressure Pulse Oximetry Intake & Output 10/30/17 10/31/17 10/31/17 18:59 06:59 18:59 Intake Total 480 / 480 480 / 480 Output Total 800 / 800 900 / 900 Balance -320 / -320 -420 / -420 Weight 139.8 kg Intake: Oral 480 / 480 480 / 480 Output: Urine 800 / 800 900 / 900 Other: Date of Last Bowel Movement 10/27/17 Narrative: awake and alert, oriented xx3, no acute distress anicteric neck supple lungs- no rales irregularly irregular rhythm abdomen soft bilateral LE- with extensive open wounds both anterior aspect of the legs- less drainage serous drainage- non fould - Urinary Catheter Management Indwelling Urethral Catheter Cath placed during this visit: yes, but has since been removed by the nurse Reason for continuing: Decision to DC catheter Insertion date: 10/29/17 Insertion time: 15:15 Removal date: 10/30/17 Removal time: 00:00 Results - Labs CBC & Chem 7: 10/29/17 09:33 10/31/17 06:24 Laboratory Results - last 24 hr 10/29/17 10/30/17 10/30/17 Unknown 11:51 16:56 PT INR Sodium Potassium Chloride Carbon Dioxide Anion Gap BUN Creatinine Estimated GFR POC Glucose 124 H 176 H Random Glucose Calcium Urine Color Yellow Urine Clarity Clear Urine pH 6.0 Ur Specific [place] 1.015 Urine Protein 30 H Urine Glucose (UA) Negative Urine Ketones Negative Urine Occult Blood Small H Urine Nitrate Negative Urine Bilirubin Negative Urine Urobilinogen 2.0 H Ur Leukocyte Esterase Negative Urine RBC 1 Urine WBC 2 Ur Squamous Epith Cells <1 Urine Bacteria Rare H Micro UA Comment Cath-culture ind Urine Culture Comments Cath-cult indicated 10/30/17 10/31/17 10/31/17 19:34 06:24 06:24 PT 16.1 H INR 1.6 Sodium 131 L Potassium 3.9 Chloride 93 L Carbon Dioxide 29.6 Anion Gap 8 BUN 33 H Creatinine 1.30 H Estimated GFR 40 L POC Glucose 216 H Random Glucose 188 H Calcium 8.4 L Urine Color Urine Clarity Urine pH Ur Specific [place] Urine Protein Urine Glucose (UA) Urine Ketones Urine Occult Blood Urine Nitrate Urine Bilirubin Urine Urobilinogen Ur Leukocyte Esterase Urine RBC Urine WBC Ur Squamous Epith Cells Urine Bacteria Micro UA Comment Urine Culture Comments 10/31/17 07:08 PT INR Sodium Potassium Chloride Carbon Dioxide Anion Gap BUN Creatinine Estimated GFR POC Glucose 200 H Random Glucose Calcium Urine Color Urine Clarity Urine pH Ur Specific [place] Urine Protein Urine Glucose (UA) Urine Ketones Urine Occult Blood Urine Nitrate Urine Bilirubin Urine Urobilinogen Ur Leukocyte Esterase Urine RBC Urine WBC Ur Squamous Epith Cells Urine Bacteria Micro UA Comment Urine Culture Comments Microbiology 10/29/17 Unknown Catheterized Urine Urine Culture - Final Escherichia coli 10/29/17 09:40 Blood - Peripheral Aerobic Blood Culture - Preliminary Staphylococcus coag negative 10/29/17 09:40 Blood - Peripheral Anaerobic Blood Culture - Preliminary No growth in 1 day 10/29/17 09:33 Blood - Peripheral Aerobic Blood Culture - Preliminary Staphylococcus coag negative 10/29/17 09:33 Blood - Peripheral Anaerobic Blood Culture - Final Staphylococcus coag negative 10/29/17 09:33 Wound - Foot Gram Stain - Final 10/29/17 09:33 Wound - Foot Wound Culture - Preliminary Pseudomonas species 10/30/17 12:18 Wound - Leg Gram Stain - Final Assessment and Plan - Assessment (1) Weakness Code(s): R53.1 - Weakness Status: Acute (2) Intractable pain Code(s): R52 - Pain, unspecified Status: Acute (3) Chronic cutaneous venous stasis ulcer Code(s): I83.009 - Varicose veins of unspecified lower extremity with ulcer of unspecified site; L97.909 - Non-pressure chronic ulcer of unspecified part of unspecified lower leg with unspecified severity Status: Chronic (4) CKD (chronic kidney disease) stage 3, GFR 30-59 ml/min Code(s): N18.3 - Chronic kidney disease, stage 3 (moderate) Status: Chronic (5) CHF (congestive heart failure) Code(s): I50.9 - Heart failure, unspecified Status: Chronic (6) Diabetes 1.5, managed as type 2 Code(s): E10.9 - Type 1 diabetes mellitus without complications Status: Chronic (7) Hypertension Code(s): I10 - Essential (primary) hypertension Status: Chronic (8) Morbid obesity with BMI of 50.0-59.9, adult Code(s): E66.01 - Morbid (severe) obesity due to excess calories; Z68.43 - Body mass index (BMI) 50-59.9 , adult Status: Chronic (9) Atrial fibrillation Code(s): I48.91 - Unspecified atrial fibrillation Status: Chronic (10) Neuropathy Code(s): G62.9 - Polyneuropathy, unspecified Status: Chronic - Plan 77-year-old female with significant past medical history of chronic venous stasis ulcer wounds, morbid obesity, type 2 diabetes, A. fib, obstructive sleep apnea, congestive heart failure, atrial fibrillation, neuropathy, hypertension, chronic kidney disease. Patient presented to the emergency room complaining of weakness and increasing pain to her legs. Has chronic venous stasis wounds for many years and follows up with Dr. Sebastian as outpatient. Patient indicates she had increasing right leg pain as well as right buttock pain as she has an ulcerated area in the right buttock. Has been very weak and cannot get out of bed. Weakness, physical deconditioning. Patient is morbidly obese, has had chronic venous ulceration for many years. -Consult physical therapy for evaluation Consult case management,- need placement. - agreeable tos SNF - patient is almost total care- most she can do is stand briefly and pibvot- wheelchair bound Hx of afib, - in RVR- rate 120s - rate better cotnrolled 90s - Pt. states she stopped taking-meds -resume Coreg 3.125 mg po BID - - explained to patient that this is given for HR and CHF- now agrees tot benjamin it -Continue Coumadin, INR 1.6- ff INR-give extra dose- increase dose to 7.5 mg dialy starting 11/01 - ff INR Chronic venous stasis ulcers,Lactic acid was normal, no fever. Dr Sebastian at bedside 10/30 - will obtain cultures- pending . we will hold off on antibiotics for now - wound care dressing isntructions -Maintain legs elevated CHF, appears well compensated -Continue Lasix 40 mg PO daily- will decrease to 20 mg daily- creatinine slightly up -, continue Metolazone -Monitor electrolytes HTN -continue Coreg Intractable right leg and right buttock pain Hx of peripheral neuropathy Dilaudid 0.5 mg IV every 6 as needed as well as [place] 7.5 mg p.o. every 6 as needed -PT for evaluation Chronic kidney disease stage III, appears at baseline Hypokalemia- improved Avoid nephrotoxic agents -monitor BMP - restarted on lasix- creatinine slightly up- decrease Lasix to 20 mg daily -Replace electrolytes as needed Type 2 diabetes Accu-Cheks before meals and at bedtime with insulin therapy - d/w her- start onn Levemer standing dose with sliding scale - per patient was on higher doses at home- Treiseva and Novolog - check A1C Consult CM for discharge planning, - needs placement ideally- Dr. Brown discuss with aptient- agreeable Continue Coumadin for DVT prophylaxis 1 pm ADD: Cultures back Urine culture + E coli- but UA not much pyuria only few WBC wound culture= Pseudomonas Blood cultures- Stap coag negative 3 out of 4 bottles - start zosyn - get ID consult for recommendation - repeat cultures to ensure clearance change to full admission (5) CHF (congestive heart failure) Qualifiers: Heart failure type: unspecified Heart failure chronicity: chronic Qualified Code(s): I50.9 - Heart failure, unspecified (7) Hypertension Qualifiers: Hypertension type: essential hypertension Qualified Code(s): I10 - Essential (primary) hypertension (9) Atrial fibrillation Qualifiers: Atrial fibrillation type: unspecified Qualified Code(s): I48.91 - Unspecified atrial fibrillation
[2017-10-31] MEDS: Insulin Detemir Inj 1,000 UNIT/10 ML Vial SQ SCH ×2 (12:33→20:56)
[2017-10-31] MEDS: Piperacil/Tazo 4.5 GM Premix 4.5 GM/100 ML BAG IV.SIG SCH (16:29)
[2017-11-01] MEDS: Piperacil/Tazo 4.5 GM Premix 4.5 GM/100 ML BAG IV.SIG SCH ×3 (00:22→15:45)
[2017-11-01 05:20] LABS: INR 2.5 Ratio; Prothrombin Time 25.6 sec (9.8-11.6)
[2017-11-01 05:45] LABS: Calcium 8.2 mg/dL (8.5-10.1); Carbon Dioxide 28.1 meq/L (21.0-32.0); Potassium 3.1 meq/L (3.5-5.1)
--- NOTE | 2017-11-01 09:16 | P.PN ---
Subjective Interval history: awake and alert no complains of pain taking good po Physical Exam Vital signs: Vital Signs 10/31/17 11:36 10/31/17 16:00 10/31/17 20:00 Temperature 98.4 F 97.5 F L 97.9 F Pulse Rate 81 95 H 104 H Respiratory Rate 20 16 20 Blood Pressure 115/64 102/58 L 113/58 L Pulse Oximetry 93 L 95 11/01/17 00:00 11/01/17 01:22 11/01/17 04:00 Temperature 98.1 F 97.8 F Pulse Rate 97 H 97 H Respiratory Rate 20 20 20 Blood Pressure 113/58 L 130/66 Pulse Oximetry 95 91 L Intake & Output 10/31/17 11/01/17 11/01/17 18:59 06:59 18:59 Intake Total 820 / 820 740 / 740 Output Total 750 / 750 600 / 600 Balance 70 / 70 140 / 140 Weight 139.8 kg Intake: IV 100 / 100 100 / 100 Zosyn 4.5 GM Premix 4.5 gm In 100 / 100 100 / 100 100 ml @ 200 mls/hr IV.SIG Q8H MICHOACANO Rx#:[id number] Oral 720 / 720 640 / 640 Output: Urine 750 / 750 600 / 600 Other: Date of Last Bowel Movement 10/27/17 # Bowel Movements 0 0 Narrative: awake and alert, oriented xx3, no acute distress anicteric neck supple lungs- no rales irregularly irregular rhythm, HR beter controlled 80s abdomen soft bilateral LE- with extensive open wounds both anterior aspect of the legs- less drainage serous drainage- non fould - Urinary Catheter Management Indwelling Urethral Catheter Cath placed during this visit: yes, but has since been removed by the nurse Reason for continuing: Decision to DC catheter Insertion date: 10/29/17 Insertion time: 15:15 Removal date: 10/30/17 Removal time: 00:00 Results - Labs CBC & Chem 7: 10/29/17 09:33 11/02/17 06:20 Laboratory Results - last 24 hr 10/31/17 10/31/17 11/01/17 11:27 16:28 04:31 PT INR Sodium 133 L Potassium 3.1 L D Chloride 93 L Carbon Dioxide 28.1 Anion Gap 12 BUN 33 H Creatinine 1.28 H Estimated GFR 40 L POC Glucose 267 H 262 H Random Glucose 219 H Calcium 8.2 L 11/01/17 11/01/17 04:31 07:35 PT 25.6 H INR 2.5 Sodium Potassium Chloride Carbon Dioxide Anion Gap BUN Creatinine Estimated GFR POC Glucose 197 H Random Glucose Calcium Microbiology 10/29/17 09:40 Blood - Peripheral Aerobic Blood Culture - Final Staph. cohnii-urealyticum 10/29/17 09:40 Blood - Peripheral Anaerobic Blood Culture - Preliminary No growth in 2 days 10/29/17 09:33 Blood - Peripheral Aerobic Blood Culture - Final Staph. cohnii-urealyticum 10/29/17 09:33 Blood - Peripheral Anaerobic Blood Culture - Final Staphylococcus coag negative 10/30/17 12:18 Wound - Leg Gram Stain - Final 10/30/17 12:18 Wound - Leg Wound Culture - Final Pseudomonas aeruginosa 10/29/17 09:33 Wound - Foot Gram Stain - Final 10/29/17 09:33 Wound - Foot Wound Culture - Preliminary Pseudomonas aeruginosa Group D Enterococcus 10/29/17 Unknown Catheterized Urine Urine Culture - Final Escherichia coli Assessment and Plan - Assessment (1) Weakness Code(s): R53.1 - Weakness Status: Acute (2) Intractable pain Code(s): R52 - Pain, unspecified Status: Acute (3) Chronic cutaneous venous stasis ulcer Code(s): I83.009 - Varicose veins of unspecified lower extremity with ulcer of unspecified site; L97.909 - Non-pressure chronic ulcer of unspecified part of unspecified lower leg with unspecified severity Status: Chronic (4) CKD (chronic kidney disease) stage 3, GFR 30-59 ml/min Code(s): N18.3 - Chronic kidney disease, stage 3 (moderate) Status: Chronic (5) CHF (congestive heart failure) Code(s): I50.9 - Heart failure, unspecified Status: Chronic (6) Diabetes 1.5, managed as type 2 Code(s): E10.9 - Type 1 diabetes mellitus without complications Status: Chronic (7) Hypertension Code(s): I10 - Essential (primary) hypertension Status: Chronic (8) Morbid obesity with BMI of 50.0-59.9, adult Code(s): E66.01 - Morbid (severe) obesity due to excess calories; Z68.43 - Body mass index (BMI) 50-59.9 , adult Status: Chronic (9) Atrial fibrillation Code(s): I48.91 - Unspecified atrial fibrillation Status: Chronic (10) Neuropathy Code(s): G62.9 - Polyneuropathy, unspecified Status: Chronic - Plan 77-year-old female with significant past medical history of chronic venous stasis ulcer wounds, morbid obesity, type 2 diabetes, A. fib, obstructive sleep apnea, congestive heart failure, atrial fibrillation, neuropathy, hypertension, chronic kidney disease. Patient presented to the emergency room complaining of weakness and increasing pain to her legs. Has chronic venous stasis wounds for many years and follows up with Dr. Sebastian as outpatient. Patient indicates she had increasing right leg pain as well as right buttock pain as she has an ulcerated area in the right buttock. Has been very weak and cannot get out of bed. Weakness, physical deconditioning. Patient is morbidly obese, has had chronic venous ulceration for many years. -Consult physical therapy for evaluation Consult case management,- need placement. - agreeable to SNF - patient is almost total care- most she can do is stand briefly and pibvot- wheelchair bound Hx of afib, - in RVR- rate 120s - rate better cotnrolled 90s - Pt. states she stopped taking-meds -resumed Coreg 3.125 mg po BID - - explained to patient that this is given for HR and CHF- now agrees tot benjamin it -Continue Coumadin, INR therapetuic 2.5 - ff INR- coumadin daily 5 mg daily Staph bacteremia- 3/4 + psoitve for S species - started on zosyn 11/01 - ID consulted - will repeat blood cultuires in next few days to ensure clearance Chronic venous stasis ulcers,Lactic acid was normal, no fever. Infected wounds - wound cultures growing Pseudomonas Dr Sebastian at bedside 10/30 - - wound care dressing isntructions -Maintain legs elevated - ID contulted - started on Zosyn 10/31 UTI- e coli- started on zosyn 10/31 CHF, appears well compensated -Continue Lasix 40 mg PO daily- will decrease to 20 mg daily- creatinine slightly up -, continue Metolazone -Monitor electrolytes HTN -continue Coreg Intractable right leg and right buttock pain Hx of peripheral neuropathy Dilaudid 0.5 mg IV every 6 as needed as well as [place] 7.5 mg p.o. every 6 as needed -PT for evaluation Chronic kidney disease stage III, appears at baseline Hypokalemia- 3.9- now down to 3.1 again Avoid nephrotoxic agents -monitor BMP - restarted on lasix- - started on KCL 30 meq po daily. give extra KCL 20 meq po later today Type 2 diabetes Accu-Cheks before meals and at bedtime with insulin therapy - d/w her- start onn [place] standing dose with sliding scale - per patient was on higher doses at home- Treiseva and Novolog - check A1C- pending Consult CM for discharge planning, - needs placement ideally- Dr. Brown discuss with aptient- agreeable Continue Coumadin for DVT prophylaxis 10/31 1 pm ADD: Cultures back Urine culture + E coli- but UA not much pyuria only few WBC wound culture= Pseudomonas Blood cultures- Stap coag negative 3 out of 4 bottles - start zosyn - get ID consult for recommendation - repeat cultures to ensure clearance in next few days change to full admission (5) CHF (congestive heart failure) Qualifiers: Heart failure type: unspecified Heart failure chronicity: chronic Qualified Code(s): I50.9 - Heart failure, unspecified (7) Hypertension Qualifiers: Hypertension type: essential hypertension Qualified Code(s): I10 - Essential (primary) hypertension (9) Atrial fibrillation Qualifiers: Atrial fibrillation type: unspecified Qualified Code(s): I48.91 - Unspecified atrial fibrillation
[2017-11-01] MEDS: Insulin Detemir Inj 1,000 UNIT/10 ML Vial SQ SCH ×2 (10:18→15:43)
[2017-11-01] MEDS: Insulin NovoLOG Aspart Correctional Sugar Inj SQ SCH ×4 (10:19→22:01)
[2017-11-01] MEDS: Furosemide 20 MG Tablet PO SCH (10:20)
[2017-11-01] MEDS: Senna/Docusate Sodium 8.6/50 MG Tablet PO SCH ×2 (10:20→21:57)
[2017-11-01] MEDS: HYDROmorphone PF Inj 2 MG/ML Vial IV.PUSH PRN ×2 (11:22→21:57)
[2017-11-01 11:52] LABS: Hemoglobin A1c 7.2 % (4.3-6.0)
--- NOTE | 2017-11-01 14:50 | P.CONID ---
History of Present Illness Service: ID Consult date: 11/01/17 Requesting Physician: Felipe Hinton Reason for Consult: LE wounds- pseudomonas, E.coli UTI, coag neg staph bacteremia Primary Care Provider: Megan Strong MD Chief Complaint: weakness, leg pain History of Present Illness: 77 yo morbidly obese diabetic female with chronic BLE venostasis and chronic b/ l ankle wounds, pt of Dr Sebastian presented after [facility] nurse recommended going to ER 2/2 worsening BLE edema pt is w/c bound Pt apparenlty was not compliant with LE elevastions 2/2 difficulty getting into bed Sh denies fevers, chills NO fever or leukocytosis noted since admission Wound cultures with lawrence S PSAE UA + pyuria, clx with lawrence S E.coli Coag neg staph in 2/2 blood clx, though kendra of the sets showed diffeen tmorphoogies Not on vancomycin No h/o pacemakers , PORTs or other endovascular devices Review of Systems All other systems reviewed negative except as stated in HPI PMFSH - History History Provided By: Patient - Medical History Medical History: Medical History (Last Reviewed 11/01/17 @ 14:48 by Fiorella Ivy MD) Atrial fibrillation Chronic cutaneous venous stasis ulcer Congestive heart failure History of MRSA infection Hyperlipidemia Hypertension Morbidly obese Neuropathy Obstructive sleep apnea Type 2 diabetes mellitus Urinary incontinence - Surgical History Surgical History: Surgical History (Last Reviewed 11/01/17 @ 14:48 by Fiorella Ivy MD) Hx of cholecystectomy Hx of laparoscopic gastric banding Hx of tubal ligation - Family History Family History: Family History (Last Reviewed 11/01/17 @ 14:48 by Fiorella Ivy MD) Other Family history non-contributory - Social History I have reviewed the patient's Social History: Yes - Tobacco History Second Hand Smoke Exposure: No Tobacco Use In Past 30 Days: No Smoking Status: Former smoker Tobacco Type: Cigarettes - Alcohol History How Often Do You Have a Drink Containing Alcohol: Never - Substance Use History Substance History: Past History - Substance Use Type Marijuana Route Used: Inhalation - Travel History Recent Travel in the [place] Within the Last 8 Weeks: No Recent Travel Out of the Country Within the Last 8 Weeks: No - Immunization History Tetanus Immunization: Unable to Assess Hx Influenza Vaccine This Season: Yes Medications and Allergies Active Medications: Active Medications Acetaminophen (Tylenol) 650 mg PO Q4H PRN PRN Reason: Temp > 100.4 Hydrocodone Bitart/Acetaminophen ([place] 7.5/325) 1 tab PO Q6H PRN PRN Reason: PAIN SCALE 4 TO 6 MODERATE Last Admin: 11/01/17 00:22 Dose: 1 tab Al Hydroxide/Mg Hydroxide (Milk Of Magnesia Liq) 30 ml PO Q12H PRN PRN Reason: Mild Constipation Bisacodyl (Dulcolax Supp) 10 mg RECTAL DAILY PRN PRN Reason: SEVERE CONSITIPATION Carvedilol (Coreg) 3.125 mg PO BID [facility] Last Admin: 11/01/17 10:22 Dose: 3.125 mg Dextrose (D50w Vial) 50 ml IV.PUSH UNSCH PRN PRN Reason: PER HYPOGLYCEMIA PROTOCOL Furosemide (Lasix) 20 mg PO DAILY [facility] Last Admin: 11/01/17 10:20 Dose: 20 mg Glucagon (Glucagon Inj) 1 mg OTHER UNSCH PRN PRN Reason: for Hypoglycemia Protocol Hydromorphone HCl (Dilaudid Pf Inj) 0.5 mg IV.PUSH Q6H PRN PRN Reason: PAIN SCALE 7 TO 10 SEVERE Last Admin: 11/01/17 11:22 Dose: 0.5 mg Piperacillin/Tazobactam/Dextrose (Zosyn 4.5 Gm Premix) 4.5 gm in 100 mls @ 200 mls/hr IV.SIG Q8H [facility] Last Infusion: 11/01/17 12:30 Dose: Infused Insulin Aspart (Novolog Insulin Correctional Sugar Inj) 0 unit SQ ACHS [facility]; Protocol Last Admin: 11/01/17 13:49 Dose: 7 unit Insulin Detemir (Levemir Inj) 30 unit SQ BID [facility] Lactulose (Lactulose Liq) 30 ml PO DAILY PRN PRN Reason: SEVERE CONSITIPATION Metolazone (Zaroxolyn) 2.5 mg PO DAILY [facility] Last Admin: 11/01/17 10:23 Dose: 2.5 mg Ondansetron HCl (Zofran Inj) 4 mg IV.PUSH Q6H PRN PRN Reason: NAUSEA OR VOMITING Potassium Chloride (Klor-Con 10) 30 meq PO DAILY [facility] Last Admin: 11/01/17 10:22 Dose: 30 meq Potassium Chloride (K-Dur) 20 meq PO ONCE ONE Stop: 11/01/17 17:01 Pregabalin (Lyrica) 100 mg PO BID [facility] Last Admin: 11/01/17 10:22 Dose: 100 mg Ropinirole HCl (Requip) 0.25 mg PO [facility] Last Admin: 10/31/17 21:50 Dose: 0.25 mg Senna/Docusate Sodium (Leelee-Colace) 1 tab PO BID [facility] Last Admin: 11/01/17 10:20 Dose: 1 tab Sennosides (Senokot) 17.2 mg PO Q12H PRN PRN Reason: Moderate Constipation Warfarin Sodium (Coumadin) 5 mg PO DAILY@1600 [facility] Last Admin: 10/31/17 16:30 Dose: 5 mg Allergies Allergy/AdvReac Type Severity Reaction Status Date / Time *MDRO Multi-Drug Resistant AdvReac Unknown Uncoded 01/26/17 17:39 Organism Home Medications Medication Instructions Recorded Confirmed Type carvedilol See Label Instructions .ROUTE 10/29/17 10/29/17 History .COMPLEX furosemide [Lasix] 40 mg PO BID 10/29/17 10/29/17 History linaclotide [Linzess] 290 mcg PO DAILY 10/29/17 10/29/17 History metolazone 2.5 mg PO DAILY 10/29/17 10/29/17 History potassium chloride See Label Instructions .ROUTE 10/29/17 10/29/17 History .COMPLEX pregabalin [Lyrica] 100 mg PO BID 10/29/17 10/29/17 History ropinirole 0.25 mg PO DAILY 10/29/17 10/29/17 History warfarin 5 mg PO DAILY 10/29/17 10/29/17 History Tresiba FlexTouch U-100 70 unit SUB-Q DAILY 10/30/17 10/30/17 History Exam Vital signs: Vital Signs 10/31/17 16:00 10/31/17 20:00 11/01/17 00:00 Temperature 97.5 F L 97.9 F 98.1 F Pulse Rate 95 H 104 H 97 H Respiratory Rate 16 20 20 Blood Pressure 102/58 L 113/58 L 113/58 L Pulse Oximetry 93 L 95 95 11/01/17 01:22 11/01/17 04:00 11/01/17 08:00 Temperature 97.8 F 97.8 F Pulse Rate 97 H 91 H Respiratory Rate 20 20 18 Blood Pressure 130/66 132/71 Pulse Oximetry 91 L 96 Intake & Output 10/31/17 11/01/17 11/01/17 18:59 06:59 18:59 Intake Total 820 / 820 740 / 740 100 / 100 Output Total 750 / 750 600 / 600 Balance 70 / 70 140 / 140 100 / 100 Weight 139.8 kg Intake: IV 100 / 100 100 / 100 100 / 100 Zosyn 4.5 GM Premix 4.5 gm In 100 / 100 100 / 100 100 / 100 100 ml @ 200 mls/hr IV.SIG Q8H [facility] Rx#:[id number] Oral 720 / 720 640 / 640 Output: Urine 750 / 750 600 / 600 Other: Date of Last Bowel Movement 10/27/17 # Bowel Movements 0 0 - Constitutional mild distress (pain in the BLE), morbidly obese - Routine HEENT Exam Head: Present: normocephalic, atraumatic Eye: Present: EOMI, PERRL ENT: Present: mucous membranes moist, oropharynx clear. Absent: dentition normal (poor) - Routine Neck Exam Present: supple, full ROM - Routine Respiratory Exam Present: decreased breath sounds (2/2 habitus), CTA bilaterally. Absent: accessory muscle use - Routine Cardiovascular Exam Present: RRR, S1, S2. Absent: murmur, gallop, rubs - Routine Abdominal Exam Present: soft, normoactive bowel sounds. Absent: tenderness, distended, rebound , guarding, organomegaly, mass - Routine Extremities Exam Present: edema (massive 3+++ with treee bark go), normal capillary refill, tenderness. Absent: cyanosis, clubbing, extremity cold to touch - Routine Skin Exam Present: warm, wounds (b/l ankle stage II circumferential clean based wounds with serous dc). Absent: cyanosis, erythema, mottling Comments: chronic hyperpigmantation discoloration on BL lower legs - Routine Neurological Exam Present: alert, oriented X3, CN II-XII intact, moving all extremities, vision grossly intact, hearing grossly intact - Routine Psychiatric Exam Present: normal affect, normal thought process, cooperative Results - Labs CBC & Chem 7: 10/29/17 09:33 11/01/17 04:31 Labs: Laboratory Results - last 24 hr 09/11/01/17 11/01/17 16:28 04:31 04:31 PT INR Sodium 133 L Potassium 3.1 L D Chloride 93 L Carbon Dioxide 28.1 Anion Gap 12 BUN 33 H Creatinine 1.28 H Estimated GFR 40 L POC Glucose 262 H Random Glucose 219 H Hemoglobin A1c 7.2 H Calcium 8.2 L 11/01/17 11/01/17 11/01/17 04:31 07:35 12:38 PT 25.6 H INR 2.5 Sodium Potassium Chloride Carbon Dioxide Anion Gap BUN Creatinine Estimated GFR POC Glucose 197 H 302 H Random Glucose Hemoglobin A1c Calcium 11/01/17 14:25 PT INR Sodium Potassium Chloride Carbon Dioxide Anion Gap BUN Creatinine Estimated GFR POC Glucose 319 H Random Glucose Hemoglobin A1c Calcium - Imaging Chest X-Ray 10/29/17 09:20 CONCLUSION: Lungs are clear. No infiltrate or mass. Bilateral rotator cuff tears Assessment and Plan - Plan Chronic venostasis Morbid obesity CHronic venostasis ulcers E.coli UTI Coag neg staph bacteremia ? contaminant - no fever, chills - no predisposing factors (e.i. intravasc devices, lines) - strain not typically involved in human infections alicia zosyn to oral/IV levaquin 750 x 7 days - pt told me that she cant take oral abx , IV only 2/2 GI side effects will start as IV but can be switched to oral if tolerates Controll edema Keep BLE elevated monitor clincial response repeat BC jorge Hinton
[2017-11-01] MEDS ORDERED: Dextrose 50% in Water 50 ML Vial IV.PUSH PRN (15:40)
[2017-11-01] MEDS ORDERED: Insulin NovoLOG Aspart Correctional Sugar Inj SQ SCH (17:00)
[2017-11-02] MEDS: HYDROmorphone PF Inj 2 MG/ML Vial IV.PUSH PRN ×2 (05:25→17:37)
[2017-11-02 07:27] LABS: INR 3.3 Ratio; Prothrombin Time 33.5 sec (9.8-11.6)
[2017-11-02 07:39] LABS: Calcium 8.7 mg/dL (8.5-10.1); Carbon Dioxide 30.7 meq/L (21.0-32.0)
[2017-11-02] MEDS: Senna/Docusate Sodium 8.6/50 MG Tablet PO SCH ×2 (08:36→21:04)
[2017-11-02] MEDS: Insulin NovoLOG Aspart Correctional Sugar Inj SQ SCH ×4 (08:36→21:06)
[2017-11-02] MEDS: Insulin Detemir Inj 1,000 UNIT/10 ML Vial SQ SCH ×2 (08:36→21:05)
[2017-11-02] MEDS: Furosemide 20 MG Tablet PO SCH (08:36)
--- NOTE | 2017-11-02 14:51 | P.PN ---
Subjective Interval history: afebrile no complains of pain taking po well, no diarrhea- states no BM x 5 days- "not unusual for me" no vomting Physical Exam Vital signs: Vital Signs 11/01/17 16:00 11/01/17 20:00 11/02/17 00:00 Temperature 97.9 F 98.7 F 98.2 F Pulse Rate 87 97 H 85 Respiratory Rate 18 18 20 Blood Pressure 141/73 H 130/67 106/59 L Pulse Oximetry 97 94 L 95 11/02/17 04:00 11/02/17 08:00 Temperature 97.8 F 95.4 F L Pulse Rate 90 94 H Respiratory Rate 20 17 Blood Pressure 114/56 L 125/75 Pulse Oximetry 96 94 L Intake & Output 11/01/17 11/02/17 11/02/17 18:59 06:59 18:59 Intake Total 680 / 680 150 / 150 Balance 680 / 680 150 / 150 Weight 144.4 kg Intake: IV 200 / 200 150 / 150 Levaquin 750 mg Premix Inj 150 150 / 150 ML @ 100 mls/hr IV.SIG Q48H [facility] Rx#:[id number] Zosyn 4.5 GM Premix 4.5 gm In 200 / 200 100 ml @ 200 mls/hr IV.SIG Q8H [facility] Rx#:[id number] Oral 480 / 480 Other: # Voids 2 # Incontinent Voids 5 Date of Last Bowel Movement 10/27/17 # Bowel Movements 0 Narrative: awake and alert, oriented xx3, no acute distress anicteric neck supple lungs- no rales irregularly irregular rhythm, rate controlled abdomen soft bilateral LE- with extensive open wounds both anterior aspect of the legs- less drainage serous drainage- non fould - Urinary Catheter Management Indwelling Urethral Catheter Cath placed during this visit: yes, but has since been removed by the nurse Reason for continuing: Decision to DC catheter Insertion date: 10/29/17 Insertion time: 15:15 Removal date: 10/30/17 Removal time: 00:00 Results - Labs CBC & Chem 7: 10/29/17 09:33 11/02/17 06:20 Laboratory Results - last 24 hr 11/01/17 11/01/17 11/02/17 17:19 20:38 06:20 PT 33.5 H INR 3.3 Sodium Potassium Chloride Carbon Dioxide Anion Gap BUN Creatinine Estimated GFR POC Glucose 234 H 312 H Random Glucose Calcium 11/02/17 11/02/17 06:20 12:53 PT INR Sodium 131 L Potassium 3.0 L Chloride 92 L Carbon Dioxide 30.7 Anion Gap 8 BUN 26 H Creatinine 1.15 H Estimated GFR 46 L POC Glucose 188 H Random Glucose 162 H Calcium 8.7 Microbiology 11/01/17 20:10 Blood - Peripheral Aerobic Blood Culture - Preliminary No growth in 1 day 11/01/17 20:10 Blood - Peripheral Anaerobic Blood Culture - Preliminary No growth in 1 day 11/01/17 20:15 Blood - Peripheral Aerobic Blood Culture - Preliminary No growth in 1 day 11/01/17 20:15 Blood - Peripheral Anaerobic Blood Culture - Preliminary No growth in 1 day 10/29/17 09:40 Blood - Peripheral Aerobic Blood Culture - Final Staph. cohnii-urealyticum 10/29/17 09:40 Blood - Peripheral Anaerobic Blood Culture - Preliminary No growth in 4 days 10/29/17 09:33 Wound - Foot Gram Stain - Final 10/29/17 09:33 Wound - Foot Wound Culture - Final Pseudomonas aeruginosa Enterococcus faecalis Assessment and Plan - Assessment (1) Weakness Code(s): R53.1 - Weakness Status: Acute (2) Intractable pain Code(s): R52 - Pain, unspecified Status: Acute (3) Chronic cutaneous venous stasis ulcer Code(s): I83.009 - Varicose veins of unspecified lower extremity with ulcer of unspecified site; L97.909 - Non-pressure chronic ulcer of unspecified part of unspecified lower leg with unspecified severity Status: Chronic (4) CKD (chronic kidney disease) stage 3, GFR 30-59 ml/min Code(s): N18.3 - Chronic kidney disease, stage 3 (moderate) Status: Chronic (5) CHF (congestive heart failure) Code(s): I50.9 - Heart failure, unspecified Status: Chronic (6) Diabetes 1.5, managed as type 2 Code(s): E10.9 - Type 1 diabetes mellitus without complications Status: Chronic (7) Hypertension Code(s): I10 - Essential (primary) hypertension Status: Chronic (8) Morbid obesity with BMI of 50.0-59.9, adult Code(s): E66.01 - Morbid (severe) obesity due to excess calories; Z68.43 - Body mass index (BMI) 50-59.9 , adult Status: Chronic (9) Atrial fibrillation Code(s): I48.91 - Unspecified atrial fibrillation Status: Chronic (10) Neuropathy Code(s): G62.9 - Polyneuropathy, unspecified Status: Chronic - Plan 77-year-old female with significant past medical history of chronic venous stasis ulcer wounds, morbid obesity, type 2 diabetes, A. fib, obstructive sleep apnea, congestive heart failure, atrial fibrillation, neuropathy, hypertension, chronic kidney disease. Patient presented to the emergency room complaining of weakness and increasing pain to her legs. Has chronic venous stasis wounds for many years and follows up with Dr. Sebastian as outpatient. Patient indicates she had increasing right leg pain as well as right buttock pain as she has an ulcerated area in the right buttock. Has been very weak and cannot get out of bed. Weakness, physical deconditioning. Patient is morbidly obese, has had chronic venous ulceration for many years. -Consult physical therapy for evaluation Consult case management,- need placement. - agreeable to SNF - patient is almost total care- most she can do is stand briefly and pibvot- wheelchair bound Hx of afib, - in RVR- rate 120s - rate better cotnrolled 90s - Pt. states she stopped taking-meds -resumed Coreg 3.125 mg po BID - - explained to patient that this is given for HR and CHF- now agrees tot benjamin it -Continue Coumadin, INR 3.3 - ff INR- coumadin daily 5 mg daily- Hold todays dose recheck in am Staph bacteremia- wound infections - growing Pseudomonas 3/4 + psoitve for S species - started on zosyn 11/01 - ID consulted- started on IV Levaquin x 7 days 11/01 Chronic venous stasis ulcers,Lactic acid was normal, no fever. Infected wounds - wound cultures growing Pseudomonas Dr Sebastian at bedside 10/30 - - wound care dressing isntructions -Maintain legs elevated - ID contulted - started on Levaquin UTI- e coli- On Levquin CHF, appears well compensated -Continue Lasix 40 mg PO daily- will decrease to 20 mg daily- creatinine slightly up -, continue Metolazone -Monitor electrolytes HTN -continue Coreg Intractable right leg and right buttock pain Hx of peripheral neuropathy Dilaudid 0.5 mg IV every 6 as needed as well as [place] 7.5 mg p.o. every 6 as needed -PT daily Chronic kidney disease stage III, appears at baseline Hypokalemia- 3.9- now down to 3.1 again Avoid nephrotoxic agents -monitor BMP -on lasix- - give extra 20 meq po KCL x 1 now then change KCL regimen to 20 meq po bid starting tonight recheck BMP in am Type 2 diabetes Accu-Cheks before meals and at bedtime with insulin therapy - d/w her- start onn Levemer standing dose with sliding scale - per patient was on higher doses at home- Treiseva and Novolog - check A1C- 7.2 Consult CM for discharge planning, - needs placement ideally- Dr. Brown discuss with aptient- agreeable Continue Coumadin for DVT prophylaxis (5) CHF (congestive heart failure) Qualifiers: Heart failure type: unspecified Heart failure chronicity: chronic Qualified Code(s): I50.9 - Heart failure, unspecified (7) Hypertension Qualifiers: Hypertension type: essential hypertension Qualified Code(s): I10 - Essential (primary) hypertension (9) Atrial fibrillation Qualifiers: Atrial fibrillation type: unspecified Qualified Code(s): I48.91 - Unspecified atrial fibrillation
[2017-11-03] MEDS: HYDROmorphone PF Inj 2 MG/ML Vial IV.PUSH PRN ×3 (02:25→23:58)
[2017-11-03 05:48] LABS: INR 3.3 Ratio; Prothrombin Time 33.2 sec (9.8-11.6)
[2017-11-03 06:09] LABS: Calcium 8.9 mg/dL (8.5-10.1); Carbon Dioxide 31.7 meq/L (21.0-32.0); Potassium 3.3 meq/L (3.5-5.1)
[2017-11-03] MEDS: Insulin NovoLOG Aspart Correctional Sugar Inj SQ SCH ×4 (09:09→20:44)
[2017-11-03] MEDS: Senna/Docusate Sodium 8.6/50 MG Tablet PO SCH ×2 (09:11→22:19)
[2017-11-03] MEDS: Insulin Detemir Inj 1,000 UNIT/10 ML Vial SQ SCH ×2 (09:11→20:44)
[2017-11-03] MEDS: Furosemide 20 MG Tablet PO SCH (09:11)
--- NOTE | 2017-11-03 13:45 | P.PN ---
Subjective Interval history: awake and alert afebrile no diarrhea Physical Exam Vital signs: Vital Signs 11/02/17 16:00 11/02/17 20:00 11/03/17 00:00 Temperature 97.2 F L 97.7 F 97.9 F Pulse Rate 83 87 89 Respiratory Rate 18 20 20 Blood Pressure 113/60 109/58 L 117/60 Pulse Oximetry 95 95 96 11/03/17 02:55 11/03/17 04:00 11/03/17 08:00 Temperature 97.6 F 97.2 F L Pulse Rate 91 H 86 Respiratory Rate 18 20 16 Blood Pressure 112/55 L 114/67 Pulse Oximetry 95 97 11/03/17 10:04 11/03/17 12:00 Temperature 97.8 F Pulse Rate 77 Respiratory Rate 16 16 Blood Pressure 119/62 Pulse Oximetry 95 Intake & Output 11/02/17 11/03/17 11/03/17 18:59 06:59 18:59 Intake Total 480 / 480 960 / 960 Output Total 850 / 850 1000 / 1000 Balance -370 / -370 -40 / -40 Weight 142.7 kg Intake: Oral 480 / 480 960 / 960 Output: Urine 850 / 850 1000 / 1000 Other: # Voids 1 Date of Last Bowel Movement 10/27/17 10/27/17 # Bowel Movements 0 Narrative: awake and alert, oriented xx3, no acute distress anicteric neck supple lungs- no rales irregularly irregular rhythm, rate controlled abdomen soft bilateral LE- with extensive open wounds both anterior aspect of the legs- minimal serous drainage - Urinary Catheter Management Indwelling Urethral Catheter Cath placed during this visit: yes, but has since been removed by the nurse Reason for continuing: Decision to DC catheter Insertion date: 10/29/17 Insertion time: 15:15 Removal date: 10/30/17 Removal time: 00:00 Results - Labs CBC & Chem 7: 10/29/17 09:33 11/03/17 04:32 Laboratory Results - last 24 hr 11/02/17 11/02/17 11/03/17 16:42 20:14 04:32 PT 33.2 H INR 3.3 Sodium Potassium Chloride Carbon Dioxide Anion Gap BUN Creatinine Estimated GFR POC Glucose 252 H 189 H Random Glucose Calcium 11/03/17 11/03/17 11/03/17 04:32 08:01 12:05 PT INR Sodium 136 Potassium 3.3 L Chloride 95 L Carbon Dioxide 31.7 Anion Gap 9 BUN 28 H Creatinine 1.11 H Estimated GFR 48 L POC Glucose 105 219 H Random Glucose 95 Calcium 8.9 Microbiology 11/01/17 20:10 Blood - Peripheral Aerobic Blood Culture - Preliminary No growth in 2 days 11/01/17 20:10 Blood - Peripheral Anaerobic Blood Culture - Preliminary No growth in 2 days 11/01/17 20:15 Blood - Peripheral Aerobic Blood Culture - Preliminary No growth in 2 days 11/01/17 20:15 Blood - Peripheral Anaerobic Blood Culture - Preliminary No growth in 2 days 10/29/17 09:40 Blood - Peripheral Aerobic Blood Culture - Final Staph. cohnii-urealyticum 10/29/17 09:40 Blood - Peripheral Anaerobic Blood Culture - Final No growth in 5 days Assessment and Plan - Assessment (1) Weakness Code(s): R53.1 - Weakness Status: Acute (2) Intractable pain Code(s): R52 - Pain, unspecified Status: Acute (3) Chronic cutaneous venous stasis ulcer Code(s): I83.009 - Varicose veins of unspecified lower extremity with ulcer of unspecified site; L97.909 - Non-pressure chronic ulcer of unspecified part of unspecified lower leg with unspecified severity Status: Chronic (4) CKD (chronic kidney disease) stage 3, GFR 30-59 ml/min Code(s): N18.3 - Chronic kidney disease, stage 3 (moderate) Status: Chronic (5) CHF (congestive heart failure) Code(s): I50.9 - Heart failure, unspecified Status: Chronic (6) Diabetes 1.5, managed as type 2 Code(s): E10.9 - Type 1 diabetes mellitus without complications Status: Chronic (7) Hypertension Code(s): I10 - Essential (primary) hypertension Status: Chronic (8) Morbid obesity with BMI of 50.0-59.9, adult Code(s): E66.01 - Morbid (severe) obesity due to excess calories; Z68.43 - Body mass index (BMI) 50-59.9 , adult Status: Chronic (9) Atrial fibrillation Code(s): I48.91 - Unspecified atrial fibrillation Status: Chronic (10) Neuropathy Code(s): G62.9 - Polyneuropathy, unspecified Status: Chronic - Plan 77-year-old female with significant past medical history of chronic venous stasis ulcer wounds, morbid obesity, type 2 diabetes, A. fib, obstructive sleep apnea, congestive heart failure, atrial fibrillation, neuropathy, hypertension, chronic kidney disease. Patient presented to the emergency room complaining of weakness and increasing pain to her legs. Has chronic venous stasis wounds for many years and follows up with Dr. Sebastian as outpatient. Patient indicates she had increasing right leg pain as well as right buttock pain as she has an ulcerated area in the right buttock. Has been very weak and cannot get out of bed. Weakness, physical deconditioning. Patient is morbidly obese, has had chronic venous ulceration for many years. -Consult physical therapy for evaluation Consult case management,- need placement. - agreeable to SNF - patient is almost total care- most she can do is stand briefly and pibvot- wheelchair bound Hx of afib, - in RVR- rate 120s - rate better cotnrolled 90s - Pt. states she stopped taking-meds -resumed Coreg 3.125 mg po BID - - explained to patient that this is given for HR and CHF- now agrees tot benjamin it -Continue Coumadin, INR 3.3 - ff INR- coumadin daily 5 mg daily- Hold todays dose recheck in am Staph bacteremia- wound infections - growing Pseudomonas 3/4 + psoitve for S species - started on zosyn 11/01 - ID consulted- started on IV Levaquin x 7 days 11/01 Chronic venous stasis ulcers,Lactic acid was normal, no fever. Infected wounds - wound cultures growing Pseudomonas Dr Sebastian at bedside 10/30 - - wound care dressing isntructions -Maintain legs elevated - ID ff- on IV Levaquin x 7 days- till 11.06 - per aptient does not do well with po antiibotics UTI- e coli- On Levaquin CHF, appears well compensated -Continue Lasix 40 mg PO daily- will decrease to 20 mg daily- creatinine slightly up -, continue Metolazone -Monitor electrolytes HTN -continue Coreg Intractable right leg and right buttock pain Hx of peripheral neuropathy decrease Dilaudid 0.25 mg IV every 6 as needed as well as [place] 7.5 mg p.o. every 6 as needed -PT daily Chronic kidney disease stage III, appears at baseline Hypokalemia- 3.3 Avoid nephrotoxic agents -monitor BMP -on lasix- change KCL regimen to 40 meq po bid starting tonight recheck BMP in am Type 2 diabetes Accu-Cheks before meals and at bedtime with insulin therapy - d/w her- start onn Levemer standing dose with sliding scale - per patient was on higher doses at home- Treiseva and Novolog - check A1C- 7.2 - BS reviewed- continue current regimen and adjust Consult CM for discharge planning, - SNF then fdc- Dr. Brown discuss with aptient- agreeable Continue Coumadin for DVT prophylaxis (5) CHF (congestive heart failure) Qualifiers: Heart failure type: unspecified Heart failure chronicity: chronic Qualified Code(s): I50.9 - Heart failure, unspecified (7) Hypertension Qualifiers: Hypertension type: essential hypertension Qualified Code(s): I10 - Essential (primary) hypertension (9) Atrial fibrillation Qualifiers: Atrial fibrillation type: unspecified Qualified Code(s): I48.91 - Unspecified atrial fibrillation
[2017-11-04 08:30] LABS: Calcium 9.3 mg/dL (8.5-10.1); Carbon Dioxide 32.3 meq/L (21.0-32.0); Potassium 3.3 meq/L (3.5-5.1)
[2017-11-04] MEDS: Senna/Docusate Sodium 8.6/50 MG Tablet PO SCH ×2 (08:54→19:59)
[2017-11-04] MEDS: Furosemide 20 MG Tablet PO SCH (08:54)
[2017-11-04] MEDS: Insulin Detemir Inj 1,000 UNIT/10 ML Vial SQ SCH ×2 (08:54→21:34)
[2017-11-04] MEDS: Insulin NovoLOG Aspart Correctional Sugar Inj SQ SCH ×4 (08:56→21:34)
--- NOTE | 2017-11-04 09:07 | P.PNIM ---
Subjective Interval history: f/u; wounds lower extremities in no acute distress. afebrile. no new complaints. Physical Exam Vital signs: Vital Signs 11/03/17 10:04 11/03/17 12:00 11/03/17 16:00 Temperature 97.8 F 97.5 F L Pulse Rate 82 88 Respiratory Rate 16 16 16 Blood Pressure 119/62 120/59 L Pulse Oximetry 95 96 11/03/17 17:50 11/03/17 20:00 11/04/17 00:00 Temperature 98.5 F 98.8 F Pulse Rate 92 H 93 H Respiratory Rate 16 19 17 Blood Pressure 116/56 L 122/64 Pulse Oximetry 94 L 93 L 11/04/17 04:00 Temperature 97.9 F Pulse Rate 83 Respiratory Rate 14 Blood Pressure 128/62 Pulse Oximetry 95 Intake & Output 11/03/17 11/04/17 11/04/17 18:59 06:59 18:59 Intake Total 630 / 630 Output Total 900 / 900 1350 / 1350 Balance -900 / -900 -720 / -720 Weight 141.7 kg Intake: IV 150 / 150 Levaquin 750 mg Premix Inj 150 150 / 150 ML @ 100 mls/hr IV.SIG Q48H MICHOACANO Rx#:[id number] Oral 480 / 480 Output: Urine 900 / 900 1350 / 1350 Other: Date of Last Bowel Movement 10/27/17 10/27/17 - Constitutional no acute distress - Routine Respiratory Exam Present: CTA bilaterally - Routine Cardiovascular Exam Present: RRR - Routine Abdominal Exam Present: soft - Routine Extremities Exam Comments: legs covered with clean dressing. - Routine Neurological Exam Present: alert, oriented X3 - Urinary Catheter Management Indwelling Urethral Catheter Cath placed during this visit: yes, but has since been removed by the nurse Reason for continuing: Decision to DC catheter Insertion date: 10/29/17 Insertion time: 15:15 Removal date: 10/30/17 Removal time: 00:00 Results - Labs CBC & Chem 7: 10/29/17 09:33 11/04/17 07:26 Laboratory Results - last 24 hr 11/03/17 11/03/17 11/04/17 12:05 16:36 07:26 Sodium 134 L Potassium 3.3 L Chloride 96 L Carbon Dioxide 32.3 H Anion Gap 6 BUN 26 H Creatinine 0.98 Estimated GFR 55 L POC Glucose 219 H 199 H Random Glucose 94 Calcium 9.3 Microbiology 11/01/17 20:10 Blood - Peripheral Aerobic Blood Culture - Preliminary No growth in 2 days 11/01/17 20:10 Blood - Peripheral Anaerobic Blood Culture - Preliminary No growth in 2 days 11/01/17 20:15 Blood - Peripheral Aerobic Blood Culture - Preliminary No growth in 2 days 11/01/17 20:15 Blood - Peripheral Anaerobic Blood Culture - Preliminary No growth in 2 days 10/29/17 09:40 Blood - Peripheral Aerobic Blood Culture - Final Staph. cohnii-urealyticum 10/29/17 09:40 Blood - Peripheral Anaerobic Blood Culture - Final No growth in 5 days Assessment and Plan - Assessment (1) Weakness Code(s): R53.1 - Weakness Status: Acute (2) Intractable pain Code(s): R52 - Pain, unspecified Status: Acute (3) Chronic cutaneous venous stasis ulcer Code(s): I83.009 - Varicose veins of unspecified lower extremity with ulcer of unspecified site; L97.909 - Non-pressure chronic ulcer of unspecified part of unspecified lower leg with unspecified severity Status: Chronic (4) CKD (chronic kidney disease) stage 3, GFR 30-59 ml/min Code(s): N18.3 - Chronic kidney disease, stage 3 (moderate) Status: Chronic (5) CHF (congestive heart failure) Code(s): I50.9 - Heart failure, unspecified Status: Chronic (6) Diabetes 1.5, managed as type 2 Code(s): E10.9 - Type 1 diabetes mellitus without complications Status: Chronic (7) Hypertension Code(s): I10 - Essential (primary) hypertension Status: Chronic (8) Morbid obesity with BMI of 50.0-59.9, adult Code(s): E66.01 - Morbid (severe) obesity due to excess calories; Z68.43 - Body mass index (BMI) 50-59.9 , adult Status: Chronic (9) Atrial fibrillation Code(s): I48.91 - Unspecified atrial fibrillation Status: Chronic (10) Neuropathy Code(s): G62.9 - Polyneuropathy, unspecified Status: Chronic - Plan Weakness, physical deconditioning. Patient is morbidly obese, has had chronic venous ulceration for many years. -Consult physical therapy for evaluation Consult case management,- need placement. - agreeable to SNF - patient is almost total care- most she can do is stand briefly and pibvot- wheelchair bound Hx of afib, - rate overall controlled. - Pt. states she stopped taking-meds -resumed Coreg 3.125 mg po BID - - -Continue Coumadin,when INR < 3.- - ff INR- coumadin daily 5 mg daily- Hold today dose recheck in am Staph bacteremia- contamination?- repeated blood cultures negative. wound infections - growing Pseudomonas / + psoitve for S species - ID consulted- started on IV Levaquin x 7 days 11/01; will change to po today. Chronic venous stasis ulcers,Lactic acid was normal, no fever. Infected wounds - wound cultures growing Pseudomonas Dr Sebastian at bedside 10/30 - - wound care dressing instructions -Maintain legs elevated - ID ff- on IV Levaquin x 7 days- till 11.06 UTI- e coli- On Levaquin CHF, appears well compensated -Continue Lasixto 20 mg daily- creatinine slightly up -, continue Metolazone -Monitor electrolytes HTN -continue Coreg Intractable right leg and right buttock pain Hx of peripheral neuropathy decrease Dilaudid 0.25 mg IV every 6 as needed as well as [place] 7.5 mg p.o. every 6 as needed -PT daily Chronic kidney disease stage III, appears at baseline Hypokalemia- 3.3 Avoid nephrotoxic agents -monitor BMP -on lasix- changed KCL regimen to 40 meq po bid recheck BMP in am Type 2 diabetes Accu-Cheks before meals and at bedtime with insulin therapy - started on Le[place] standing dose with sliding scale - per patient was on higher doses at home- Perry and Novolog - check A1C- 7.2 - BS reviewed- continue current regimen and adjust Discussed Condition With: the patient and case management. Discharge Planning: dc to SNF tomorrow if stable. (5) CHF (congestive heart failure) Qualifiers: Heart failure type: unspecified Heart failure chronicity: chronic Qualified Code(s): I50.9 - Heart failure, unspecified (7) Hypertension Qualifiers: Hypertension type: essential hypertension Qualified Code(s): I10 - Essential (primary) hypertension (9) Atrial fibrillation Qualifiers: Atrial fibrillation type: unspecified Qualified Code(s): I48.91 - Unspecified atrial fibrillation
[2017-11-04] MEDS: levoFLOXacin 750 MG Tablet PO SCH (10:26)
[2017-11-04 10:46] LABS: INR 2.1 Ratio; Prothrombin Time 21.4 sec (9.8-11.6)
[2017-11-04] MEDS ORDERED: Warfarin Consult Pharmacy OTHER PRN (15:08)
[2017-11-05 05:17] LABS: Prothrombin Time 19.8 sec (9.8-11.6)
[2017-11-05 05:30] LABS: Carbon Dioxide 29.5 meq/L (21.0-32.0); Potassium 3.6 meq/L (3.5-5.1)
[2017-11-05 08:33] VITALS: RESP 16; O2SAT 96
[2017-11-05] MEDS: Insulin Detemir Inj 1,000 UNIT/10 ML Vial SQ SCH (09:19)
[2017-11-05] MEDS: Insulin NovoLOG Aspart Correctional Sugar Inj SQ SCH ×3 (09:19→17:00)
[2017-11-05] MEDS: Furosemide 20 MG Tablet PO SCH (09:20)
[2017-11-05] MEDS: levoFLOXacin 750 MG Tablet PO SCH (09:20)
[2017-11-05] MEDS: Senna/Docusate Sodium 8.6/50 MG Tablet PO SCH (09:20)
--- NOTE | 2017-11-05 10:17 | P.PNIM ---
Subjective Interval history: in no acute distress. resting comfortably. no fever. no new complaints. Physical Exam Vital signs: Vital Signs 11/04/17 12:00 11/04/17 16:00 11/04/17 17:34 Temperature 98.3 F 97.9 F Pulse Rate 89 86 Respiratory Rate 16 16 16 Blood Pressure 129/59 L 130/58 L Pulse Oximetry 96 96 11/04/17 20:00 11/05/17 00:00 11/05/17 04:00 Temperature 97.9 F 97.7 F 97.7 F Pulse Rate 85 86 91 H Respiratory Rate 21 20 20 Blood Pressure 116/55 L 105/56 L 123/62 Pulse Oximetry 97 95 93 L 11/05/17 08:00 Temperature 98.4 F Pulse Rate 85 Respiratory Rate 16 Blood Pressure 123/64 Pulse Oximetry 96 Intake & Output 11/04/17 11/05/17 11/05/17 18:59 06:59 18:59 Intake Total 480 / 480 360 / 360 Output Total 1350 / 1350 900 / 900 Balance -870 / -870 -540 / -540 Weight 142.1 kg Intake: Oral 480 / 480 360 / 360 Output: Urine 1350 / 1350 900 / 900 Other: # Voids 1 # Incontinent Voids 5 Date of Last Bowel Movement 10/27/17 10/27/17 # Bowel Movements 0 - Constitutional no acute distress - Routine Respiratory Exam Present: CTA bilaterally - Routine Cardiovascular Exam Present: RRR - Routine Abdominal Exam Present: soft - Routine Extremities Exam Comments: legs covered with clean dressing. - Routine Neurological Exam Present: alert, oriented X3 - Urinary Catheter Management Indwelling Urethral Catheter Cath placed during this visit: yes, but has since been removed by the nurse Reason for continuing: Decision to DC catheter Insertion date: 10/29/17 Insertion time: 15:15 Removal date: 10/30/17 Removal time: 00:00 Results - Labs CBC & Chem 7: 10/29/17 09:33 11/05/17 04:10 Laboratory Results - last 24 hr 11/04/17 11/04/17 11/05/17 10:22 20:41 04:10 PT 21.4 H D 19.8 H INR 2.1 2.0 Sodium Potassium Chloride Carbon Dioxide Anion Gap BUN Creatinine Estimated GFR POC Glucose 236 H Random Glucose Calcium 11/05/17 11/05/17 04:10 08:06 PT INR Sodium 135 L Potassium 3.6 Chloride 98 Carbon Dioxide 29.5 Anion Gap 8 BUN 23 H Creatinine 1.10 H Estimated GFR 48 L POC Glucose 128 H Random Glucose 165 H Calcium 9.0 Microbiology 11/01/17 20:10 Blood - Peripheral Aerobic Blood Culture - Preliminary No growth in 3 days 11/01/17 20:10 Blood - Peripheral Anaerobic Blood Culture - Preliminary No growth in 3 days 11/01/17 20:15 Blood - Peripheral Aerobic Blood Culture - Preliminary No growth in 3 days 11/01/17 20:15 Blood - Peripheral Anaerobic Blood Culture - Preliminary No growth in 3 days Assessment and Plan - Assessment (1) Weakness Code(s): R53.1 - Weakness Status: Acute (2) Intractable pain Code(s): R52 - Pain, unspecified Status: Acute (3) Chronic cutaneous venous stasis ulcer Code(s): I83.009 - Varicose veins of unspecified lower extremity with ulcer of unspecified site; L97.909 - Non-pressure chronic ulcer of unspecified part of unspecified lower leg with unspecified severity Status: Chronic (4) CKD (chronic kidney disease) stage 3, GFR 30-59 ml/min Code(s): N18.3 - Chronic kidney disease, stage 3 (moderate) Status: Chronic (5) CHF (congestive heart failure) Code(s): I50.9 - Heart failure, unspecified Status: Chronic (6) Diabetes 1.5, managed as type 2 Code(s): E10.9 - Type 1 diabetes mellitus without complications Status: Chronic (7) Hypertension Code(s): I10 - Essential (primary) hypertension Status: Chronic (8) Morbid obesity with BMI of 50.0-59.9, adult Code(s): E66.01 - Morbid (severe) obesity due to excess calories; Z68.43 - Body mass index (BMI) 50-59.9 , adult Status: Chronic (9) Atrial fibrillation Code(s): I48.91 - Unspecified atrial fibrillation Status: Chronic (10) Neuropathy Code(s): G62.9 - Polyneuropathy, unspecified Status: Chronic - Plan Weakness, physical deconditioning. Patient is morbidly obese, has had chronic venous ulceration for many years. -Consulted physical therapy for evaluation Consult case management,- need placement. - agreeable to SNF - patient is almost total care- most she can do is stand briefly and pibvot- wheelchair bound ; functional quadriplegia. Hx of afib, - rate overall controlled. - Pt. states she stopped taking-meds -resumed Coreg 3.125 mg po BID - - -Continue Coumadin. - ff INR- coumadin daily 5 mg daily- Staph bacteremia- contamination?- repeated blood cultures negative. wound infections - growing Pseudomonas 3/4 + psoitve for S species - ID consulted- started on IV Levaquin x 7 days 11/01; changed to po to finish the course. Chronic venous stasis ulcers,Lactic acid was normal, no fever. Infected wounds - wound cultures growing Pseudomonas Dr Sebastian at bedside 10/30 - - wound care dressing instructions -Maintain legs elevated - ID ff- on IV Levaquin x 7 days- UTI- e coli- On Levaquin CHF, appears well compensated -Continue Lasixto 20 mg daily- creatinine slightly up -, continue Metolazone -Monitor electrolytes HTN -continue Coreg Intractable right leg and right buttock pain Hx of peripheral neuropathy decrease Dilaudid 0.25 mg IV every 6 as needed as well as [place] 7.5 mg p.o. every 6 as needed -PT daily Chronic kidney disease stage III, appears at baseline Hypokalemia- Avoid nephrotoxic agents -monitor BMP -on lasix- changed KCL regimen to 40 meq po bid Type 2 diabetes Accu-Cheks before meals and at bedtime with insulin therapy - started on Levemer standing dose with sliding scale - per patient was on higher doses at home- Treiseva and Novolog - check A1C- 7.2 - BS reviewed- continue current regimen and adjust Discharge Planning: dc to SNF today after seen by wound care nurse. see med list. f/u; pcp and wound care. d/w the patient, RN and case management. previously d/w . time spent 35 min. (5) CHF (congestive heart failure) Qualifiers: Heart failure type: unspecified Heart failure chronicity: chronic Qualified Code(s): I50.9 - Heart failure, unspecified (7) Hypertension Qualifiers: Hypertension type: essential hypertension Qualified Code(s): I10 - Essential (primary) hypertension (9) Atrial fibrillation Qualifiers: Atrial fibrillation type: unspecified Qualified Code(s): I48.91 - Unspecified atrial fibrillation
--- NOTE | 2017-11-05 10:17 | P.DS ---
Date of admission: 10/31/17 14:35 Primary care physician: Megan Strong MD Brief History from admission: This is a 77-year-old female with significant past medical history of chronic venous stasis ulcer wounds, morbid obesity, type 2 diabetes, A. fib, obstructive sleep apnea, congestive heart failure, atrial fibrillation, neuropathy, hypertension, chronic kidney disease. Patient presented to the emergency room complaining of weakness and increasing pain to her legs. Patient indicates that she has had chronic venous stasis wounds for many years and follows up with Dr. Sebastian as outpatient. [facility] indicates [facility] who has been coming to do daily dressing changes however she was dropped from their services a couple of weeks ago. She called hospice and they came and helped her out and did some wound care which was done yesterday. Today she was due to see Dr. Sebastian however she was unable to get out of bed and had increasing pain therefore her home health aide decided to call [facility] and patient was brought into the hospital. She has a home health aid who comes in 2 hours a day from Friday through Friday to help with ADLs. Patient indicates she has increasing pain to the right leg and right buttock, this is chronic however it was severe today. States that she does not mobilize very much and has a motorized wheelchair. She denies any fever, no chills. No chest pain, no shortness of breath, no nausea, no vomiting, no diarrhea. Appetite has been poor because of the increasing pain. Patient was evaluated in the emergency room, laboratory workup was completed. She has a history of chronic kidney disease, BUN and creatinine appear to be at baseline, 23/1.03. She was noted hypokalemic, potassium 3.4. Lactic acid was 1.5. Blood cultures were obtained. Urinalysis showed mild bacteriuria. Chest x-ray did not reveal any acute findings. Pt. states she doesn't take her Lasix regularly and recently Metolazone was added to improve diuresing. Patient was given hydromorphone 2 mg as well as 4 mg of morphine. Pain slightly improved. Pt. states she can't manage her wound care at home and is concerned about discharge. Case management has evaluated for possible placement at SNF. ED physician called Dr. Sebastian and she recommended wound care consult and f/u as OP when pt is discharged. Pt. is admitted for further evaluation and treatment. DS: Diagnosis - Discharge Diagnosis (1) Weakness Status: Acute (2) Intractable pain Status: Acute (3) Chronic cutaneous venous stasis ulcer Status: Chronic (4) CKD (chronic kidney disease) stage 3, GFR 30-59 ml/min Status: Chronic (5) CHF (congestive heart failure) Status: Chronic (6) Diabetes 1.5, managed as type 2 Status: Chronic (7) Hypertension Status: Chronic (8) Morbid obesity with BMI of 50.0-59.9, adult Status: Chronic (9) Atrial fibrillation Status: Chronic (10) Neuropathy Status: Chronic DS: Summary Hospital Course: Weakness, physical deconditioning. Patient is morbidly obese, has had chronic venous ulceration for many years. -Consulted physical therapy for evaluation Consult case management,- need placement. - agreeable to SNF - patient is almost total care- most she can do is stand briefly and pibvot- wheelchair bound ; functional quadriplegia. Hx of afib, - rate overall controlled. - Pt. states she stopped taking-meds -resumed Coreg 3.125 mg po BID - - -Continue Coumadin. - ff INR- coumadin daily 5 mg daily- Staph bacteremia- contamination?- repeated blood cultures negative. wound infections - growing Pseudomonas 3/4 + psoitve for S species - ID consulted- started on IV Levaquin x 7 days 11/01; changed to po to finish the course. Chronic venous stasis ulcers,Lactic acid was normal, no fever. Infected wounds - wound cultures growing Pseudomonas Dr Sebastian at bedside 10/30 - - wound care dressing instructions -Maintain legs elevated - ID ff- on IV Levaquin x 7 days- UTI- e coli- On Levaquin CHF, appears well compensated -Continue Lasixto 20 mg daily- creatinine slightly up -, continue Metolazone -Monitor electrolytes HTN -continue Coreg Intractable right leg and right buttock pain Hx of peripheral neuropathy decrease Dilaudid 0.25 mg IV every 6 as needed as well as [place] 7.5 mg p.o. every 6 as needed -PT daily Chronic kidney disease stage III, appears at baseline Hypokalemia- Avoid nephrotoxic agents -monitor BMP -on lasix- changed KCL regimen to 40 meq po bid Type 2 diabetes Accu-Cheks before meals and at bedtime with insulin therapy - started on Levemer standing dose with sliding scale - per patient was on higher doses at home- [place] and Novolog - check A1C- 7.2 - BS reviewed- continue current regimen and adjust - Time Spent with Patient Total time spent providing and/or coordinating discharge services: Greater than 30 minutes (35 min.) - Quality: VTE Deep Vein Thrombosis/Pulmonary Embolism Present on Admission: No Exam Vital signs: Vital Signs 11/04/17 12:00 11/04/17 16:00 11/04/17 17:34 Temperature 98.3 F 97.9 F Pulse Rate 89 86 Respiratory Rate 16 16 16 Blood Pressure 129/59 L 130/58 L Pulse Oximetry 96 96 11/04/17 20:00 11/05/17 00:00 11/05/17 04:00 Temperature 97.9 F 97.7 F 97.7 F Pulse Rate 85 86 91 H Respiratory Rate 21 20 20 Blood Pressure 116/55 L 105/56 L 123/62 Pulse Oximetry 97 95 93 L 11/05/17 08:00 Temperature 98.4 F Pulse Rate 85 Respiratory Rate 16 Blood Pressure 123/64 Pulse Oximetry 96 Intake & Output 11/04/17 11/05/17 11/05/17 18:59 06:59 18:59 Intake Total 480 / 480 360 / 360 Output Total 1350 / 1350 900 / 900 Balance -870 / -870 -540 / -540 Weight 142.1 kg Intake: Oral 480 / 480 360 / 360 Output: Urine 1350 / 1350 900 / 900 Other: # Voids 1 # Incontinent Voids 5 Date of Last Bowel Movement 10/27/17 10/27/17 # Bowel Movements 0 Results Procedures completed during hospitalization: bedside debridement of the leg wound. Labs on day of discharge: Labs from last 24 hours 11/05/17 11/05/17 11/05/17 08:06 04:10 04:10 PT 19.8 H INR 2.0 Sodium 135 L Potassium 3.6 Chloride 98 Carbon Dioxide 29.5 Anion Gap 8 BUN 23 H Creatinine 1.10 H Estimated GFR 48 L POC Glucose 128 H Random Glucose 165 H Calcium 9.0 11/04/17 11/04/17 20:41 10:22 PT 21.4 H D INR 2.1 Sodium Potassium Chloride Carbon Dioxide Anion Gap BUN Creatinine Estimated GFR POC Glucose 236 H Random Glucose Calcium Preliminary micro results at discharge 11/01/17 20:10 Aerobic Blood Culture - Preliminary Blood - Peripheral No growth in 3 days Anaerobic Blood Culture - Preliminary No growth in 3 days 11/01/17 20:15 Aerobic Blood Culture - Preliminary Blood - Peripheral No growth in 3 days Anaerobic Blood Culture - Preliminary No growth in 3 days - Impressions ITS Impressions Chest X-Ray 10/29/17 09:20 CONCLUSION: Lungs are clear. No infiltrate or mass. Bilateral rotator cuff tears Discharge Plan - Physicians Team Primary Care Provider: Megan Strong Attending Provider: Laura Akers Other Providers: Rosangela Sebastian MD ; Alexis Velazco ; Fiorella Ivy MD
[2017-11-05 13:42] VITALS: BP 125/60; PULSE 86; TEMP 98.1
== END 2017-11-05 17:00 ==
LOC: NEDA 08:48 → NEPC 08:48 → NEDA 18:04 → N04 18:06
PROVIDERS: ADMIT Internal Medicine; ATTEND Internal Medicine